=== PATIENT | female | born 1960 | race African-American/Black ===

== ENCOUNTER 2025-01-14 14:37 | Emergency (ER) | payer MEDICARE, SELFPAY ==
[2025-01-14] VITALS (23 sets, daily range): BP systolic 109–174; BP diastolic 66–98; PULSE 69–95; RESP 11–22; TEMP 36.3–36.8; O2SAT 92–100
--- NOTE | ~2025-01-14 | CT_ITS ---
EXAMINATION: CT chest abdomen pelvis wo con DATE: 01/14/2025 15:51 INDICATION: abdominal pain CONTRAST ALLERGY . TECHNIQUE: Computed tomography (CT) of the chest, abdomen, and pelvis was performed with 100 mL Omnip aque-350 intravenous contrast. Automated exposure control and iterative reconstruction technique were employed. The dose-length product was 1317.78 mGy-cm. COMPARISON: None FINDINGS: CHEST: Thoracic aorta: No significant dilation. No dissection. Moderate arch calcification. Lung parenchyma and airways: Lungs and airways are clear. Thoracic inlet, axillae and chest wall: 1.6 cm left thyroid nodule. Post surgical change in the left breast. Dermal thickening over the left breast. Mediastinum: No mass or lymphadenopathy. Heart and pericardium: Mild cardiomegaly. Mitral calcification. Small volume pericardial fluid. Coronary artery calcifications: Mild. Pleura: No effusion or mass. Thoracic bones: No acute osseous finding in the chest. Scoliosis. Vertebroplasty cement at T8 and T9. ABDOMEN/PELVIS: Liver: 4.3 cm right lobe mass. Linear and serpiginous hyperdensities in the left lobe, likely represe nting an area of post procedural change. Biliary/Gallbladder: Gallbladder is normal. No bile duct dilation. Pancreas: No mass or duct dilation. Spleen: Multiple hypodensities in the spleen. Adrenals:10.1 cm right adrenal mass with calcifications and macroscopic fat. Normal left adrenal glan d. Kidneys: 14 mm exophytic indeterminate density lesion in the posterior right midpole. 5 mm partially exophytic indeterminate density lesion in the posteromedial left midpole. Large bilateral simple albertina l cysts measuring up to 9.0 cm on the right. Multiple additional subcentimeter renal hypodensities, t oo small to characterize, but likely represent cysts. GI tract: Status post right hemicolectomy. Uncomplicated anastomosis. No small or large bowel dilatio n. Surgically absent appendix. Diverticulosis without diverticulitis. Mesentery/Peritoneum: No ascites, mass, or free air. Retroperitoneum: No mass Atherosclerotic calcifications of intra-abdominal arterial vessels. Pelvis: The urinary bladder is mostly empty. Small appearing uterus, likely secondary to partial hyst erectomy. Bilateral ovaries not confidently identified. Soft Tissues: Small, uncomplicated fat-containing periumbilical hernias. Right gluteal injection site s. Right posterior drug pump, catheter terminates over the lower thoracic spine. Abdominopelvic bones: No acute osseous finding in the abdomen/pelvis. IMPRESSION: 1.6 cm left thyroid nodule, recommend outpatient thyroid ultrasound for further characterization. Mild cardiomegaly. Trace pericardial effusion. Dermal thickening in left breast, correlate clinically for findings of infiltrative carcinoma or infe ction. Post surgical changes in the left breast. 4.3 cm right liver lobe mass, concerning for metastatic disease. 10.1 cm right adrenal mass, may represent unilateral metastatic disease, or primary neoplastic lesion . Multiple indeterminate density renal lesions, may represent hemorrhagic/proteinaceous cysts, but catalina gnancy is not excluded. Comparison to outside studies would be helpful. Reviewed, dictated and finalized at location K. IMPRESSION: 1.6 cm left thyroid nodule, recommend outpatient thyroid ultrasound for further characterization. Mild cardiomegaly. Trace pericardial effusion. Dermal thickening in left breast, correlate clinically for findings of infiltra tive carcinoma or infection. Post surgical changes in the left breast. 4.3 cm right liver lobe mass, concerning for metastatic disease. 10.1 cm right adrenal mass, may represent unilateral metastatic disease, or ariel shamar neoplastic lesion. Multiple indeterminate density renal lesions, may represent hemorrhagic/protein aceous cysts, but malignancy is not excluded. Comparison to outside studies would be helpful.
--- NOTE | ~2025-01-14 | XR_ITS ---
EXAMINATION: XR chest 1V portable Exam Date/Time: 01/14/2025 15:07 CDT HISTORY: Shortness of breath Comparison: None. RESULT: Lines, tubes, and devices: Left axillary or left breast surgical clips. Vertebroplasty cement in the thoracic spine Lungs and pleura: Right hemidiaphragm elevation. Streaky right basilar opacities. Cardiomediastinal silhouette: Stable. Other: No acute osseous or upper abdominal finding. IMPRESSION: Right hemidiaphragm elevation with streaky bibasilar opacities likely representing scar/atelectasis. Reviewed, dictated and finalized at location K. IMPRESSION: Right hemidiaphragm elevation with streaky bibasilar opacities likely represent ing scar/atelectasis.
--- NOTE | ~2025-01-14 | CT_ITS ---
EXAMINATION: CT brain wo con DATE: 01/14/2025 15:44 INDICATION: Altered mental status . TECHNIQUE: Computed tomography (CT) of the head was performed without intravenous contrast. The mA wa s adjusted according to patient size. Iterative reconstruction technique was employed. The dose-lengt h product was 605.33 mGy-cm. COMPARISON: None. FINDINGS: No acute intracranial hemorrhage or extra-axial fluid collection. No hydrocephalus, mass, or herniation. No acute ischemic infarct. Unremarkable dural venous sinus attenuation. No acute osseous abnormality. The aerated spaces are clear. Mild atrophy and chronic white matter change. Atherosclerotic intracranial calcification. IMPRESSION: No acute intracranial process. Reviewed, dictated and finalized at location K.
--- NOTE | 2025-01-14 14:42 | ECG_ITS ---
Test Date: 2025-01-14 14:41:05 Measurements Intervals [place] Rate: 72 P: 42 IA: 157 QRS: -34 QRSD: 107 T: -2 QT: 400 QTc: 439 Interpretive Statements SINUS RHYTHM LEFT AXIS DEVIATION [QRS AXIS < -30] No previous ECG available for comparison Electronically Signed On 01-15-2025 22:33:57 CDT by Carla Jeter M.D.
[2025-01-14 15:00] LABS: Hematocrit 37.1 % (37.0-47.0); Hemoglobin 11.5 g/dL (12.0-15.0); Immature Granulocyte Percent A 0.9 % (0-0.5); Lymphocytes Absolute Auto 1.53 K/mm3 (0.9-3.2); Mean Corpuscular HGB Conc 31.0 g/dl (32-36); Mean Corpuscular Hemoglobin 26.4 pg (26-34); Mean Corpuscular Volume 85.1 fl (80-100); Nucleated Red Blood Cells Absolute Auto 0.000 K/mm3 (0.0-0.012); Nucleated Red Blood Cells Perc 0.0 % (0.0-0.2); Platelet Count Result 315 k/mm3 (150-375); Red Blood Count 4.36 M/mm3 (4.2-5.4); White Blood Count 10.1 K/mm3 (4.5-10.0)
[2025-01-14 15:12] LABS: Alanine Aminotransferase 24 U/L (6-35); Albumin Level 4.0 g/dL (3.5-5.1); Alkaline Phosphatase 67 U/L (38-126); Anion Gap 9 mmol/L (4-12); Aspartate Amino Transferase 28 U/L (14-36); Bilirubin,Total 0.6 mg/dL (0.2-1.3); Blood Urea Nitrogen 33 mg/dL (7-17); Calcium 9.5 mg/dL (8.4-10.2); Carbon Dioxide 29 mmol/L (22-30); Chloride 103 mmol/L (98-107); Estimated CRCL calculation 35 ml/min; Estimated Glomerular Filt Rate 29; Glucose 204 mg/dL (65-110); Lipase 33 U/L (23-300); Magnesium 1.9 mg/dL (1.6-2.3); Potassium 3.8 mmol/L (3.4-5.0); Sodium 141 mmol/L (137-145); Total Protein 7.4 g/dL (6.3-8.2)
[2025-01-14 15:16] LABS: INR 1.0; Partial Thromboplastin Time 28.9 Seconds (22.3-36.8); Prothrombin Time 13.3 Seconds (11.1-14.7)
[2025-01-14 15:22] LABS: NT Pro B Type Natriuretic Pept 551 pg/mL (19.9-100); Troponin I < 0.012 ng/mL (0.000-0.034)
--- OUTSIDE RECORDS SUMMARY | 2025-01-14 15:26 | XMS_ITS | Encounter Summary ---
Author Organization [facility] Address [address] [place] [address] Phone Care Team Providers Care Director Correctional Agency Name Role Phone London Jackson MD Primary Care Provider + Nestor Antunez MD Primary Care Provider Inocencia Altman CARRY OUT CLERK AND SHELF STOCKER Unavailable Nazanin Granados MD Unavailable Efrem Mcdaniels MD Unavailable Unknown, Notinfile Primary Care Provider Unavail able Nestor Antunez MD Primary Care Provider Lauren Manley RN Unavailable [phone] Brigida Ocasio CARRY OUT CLERK AND SHELF STOCKER Primary Care Provider Jimi Rosario MD Unavailable Jean Marie Valerio MD Primary Care Provider Annalee Donovan CARRY OUT CLERK AND SHELF STOCKER Primary Care Provider [phone] Ariella Carr RN Unavailable Soni Osman LCSW Unavailable Antonio Rendon MD Primary Care Provider Annalee Donovan NP Primary Care Provider [phone] Encounter Details Date Type Department Care Team (Latest Contact Info) Description 05/26/2019 Orders Only [facility] Scanning, Provider Social History Tobacco Use Types Packs/Day Years Used Date Smoking Tobacco: Every Day Cigarettes 0.3 45 Smokeless Tobacco: Never Alcohol Use Standard Drinks/Week Comments Not Currently 0 (1 standard drink = 0.6 oz pur e alcohol) Comments No Sex and Gender Information Value Date Recorded Sex Assigned at Not on file Legal Sex Female 7:39 AM CADDIE Gender Identity Not on file Sexual Orientation Not on file documented as of this encounter Plan of Treatment Not on file documented as of this encounter Procedures Procedure Name Priority Date/Time Associated Diagnosis Comments SCAN - RADIOLOGY/IMAGING 05/26/2019 documented in this encounter Results * SCAN - RADIOLOGY/IMAGING (05/26/2019) Anatomical Region Laterality Modality Other us Provider Scanning Final Result documented in this encounter Visit Diagnoses Not on filedocumented in this encounter Additional Health Concerns Infection Onset Date Last Indicated Resolved Time COVID19 Comment:Positive COVID-19 result from OSH on 12/18. Patient asymptomatic. Patient meets criteria for isolation discontinuation. Molly Turner Cleaning 01/31/2020 01/30/2020 01/30/2020 01/31/2020 12:25 PM CDT COVID: Suspected 02/25/2022 02/25/2022 02/25/2022 4:31 PM CDT COVID: Suspected 04/09/2023 04/09/2023 04/09/2023 9:58 PM CDT documented as of this encounter Care Teams Director Correctional Agency Relationship Specialty Start Date End Date London Jackson MD [address] [place] [address] PCP - General Internal Medicine 05/12/19 05/02/20 Nestor Antunez MD [address] [place] [address] PCP - General Family Medicine 05/03/20 09/10/20 Unknown, Notinfile PCP - General 09/11/20 09/12/20 Nestor Antunez MD [address] [place] [address] PCP - General 09/13/20 10/21/20 Brigida Ocasio, RASHAWN [address] [place] [address] [address], [place] [address] PCP - General Family Medicine 10/22/20 10/18/22 Jean Marie Valerio MD [address] [place] [address] [address] [place] [place] [address] PCP - General Internal Medicine 10/19/22 10/28/22 Annalee Donovan NP [address] [place] [address] [address] [facility] [place] [address] PCP - General Nurse Practitioner 10/29/22 06/13/23 Antonio Rendon MD [address] [address] PCP - General Family Medicine 06/14/23 06/15/23 Annalee Donovan CARRY OUT CLERK AND SHELF STOCKER [address] [facility] [address] [address] PCP - General Internal Medicine 06/16/23 10/31/24 Inocencia Altman NP [address] [place] [address] [address] [address] Obstetrics and Gynecology 05/03/20 10/18/22 Nazanin Granados MD [address] [place] [address] [address] [address] Medical Oncologist/Snow Groomer Medical Oncology 05/03/20 08/18/20 Efrem Mcdaniels MD [address] [facility] [address] [place] [address] Consulting Physician Medical Oncology 08/19/20 10/18/22 Lauren Manley RN [address] [place] [address] [address] [place] [address] Audio Visual Project Manager 09/16/20 10/15/20 Jimi Rosario MD [address] [facility] [address], [place] [address] Medical Oncologist/Snow Groomer Hematology and Oncology 08/28/22 Ariella Carr, AUBREY [address] [place] [address] [address] [place] [address] Audio Visual Project Manager 04/07/23 05/04/23 Soni Osman, GROUP LEADER SEMICONDUCTOR TESTING[address] [place] [address] Supervisor Research Shop 04/12/23 04/13/23 documented as of this encounter
--- OUTSIDE RECORDS SUMMARY | 2025-01-14 15:26 | XMS_ITS ---
Author Organization [facility] Address [address] [place] [address] Care Team Providers Care Phlebotomist Associate Name Role Phone Jennifer Mccoy RN Unavailable [phone] Fany Archuleta MANAGER ACCOUNT MANAGEMENT-CRAP GAME BOX PERSON Unavailable [phone] Ondina Brannon CERAMIC TILE INSTALLER Unavailable Jimmie Hampton MD Unavailable Active Problems Problem Noted Date Diagnosed Date Class 1 obesity with serious comorbidity and body mass index (BMI) of 32.0 to 32.9 in adult 11/29/2018 Assessment & Plan (04/03/2019 12:04 PM CDT): Weight slowly going up Assessment & Plan (11/29/2018 8:55 PM CDT): Monitor weight for now Right flank pain 05/25/2018 Nausea & vomiting 03/21/2018 Chronic right-sided thoracic back pain 8 Lung nodule < 6cm on CT 01/05/2018 Essential hypertension 10/26/2017 Assessment & Plan (04/03/2019 12:04 PM CDT): Blood pressure is good, states she has been taking 120 mg of nifedipine instead of 60 mg on file. She is not sure about it, will send me a message in my chart after she double checks it Continue rest of the medications as usual Assessment & Plan (11/29/2018 8:55 PM CDT): Continue nifedipine and hctz. Use clonidine as needed Dash diet Assessment & Plan (07/21/2018 1:13 PM VARITYPIST): Continue same plan for htn Dash diet Shortness of breath 10/26/2017 Type 2 diabetes mellitus wit h hyperglycemia, with long-term current use of insulin 08/25/2016 Assessment & Plan (04/03/2019 12:04 PM CDT): She has been taking metformin only once a day. I advised her to start taking it twice a day, continue same dose of Novolin She has not been checking glucose numbers. I gave her script for freestyle saida check blood glucose before taking insulin Advised her low blood glucose levels Are fatal I have counseled patient about the need for tight glycemic control and the technician terminal and repeater complications of diabetes. Also counseled patient about the need to carbohydrate intake to less than 200 g per day. Counseled patient about the long-term complications of uncontrolled diabetes including kidney failure leading to dialysis, cardiovascular accidents, neuropathy and angiopathy leading to loss of limbs, loss of vision she will make an appointment with [facility] Assessment & Plan (11/29/2018 8:55 PM CDT): a1c improved Continue same dose of novolin I have counseled patient about the need for tight glycemic control and the technician terminal and repeater complications of diabetes. Also counseled patient about the need to carbohydrate intake to less than 200 g per day. Counseled patient about the long-term complications of uncontrolled diabetes including kidney failure leading to dialysis, cardiovascular accidents, neuropathy and angiopathy leading to loss of limbs, loss of vision Assessment & Plan (07/21/2018 1:12 PM VARITYPIST): a1c has improved. Continue same plan for now Advised her to be compliant with meds I have counseled patient about the need for tight glycemic control and the custodial complications of diabetes. Also counseled patient about the need to carbohydrate intake to less than 200 g per day. Counseled patient about the long-term complications of uncontrolled diabetes including kidney failure leading to dialysis, cardiovascular accidents, neuropathy and angiopathy leading to loss of limbs, loss of vision I have counseled the patient about the adverse effects of metformin including diarrhea and in some rare cases low blood glucose values. 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 Current Treatment and Therapy Plans OCTREOTIDE (SANDOSTATIN LAR) THERAPY PLAN* Plan Start Date:10/27/2016 Plan Provider:Chelita Tucker MD Linked Problems Malignant carcinoid tumor of ileum (HCC)Non-intractable vomiting with nausea, unspecified vomiting type Treatment Medications No medications scheduled. Past Treatment and Therapy Plans No past plan information found. Resolved Problems Problem Noted Date Diagnosed Date Resolved Date Other chest pain 04/29/2017 10/26/2017 UTI (urinary tract infection) 08/27/2016 09/10/2016 Cough 09/26/2011 10/26/2017 Chest pain, pleuritic 09/26/20112017
--- OUTSIDE RECORDS SUMMARY | 2025-01-14 15:26 | XMS_ITS | Encounter Summary ---
Author Organization [facility] Health Address [address] [place] [address] Care Team Providers Care Recycling Program Manager Name Role Phone Jennifer Mccoy RN Unavailable Carine Watson MD Unavailable Fany Archuleta APRN-CHAIN TESTING MACHINE OPERATOR Unavailable [phone] Salud Ondina GATEMAN Unavailable Jimmie Hampton MD Unavailable Sebastian Perez MD Primary Care Provider Sebastian Head MD Primary Care Provider Sebastian Head MD Unavailable Unavailable Encounter Details Date Type Department Care Team (Late st Contact Info) Description 04/13/2017 [facility] Outpatient Visit [facility] [address] [place] [address] Tobi Espinoza MD [address] [address] Social History Tobacco Use Types Packs/Day Years Used Date Smoking Tobacco: Some Days Cigarettes Smokeless Tobacco: Never Comments:social smoker only Alcohol Use Standard Drinks/Week Comments No 0 (1 standard drink = 0.6 oz pur e alcohol) Comments No Sex and Gender Information Value Date Recorded Sex Assigned at Not on file Legal Sex Female 5:10 AM OWNER OPERATOR Gender Identity Not on file Sexual Orientation Not on file documented as of this encounter Functional Status * Is person deaf or have serious hearing difficulty? Answer Date of Assessment Author No 07/31/2016 1:35 AM OWNER OPERATOR Armand, Be th, LABOR AND DELIVERY REGISTERED NURSE-CHAIN TESTING MACHINE OPERATOR * Is person blind or have serious difficulty seeing? Answer Date of Assessment Author No 07/31/2016 1:35 AM OWNER OPERATOR Armand, Be th, LABOR AND DELIVERY REGISTERED NURSE-CHAIN TESTING MACHINE OPERATOR * Does person have serious difficulty walking/climbing stairs? Answer Date of Assessment Author No 07/31/2016 1:35 AM OWNER OPERATOR Armand, Be th, LABOR AND DELIVERY REGISTERED NURSE-CHAIN TESTING MACHINE OPERATOR * Does person have difficulty dressing/bathing? Answer Date of Assessment Author No 07/31/2016 1:35 AM OWNER OPERATOR Armand, Be th, LABOR AND DELIVERY REGISTERED NURSE-CHAIN TESTING MACHINE OPERATOR * Does person have difficulty doing errands alone? Answer Date of Assessment Author No 07/31/2016 1:35 AM OWNER OPERATOR Armand, Be th, LABOR AND DELIVERY REGISTERED NURSE-CHAIN TESTING MACHINE OPERATOR documented as of this encounter Mental Status * Does person have difficulty concentrating/remembering/making decisions? Answer Entry Date Author No 07/31/2016 1:35 AM OWNER OPERATOR Armand, Be th, LABOR AND DELIVERY REGISTERED NURSE-CHAIN TESTING MACHINE OPERATOR documented in this encounter Plan of Treatment Not on file documented as of this encounter Visit Diagnoses Not on filedocumented in this encounter Care Teams Recycling Program Manager Relationship Specialty [place] [address] [place] [address] PCP - General Family Medicine 06/10/18 8 [place] [address] [place] [address] PCP - General Family Medicine 07/19/18 11/10/20 Sebastian Perez MD per [id number] PCP - Attributed-[facility] 08/12/19 Jennifer Mccoy RN Drafter (Cad) Electrical 03/31/16 Carine Watson MD [address] [facility] [address] [place] [address] Oncology 04/09/16 07/19/18 Fany Archuleta APRN-CHAIN TESTING MACHINE OPERATOR [address] [place] [address] [address] [place] [address] Nurse Practitioner Nurse Practitioner 04/09/16 Ondina Brannon MSW [place] Sql Analyst 07/31/16 [place] [address] [facility] [address] [place] [address] Pin Chaser Rheumatology 05/31/17 documented as of this encounter
--- OUTSIDE RECORDS SUMMARY | 2025-01-14 15:26 | XMS_ITS | Encounter Summary ---
Author Organization [facility] Address [address] [facility] [place] [address] Phone Care Team Providers Care Ward Service Supervisor Name Role Phone Osito Hong APRN, LIVE OUT NANNY Primary Care Pr ovider Sahil Iyer MD Unavailable [phone] Kael Angela MD Unavailable [phone] Ana Maria Esparza Unavailable Unavaila Alex Fischer MD Unavailable [phone] Kirill Gil MD Unavailable Encounter Details Date Type Department Care Team (Late st Contact Info) Description 07/17/2024 Patient Out[address] [facility] Oncology Services [address] [place] [id number] Ana Maria Esparza RMA [place] Social History Tobacco Use Types Packs/Day Years Used Date Smoking Tobacco: Every Day Cigarettes 0.5 54.5 Started: 1968 Smokeless Tobacco: Never Alcohol Use Standard Drinks/Week Comments Not Currently 0 (1 standard drink = 0.6 oz pur e alcohol) Rare [facility] Utilities Answer Date Recorded In the past 12 months has e electric, gas, oil, or water company threatened to shut off services in your home? No 03/29/2024 Social Connection and Isolation Panel Answer Date Recorded In a typical week, how many times do you talk on the phone with family, friends, or neighbors? More than three times a week 03/29/2024 How often do you get togethe r with friends or relatives? Three times a week 03/29/2024 How often do you attend chur ch or hinduism services? More than 4 times per year 03/29/2024 Do you belong to any clubs o r organizations such as yazidism groups, unions, fraternal or athletic groups, or school groups? Yes 03/29/2024 How often do you attend meet ings of the clubs or organizations you belong to? More than 4 times per year 03/29/2024 Are you , , di vorced, , never , or living with a partner? Never 03/29/2024 AUDIT-C Answer Date Recorded Q1: How often do you have a drink containing alcohol? Monthly or less 03/29/2024 Q2: How many drinks containi ng alcohol do you have on a typical day when you are drinking? Patient does not drink Q3: How often do you have si x or more drinks on one occasion? Never 03/29/2024 Overall Financial Resource Strain (CARDIA) Answe r Date Recorded How hard is it for you to pa y for the very basics like food, housing, medical care, and heating? Somewhat hard 03/29/2024 [facility] [place] of Occupat ional Health - Occupational Stress Questionnaire Answer Date Recorded Do you feel stress - tense, restless, nervous, or anxious, or unable to sleep at night because your mind is troubled all the time - these days? Not at all 03/29/2024 Exercise Vital Sign Answer Date Recorde d On average, how many days pe r week do you engage in moderate to strenuous exercise (like a brisk walk)? Patient declined On average, how many minutes do you engage in exercise at this level? Patient declined 03/29/2024 Hunger Vital Sign Answer Date Recorded Within the past 12 months, y ou worried that your food would run out before you got the money to buy more. Never true Within the past 12 months, t he food you bought just didn't last and you didn't have money to get more. Sometimes true PRAPARE - Transportation Answer Date Re corded In the past 12 months, has l ack of transportation kept you from medical appointments or from getting medications? No 03/12 In the past 12 months, has l ack of transportation kept you from meetings, work, or from getting things needed for daily living? No 03/29/2024 Housing Stability Vital Sign Answer Oscar e Recorded In the last 12 months, was t here a time when you were not able to pay the mortgage or rent on time? No 03/29/2024 In the past 12 months, how m any times have you moved where you were living? 0 03/29/2024 At any time in the past 12 m ont, were you homeless or living in a chcf (including now)? No 03/29/2024 Sexually Active Control Partners Comments Not Currently Comments No Sex and Gender Information Value Date Recorded Sex Assigned at Not on file Legal Sex Female 4:44 PM CDT Gender Identity Female 05/27/2023 6:50 AM LOAN ANALYST Sexual Orientation Not on file documented as of this encounter Plan of Treatment Upcoming Encounters Date Type Department Care Team (Latest Contact Info) Description 01/24/2025 10:30 AM CDT Clinical Support [facility] Oncology Services [address] [place] [address] Sahil Iyer MD [address] [place] [address] Discharge Disposition: Discharged to home or Selfcare 02/12/2025 10:00 AM CDT Office Visit [facility] Medical Group - Endocrinology - [place] [address] [place] [address] Kirill Gil MD [address] [address] 02/21/2025 10:30 AM CDT Clinical Support [facility] [place] On[facility] Services [address] [place] [address] Sahil Iyer MD [address] [place] [address] Discharge Disposition: Discharged to home or Selfcare 03/01/2025 9:00 AM CDT Office Visit [facility] Oncology Services [address] [place] [address] Sahil Iyer MD [address] [place] [address] Discharge Disposition: Discharged to home or Selfcare 03/26/2025 10:45 AM CDT Office Visit [facility] Medical [facility] - Family [facility] [address] [place] [address] Ostio Hong APRN, LIVE OUT NANNY [address] [address] 04/03/2025 9:00 AM CDT Office Visit [facility] Oncology Services [address] [place] [phone] Alex Ahumada MD [address] [place] [address] Discharge Disposition: Discharged to home or Selfcare documented as of this encounter Visit Diagnoses Not on filedocumented in this encounter Care Teams Ward Service Supervisor Relationship Specialty Start Date End Date Osito Hong APRN, LIVE OUT NANNY [address] [address] PCP - General Advanced Practice Nurse 12/31/23 Sahil Iyer MD [address] [place] [address] Consulting Physician Medical Oncology 05/31/23 Kael Angela MD #[address] [address] Consulting Physician General Surgery 05/30/24 Ana Maria Esparza, [facility] Patient Navigator 06/26/24 07/17/24 Alex Ahumada MD [address] [place] [address] Consulting Physician Radiation Oncology 07/26/24 Kirill Gil MD [address] [address] Consulting Physician Endocrinology 11/07/24 documented as of this encounter
--- OUTSIDE RECORDS SUMMARY | 2025-01-14 15:26 | XMS_ITS | Encounter Summary ---
Author Organization [facility] Address [address] [place] [address] Phone Care Team Providers Care Early Head Start Director Name Role Phone Osito Hong APRN, ARBOR END MAINSPRING FORMER Primary Care Pr ovider Sahil Iyer MD Unavailable [phone] Kael Angela MD Unavailable [phone] Ana Maria Esparza RMJohnny Unavailable Unavaila ble Alex Ahumada MD Unavailable [phone] Kirill Gil MD Unavailable Reason for Visit * Reason Comments Medication Refill Encounter Details Date Type Department Care Team (Late st Contact Info) Description 03/16/2024 [facility]ill [facility] [address] [place] [phone] Antonio Rendon MD [address] [place] [address] Medication Refill Social History Tobacco Use Types Packs/Day Years Used Date Smoking Tobacco: Every Day Cigarettes Smokeless Tobacco: Never Alcohol Use Standard Drinks/Week Comments Not Currently 0 (1 standard drink = 0.6 oz pur e alcohol) Rare Comments No Sex and Gender Information Value Date Recorded Sex Assigned at Not on file Legal Sex Female 4:44 PM CDT Gender Identity Female 05/27/2023 6:50 AM MARRIAGE AND FAMILY SOCIAL WORKER Sexual Orientation Not on file documented as of this encounter Miscellaneous Notes * Telephone Encounter - Shadia Philip RN - 03/16/2024 9:36 AM CDT Refills on file according to last Rx 12/21/23 - 1-year supply documented in this encounter Plan of Treatment Upcoming Encounters Date Type Department Care Team (Latest Contact Info) Description 01/24/2025 10:30 AM CDT Clinical Support [facility] Oncology Services [address] [place] [address] Sahil Iyer MD [address] [place] [address] Discharge Disposition: Discharged to home or Selfcare 02/12/2025 10:00 AM CDT Office Visit [facility] Medical Group - Endocrinology - [place] [address] [place] [address] Kirill Gil MD [address] [address] 02/21/2025 10:30 AM CDT Clinical Support [facility] Oncology Services [address] [place] [address] Sahil Iyer MD [address] [place] [address] Discharge Disposition: Discharged to home or Selfcare 03/01/2025 9:00 AM CDT Office Visit [facility] Oncology Services [address] [place] [address] Sahil Iyer MD [address] [place] [address] Discharge Disposition: Discharged to home or Selfcare 03/26/2025 10:45 AM CDT Office Visit [facility] Medical [facility] [place] [address] Osito Hong APRN, ARBOR END MAINSPRING FORMER [address] [address] 04/03/2025 9:00 AM CDT Office Visit [facility] Oncology Services [address] [place] [phone] Alex Ahumada MD [address] [place] [address] Discharge Disposition: Discharged to home or Selfcare documented as of this encounter Visit Diagnoses Not on filedocumented in this encounter Care Teams Early Head Start Director Relationship Specialty Start Date End Date Osito Hnog APRN, ARBOR END MAINSPRING FORMER [address] [address] PCP - General Advanced Practice Nurse 12/31/23 Sahil Iyer MD [address] [place] [address] Consulting Physician Medical Oncology 05/31/23 Kael Angela MD [address] [address] Consulting Physician General Surgery 05/30/24 Ana Maria Esparza Johnny [place] Patient Navigator 06/26/24 07/17/24 Alex Ahumada MD [address] [place] [address] Consulting Physician Radiation Oncology 07/26/24 Kirill Gil MD [address] [address] Consulting Physician Endocrinology 11/07/24 documented as of this encounter
--- OUTSIDE RECORDS SUMMARY | 2025-01-14 15:26 | XMS_ITS ---
Author Organization [facility] Address [address] [place] [address] Phone Care Team Providers Care Sales Enablement Manager Name Role Phone Osito Hong APRN, DRAWER HARDWARE WORKER Primary Care Pr ovider Sahil Iyre MD Unavailable [phone] Kael Angela MD Unavailable [phone] Alex Ahumada MD Unavailable [phone] Kirill Gil MD Unavailable Oncology Navigation Status:Enrolled (Active) Start date:06/26/2024 Enrollment date:06/26/2024 Overview Oncology Navigation is a program to identify any barriers that might prevent a patient from gettingtheir proper cancer treatment and provide interventions to help overcome those barriers. Continued Care and Services Coordination
--- OUTSIDE RECORDS SUMMARY | 2025-01-14 15:26 | XMS_ITS | Referral Summary ---
Author Organization [facility] Address [address] [place] [address] Care Team Providers Care Community Ambassador Name Role Phone Jimi Rosario MD Unavailable [phone] Allergies Active Allergy Reactions Criticality Noted Date Comments Iodinated Contrast Media Nausea & Vomiting Medium 04/26/2011 Fentanyl Other (See comments) Low 01/04/2018 I breakout in a sweat Gabapentin Muscle pain Medium 11/17/2019 Takes pregabalin at home 04/02/23 Gadobenate Dimeglumine Urticaria,Itching Medium 2017 Patient got hives from multihance Other reaction(s): Urticaria Patient got hives from multihance Patient got hives from multihance Lisinopril Cough Low 10/31/2012 Oxycodone Itching High 04/28/2018 Penicillins Rash Medium 04/26/2011 Zgmmiur-Xsa-Sph Reductase Inhibitors Muscle pain Medium 10/22/2020 Vancomycin Urticaria,Itching Medium 10/20/2017 Other reaction(s): Urticaria Medications ondansetron (ZOFRAN) 8 mg tablet Take 1 tablet (8 mg total) by mouth every 6 hours as needed for nausea or vomiting 8 Active cholecalciferol (VITAMIN D-3) 1,000 unit (25 mcg) tablet Take 1 tablet (1,000 Units total) by mouth daily Active blood-glucose meter misc 1 kit by Not Applicable route as directed 7 Active denosumab (XGEVA) 120 mg/1.7 mL (70 mg/mL) injection Inject 1.7 mL (120 mg total) under the skin every 3 (three) months Bone cancer Active octreotide LAR (SandoSTATIN LAR) 30 mg suspension,exte nded rel recon Inject 1 each (30 mg total) into the muscle as instructed every 28 (twenty-eight) days Active diphenhydrAMINE (Benadryl Allergy) 25 mg capsule Take 1 tablet/capsule (25 mg total) by mouth as needed for allergies (Take one hour prior to CT scan) For CAT scan 1 capsule 1 Active omega 0-hvl-yoo-fish oil 1,200 (144-216) mg capsule Take 1 capsule by mouth daily Active mecobalamin, vitamin B12, 1,000 mcg tablet,chewable Take 1,000 mcg by mouth daily Active meclizine (ANTIVERT) 25 mg tabletIndicatio ns:Vertigo Take 1 tablet (25 mg total) by mouth 3 (three) times a day as needed for dizziness 30 tablet 3 Active blood glucose control, normal solution Use with true humana true metrix 1 each 1 3 Active ferrous sulfate 325 mg (65 mg of elemental iron) tablet Take 1 tablet (325 mg total) by mouth daily with breakfast 90 tablet 1 3 Active pen needle, diabetic 31 gauge x /16 needle 1 Units by Not Applicable route 2 (two) times a day 180 each 1 3 Active cloNIDine (CATAPRES) 0.1 mg tabletIndicatio ns:Hypertension associated with diabetes (HCC) Take 1 tablet (0.1 mg total) by mouth 2 (two) times a day as needed for high blood pressure (BP>149/90) 60 tablet 2 3 Active NIFEdipine (NIFEdipine CC) 60 mg 24 hr tabletIndicatio ns:Hypertension associated with diabetes (HCC) Take 2 tablets (120 mg total) by mouth daily 180 tablet 3 3 Active losartan-hydroc hlorothiazide (HYZAAR) 100-25 mg per tabletIndicatio ns:Hypertension associated with diabetes (HCC) Take 1 tablet by mouth daily 90 tablet 3 3 Active magnesium hydroxide (MILK OF MAGNESIA) suspension 400 mg/5 mL Take 30 mL (2,400 mg total) by mouth every other day as needed Active chlorhexidine (PERIDEX) 0.12 % solutionIndicat ions:Mouth Infection Prevention Apply 15 mL to the mouth or throat 2 (two) times a day as needed for wound care 3 Active metFORMIN XR (GLUCOPHAGE XR) 500 mg 24 hr tabletIndicatio ns:Type 2 diabetes mellitus with diabetic polyneuropathy, with long-term current use of insulin (HCC) Take 2 tablets (1,000 mg total) by mouth daily with breakfast 3 Active methocarbamoL (ROBAXIN) 750 mg tabletIndicatio ns:Chronic bilateral low back pain without sciatica,Malign ant neoplasm metastatic to bone (HCC) Take 1 tablet (750 mg total) by mouth 3 (three) times a day as needed for muscle spasms 3 Active Additional Information Patient taking differently:750 mg oral 3 times daily PRN, muscle spasms,Patient reports taking it daily., Informant: Self, Reported on 04/15/2023 pregabalin (LYRICA) 50 mg capsuleIndicati ons:Diabetic Peripheral Neuropathy Take 1 capsule (50 mg total) by mouth 3 (three) times a day as needed (Neuropathic pain) 3 Active albuterol HFA (PROVENTIL HFA,VENTOLIN HFA,PROAIR HFA) 90 mcg/actuation inhaler Inhale 2 puffs every 4 (four) hours as needed for wheezing Active multivit idbiymlj-phwf-N A-calcium (THERA-M) 9 mg iron-400 mcg tabletIndicatio ns:Vitamin Deficiency Prevention Take 1 tablet by mouth daily Active TRUEplus Lancets 33 gauge misc USE FOR CHECKING BLOOD SUGAR DIRECTED 200 each 10 3 Active HYDROmorphone (DILAUDID) 2 mg tablet Take 1 tablet (2 mg total) by mouth every 6 (six) hours as needed 4 Active insulin NPH (NovoLIN N) 100 unit/mL (3 mL) pen for injection Inject 22 Units under the skin 2 (two) times a day with meals 3 Active naloxone (NARCAN) 4 mg/actuation spray,non-aeros ol Administer 1 spray into affected nostril(s) as needed 4 Active meloxicam (MOBIC) 7.5 mg tablet Take 1 tablet (7.5 mg total) by mouth daily for 30 days 3 Active potassium chloride ER 10 mEq CR tablet Take 3 tablet/capsule (30 mEq total) by mouth daily 4 Active sulfamethoxazol e-trimethoprim (BACTRIM DS) 800-160 mg per tablet Take one tab po BID 14 tablet 4 Active blood glucose diagnostic (True Metrix Glucose Test Strip) strip USE TO TEST BLOOD SUGAR 2 TO 3 TIMES A DAY 300 strip 3 4 Active Active Problems Problem Noted Date Diagnosed Date Malfunction of intrathecal infusion pump 024 Well woman exam with routine gynecological exam 04/29/2023 Assessment & Plan (04/29/2023 11:26 AM CDT): S/p hyst Pap smear: no history of abnormal Sexually transmitted disease screening: not indicated Mammogram: 01/2023 Osteoporosis with Dexa Scan: patient notes she had a bone scan 1 week ago, unable to find in chart at this time Hospital discharge follow-up 04/16/2023 Assessment & Plan (04/19/2023 7:27 AM CDT): I personally reviewed H and P documentation by ER provider and attending providers, labs, and procedure note by Dr. Madrid for patient's recent lumbar caudal epidural injection with steroids that was performed at [facility] Intractable low back pain 04/10/2023 Sacroiliitis 03/02/2023 Muscle spasm of back 12/17/2022 Assessment & Plan (12/17/2022 11:08 AM CDT): Acute on chronic- improving, not at goal with current medication Encouraged to continue with methocarbamol 750 mg tid rather than prn as she had been doing to help prevent recurring or worsening of muscle spasms Warm heating pad can be beneficial for muscle spasms at 20 minute intervals 3 to 4 times daily Encounter for follow-up exam ination after completed treatment for conditions other than malignant neoplasm 12/17/2022 Assessment & Plan (04/11/2023 1:11 PM CDT): I personally reviewed H&P documentation by ER and attending providers at [facility], labs, MRI imaging, and X-ray imaging during patient stay on 04/02/2023 through 04/06/2023 at [facility]. Follow up as scheduled with me sooner prn Medications reviewed and reconciled this visit Will continue to monitor lab values as they are scanned in to me from her Oncology orders. Assessment & Plan (12/17/2022 11:46 AM CDT): I personally reviewed patient H&P documentation from her ER visit to [facility] on 12/10/2022 for severe back pain exacerbation. I reviewed patient MRI she had while at the ER on 12/10/22, reviewed lab values, and medications. Medication reconciliation completed. Follow up as scheduled with me sooner prn Will continue to monitor lab values as they are scanned in to me from her Oncology orders. Encounter for medical examination to establish c are 10/29/2022 Assessment & Plan (10/29/2022 4:07 PM CDT): Return to clinic in 4 months Labs ordered- tsh, a1c, micro/album urine Continue current rx medications- no refills needed at this time, states previous pcp filled for 1 year Minimal labs will be needed- from this office- has labs completed monthly with oncology Tinnitus aurium, unspecified laterality 10/30/19 Assessment & Plan (10/30/2022 12:35 PM CDT): Worsening with increased hearing loss to bilateral ears Follow up with ENT as scheduled and with and rescue fire fighter crash fire for hearing screening Impacted cerumen of right ear 10/29/2022 Assessment & Plan (10/29/2022 4:28 PM CDT): Encouraged to discuss with ENT at appointment Offered to have cerumen lavaged-patient refused stating that has been tried and unable to remove Hypokalemia 10/12/2022 Assessment & Plan (03/01/2023 9:29 AM CDT): Chronic problem-this is being monitored by her oncologist Dr. Rosario Last potassium level 3.0 States potassium dosage was increased at her last visit with Oncology Encouraged to consume foods high in potassium as well as continuing her potassium as directed by Oncology Assessment & Plan (10/12/2022 3:25 PM CDT): Admits to dietary changes-decreased potassium intake. Previously had more potassium rich. She has a follow-up scheduled with Oncology. Counseled to consume not only the potassium prescription as well as her normal diet to assist with maintaining her levels. 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 Continue current regimen. Assessment & Plan (04/30/2022 10:10 AM CDT): Will send out stool softner. Occurred after increase in intrathecal pump. Grief at loss of child 04/30/2022 Assessment & Plan (04/30/2022 10:35 AM CDT): Referral information given for counseling. NO SI/HI. Leg pain, bilateral 03/08/2022 Assessment & Plan (04/30/2022 10:17 AM CDT): She has been having continued right upper leg pain, left has decreased significantly. Not excruciating. She has improved with pump increase and use of muscle relaxers. She still seeing Dr. Sun. Assessment & Plan (03/20/2022 11:24 AM CDT): Improved. Etiology still unclear. ? Strain. Xrays unremarkable. CT scan finding- PET is ordered. Has not used dilaudid. Has used robaxin. Assessment & Plan (03/08/2022 9:32 AM CDT): Acutely worsening, but noted to have improvement with the use of robaxin. Will increase to tid. ? Muscle involvement? Imaging (xrays) ordered. PET scan-will see if can be moved up due to increased pain and hx of CA/abnormal CT. Con't to follow- up with pain mgmt. Morbid obesity with BMI of 40.0-44.9, adult 11/09 Assessment & Plan (03/01/2023 9:18 AM CDT): Chronic- stable Discussed the need to follow healthy diet and exercise. Nutritional counseling addressed. BMI 40.25 (last BMI 40.99)-slight improvement since last visit, BMI not at goal of less than 30 Will continue to monitor Patient has difficult time exercising due to cancer pain Assessment & Plan (10/30/2022 12:38 PM CDT): Chronic- worsening Discussed the need to follow healthy diet and exercise. Nutritional counseling addressed. Will consider adding GLP1 next visit if no weight loss Will consider consult for weight loss clinic if increased weight continues BMI 40.99 (last BMI 40.62) Assessment & Plan (10/12/2022 3:26 PM CDT): Worsening. Body mass index is 40.62 kg/m . BMI Follow-up includes: nutrition counseling, exercise counseling and education provided. Consider GLP1 to assist if continues. Assessment & Plan (03/20/2022 11:30 AM CDT): Stable. Body mass index is 37.2 kg/m . BMI Follow-up includes: education provided. Assessment & Plan (11/20/2021 2:15 PM CDT): Body mass index is 35.28 kg/m . BMI Follow-up includes: nutrition counseling and education provided. Tobacco abuse disorder 05/16/2021 Assessment & Plan (10/29/2022 4:08 PM CDT): Chronic, stable, unchanged. We discussed smoking cessation for 5 minutes-patient not ready, states this is how she comforts herself since loss of son in February of 2022 Assessment & Plan (10/12/2022 3:19 PM CDT): Chronic. Unchanged. Counseled. Assessment & Plan (04/30/2022 10:14 AM CDT): She is up to 1/2 ppd-sometimes more than due to stress. She is aware of risk/benefits. Not ready to quit. Assessment & Plan (11/20/2021 2:16 PM CDT): Counseled on importance of cessation. Assessment & Plan (05/16/2021 8:55 PM CDT): Risk and benefits reviewed. Counseled on cessation. Marijuana abuse, continuous 05/16/2021 Assessment & Plan (04/30/2022 10:14 AM CDT): Continues to use inhaled for her appetite. She reports otherwise not able to maintain due to cancer. Ensure is used up to BID-difficulty getting in more than 1-2 meals per day. Assessment & Plan (05/16/2021 8:55 PM CDT): Risk and benefits reviewed. Counseled on cessation. Statin myopathy 04/29/2021 Assessment & Plan (04/30/2022 10:17 AM CDT): Has not taken fenofibrate. She is not candidate for statin-pain. Assessment & Plan (04/29/2021 10:41 AM CDT): Chronic. No change. Will have generalized body aches. Thyroid nodule 11/02/2020 Assessment & Plan (09/07/2021 9:40 PM ERGONOMIST): Con't to follow-up with endocrinology. Labs as ordered. Assessment & Plan (05/16/2021 8:50 PM CDT): Aware of risk. Pt is not wanting to have more procedures at this time. Will address at next ov. Assessment & Plan (11/02/2020 10:22 AM CDT): Mentioned but needing referral to ENT. Dr. Ferguson provided. Aware may need biopsy due tTRads 4 finding. Presence of intrathecal pump 09/23/2020 Assessment & Plan (04/19/2023 7:25 AM CDT): Chronic- stable Pain pump remains present and palpable to right lower lumbar region Follow up with pain management as scheduled-sooner prn Patient recently received lumbar caudal epidural injection during her recent admission under Dr. Shrestha Continue to monitor Assessment & Plan (04/11/2023 1:06 PM CDT): Chronic- stable Pain pump remains present and palpable to right lower lumbar region Recently followed up with pain management, intrathecal pump was refilled with Dilaudid Follow up with pain management as scheduled- encouraged to discuss with provider about possibly removing pain stimulator and being treated with oral pain medication Assessment & Plan (03/01/2023 9:16 AM CDT): Chronic- stable Pain pump remains present and palpable to right lower lumbar region Recently followed up with pain management, intrathecal pump was refilled with Dilaudid Patient encouraged to have documents regarding pain pump and medication with dosages faxed to this office for review Assessment & Plan (12/17/2022 11:09 AM CDT): Chronic Pain pump remains present and palpable to right lower lumbar region Assessment & Plan (10/29/2022 4:21 PM CDT): Follow up with Dr. Sun-pain management as scheduled Assessment & Plan (04/30/2022 10:23 AM CDT): Con't to follow-up with Dr. Sun for management. Assessment & Plan (11/02/2020 10:15 AM CDT): Sciatic like pain in back is well controlled. Con't to f/u with Dr. Sun for management of refills and monitoring of pump. Pain, cancer 09/23/2020 Assessment & Plan (11/02/2020 10:16 AM CDT): Controlled currently with regimen and intrathecal pain pump. Con't to f/u with pain mgmt for monitoring/filling (Corinne). Chronic bilateral low back pain with bilateral s ciatica 09/12/2020 Assessment & Plan (04/11/2023 1:12 PM CDT): Chronic- poorly controlled Continue with current medication regimen via pain pump as directed by pain management Follow up as scheduled with PM Avoid sitting or lying down for long periods Continue with Pregabalin 50 mg tid Assessment & Plan (03/01/2023 9:30 AM CDT): Chronic- improving Continue with current medication regimen via pain pump as directed by pain management Follow up as scheduled with PM Avoid sitting or lying down for long periods Continue with Pregabalin 50 mg tid Assessment & Plan (12/17/2022 11:55 AM CDT): Chronic- improving, not at goal Continue with current medication regimen via pain pump as directed by pain management Dr. Sun Follow up as scheduled with PM Avoid sitting or lying down for long periods Continue with Pregabalin 50 mg tid Assessment & Plan (04/30/2022 10:23 AM CDT): Con't to follow-up with Dr. Sun for management. Assessment & Plan (03/08/2022 9:34 AM CDT): Some sensation of gripping. Has not used, but has with this occurrence to use left over dilaudid from 2019. She reports that it has provided relief, but she is more concerned about cause of increased pain. CT scan had been obtained and abnormal was found in spine. She is very anxious about it being cancer related. No know precipitating factor. Secondary neuroendocrine tumors 09/05/2020 Assessment & Plan (03/20/2022 11:24 AM CDT): Con't to follow-up with oncology. Reports moving to care to [facility]. As needed place referral. Assessment & Plan (09/07/2021 9:39 PM ERGONOMIST): Con't to follow-up with oncology-Dr. Mcdaniels. Assessment & Plan (11/02/2020 10:14 AM CDT): Con't to f/u w/ Dr. Mcdaniels as well as Dr. Ferguson for management. At this time, energy level is acceptable and pain is controlled. Neuroendocrine cancer 09/04/2020 Assessment & Plan (03/01/2023 9:16 AM CDT): Follow up with Dr. Rosario as scheduled Routine labs per oncology recommendation Assessment & Plan (12/17/2022 11:10 AM CDT): Follow up with Dr. Rosario as scheduled Routine labs per oncology recommendation Assessment & Plan (10/29/2022 4:05 PM CDT): Follow up with Dr. Rosario as scheduled Assessment & Plan (04/30/2022 10:22 AM CDT): Con't to follow-up with Dr. Rosario for monitoring. Assessment & Plan (12/24/2020 1:10 PM CDT): Evaluation per ENT-negative. Assessment & Plan (11/02/2020 10:16 AM CDT): Con't to f/u w/ Dr. Mcdaniels as well as Dr. Ferguson for management. At this time, energy level is acceptable and pain is controlled. Need for immunization against influenza 07/16/19 21 Malignant neoplasm metastatic to bone 05/16/2019 Assessment & Plan (04/11/2023 1:06 PM CDT): Chronic problem-stable Continue to follow-up with Oncology Dr. Rosario Continue Robaxin 750 mg tablet-take 1 tablet 3 times daily Continue with infusions and other medication administration under Dr. Rosario direction Assessment & Plan (03/01/2023 9:23 AM CDT): Chronic problem-stable Continue to follow-up with Oncology Dr. Rosario Refilled Robaxin 750 mg tablet-take 1 tablet 3 times daily Continue with infusions and other medication administration under Dr. Rosario direction Assessment & Plan (09/08/2022 1:17 PM ERGONOMIST): Con't to follow-up with oncology-. Has infusion tomorrow. Assessment & Plan (04/30/2022 10:04 AM CDT): Newly established with Dr. Rosario. Reports that she has been feeling improvement. PET scan was. She will follow-up with him Wednesday for follow-up. Assessment & Plan (03/08/2022 9:36 AM CDT): Some concerns for ability to communicate with oncologist. Advised to follow-up with office to determine alternatives/options. Anxiety has increased with increased pain in bony structures/hx-very fearful. ? PET Scan moved up. Will message Dr. Mcdaniels to see if he has any option to medical appointment scheduler moving it forward. Assessment & Plan (05/03/2020 10:19 AM CDT): - she is on Denosumab injections every 3 months and Octreotide LAR injections monthly Carcinoid tumor 04/28/2019 Overview (05/11/2019): Metastasis to breast, spine, and liver. Assessment & Plan (04/30/2022 10:22 AM CDT): Con't to follow-up with Dr. Rosario for monitoring. 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 She reports receiving radiation to R paraspinal met. Has been on sandostatin for 3 years and recently started on Xgeva. -Obtain OSH records from [facility] in [place], [place] -Has oncology follow up in 3 weeks Hypertension associated with diabetes 04/28/2019 Assessment & Plan (04/19/2023 7:26 AM CDT): Chronic, controlled- continue current nifedipine 120 mg daily, clonidine 0.1mg BID prn for BP greater than 140/90, and losartan/hctz 100/25 mg daily, carvedilol 12.5 mg bid with meals Bp this visit 134/70 Continue to monitor blood pressure at home Follow-up as scheduled-sooner prn Recommend DASH diet, heart-healthy lifestyle, exercise. Discussed the risks of hypertension. Assessment & Plan (04/11/2023 1:08 PM CDT): Chronic, controlled- continue current nifedipine 120 mg daily, clonidine 0.1mg BID prn for BP greater than 140/90, and losartan/hctz 100/25 mg daily, carvedilol 12.5 mg bid with meals Bp this visit 148/92, rechecked 138/84- slightly better, but remained elevated Continue to monitor blood pressure at home Follow-up as scheduled-sooner prn Recommend DASH diet, heart-healthy lifestyle, exercise. Discussed the risks of hypertension. Assessment & Plan (03/01/2023 9:32 AM CDT): Chronic, controlled- continue current nifedipine 120 mg daily, clonidine 0.1mg BID prn for BP greater than 140/90, and losartan/hctz 100/25 mg daily Refills sent this visit for nifedipine 120 mg daily, losartan-HCTZ 100/25 mg daily Continue to monitor blood pressure at home Follow-up in 4 months- sooner p.r.n. Assessment & Plan (10/29/2022 4:11 PM CDT): Chronic, controlled- continue current nifedipine 120 mg daily, clonidine 0.1mg BID prn for BP greater than 140/90, and losartan/hctz 100/25 mg daily Assessment & Plan (10/12/2022 3:21 PM CDT): Controlled. Continue current regimen nifedipine 120 daily, clonidine 0.1 up to b.i.d. p.r.n. elevations greater than 149/90, and losartan hydrochlorothiazide 100/25.. Assessment & Plan (09/08/2022 1:58 PM ERGONOMIST): Elevated today. Has not taken PRN clonidine. Will monitor at home and call if consistently over goal of <130/80. Previously well controlled. Assessment & Plan (04/30/2022 10:16 AM CDT): Controlled. Continue current regimen clonidine 0.1 mg PRN, nifedipine 120 daily. Assessment & Plan (03/20/2022 11:29 AM CDT): Noted to above goal of <130/80. Reports that she is processing/planning her son's today. She has PRN clonidine at home and will monitor closely. Risk/Benefit reviewed. Assessment & Plan (11/20/2021 2:14 PM CDT): Controlled. Continue current regimen Losartan hydrochlorothiazide 100/25. With intermittent clonidine 0.1 mg as needed for elevations greater than 140/90. Assessment & Plan (09/07/2021 9:42 PM ERGONOMIST): Labs today. Continue current nifedipine 60 mg BID. Intermittently will use clonidine 0.1 mg if BP >149/90. Assessment & Plan (05/16/2021 8:53 PM CDT): Controlled. Continue current regimen Losartan 100/hydrochlorothiazide 25, Nifedipine 120 mg in the am Assessment & Plan (12/24/2020 1:10 PM CDT): Marginal control today. Admits that she is anxious today. Previously controlled on 12/12. Con't current. Monitor at home. Assessment & Plan (11/02/2020 10:21 AM CDT): Currently controlled on nifedipine 120 mg, losartan 100 mg and hctz 25 mg. She has anxiety associated with checking her blood pressures and refrains from doing so at home. She denies any symptoms at this time. Continue to monitor BP today 130/70 so at goal. Assessment & Plan (09/08/2020 4:50 PM ERGONOMIST): - not adequately controlled - clonidine 0.1mg BID, and HCTZ 25mg daily - she is no longer on Nifedipine 60mg, will need to check her home medications list - patient is in pain, maybe affected by it, will asl staff to call patient and have her check BP at home and report number to us -The 10-year ASCVD risk score (Elisabet CHASE Jr., et al., 2013) is: 43.6% Values used to calculate the score: Age: 60 years Sex: Female Is Non- : Yes Diabetic: Yes Tobacco smoker: Yes Systolic Blood Pressure: 152 mmHg Is BP treated: Yes HDL Cholesterol: 42 mg/dL Total Cholesterol: 182 mg/dL - patient already on Lipitor 20mg daily Assessment & Plan (08/12/2020 12:25 PM ERGONOMIST): Elevated in office today, patient in pain. Will stay at current dose but monitor BP at home. Assessment & Plan (06/03/2020 11:13 AM ERGONOMIST): - well controlled with current medication - clonidine 0.1mg, nifidepine Xl 60mg and HCTZ 25mg daily -The 10-year ASCVD risk score (Elisabet CHASE Jr., et al., 2013) is: 31.9% Values used to calculate the score: Age: 59 years Sex: Female Is Non- : Yes Diabetic: Yes Tobacco smoker: Yes Systolic Blood Pressure: 137 mmHg Is BP treated: Yes HDL Cholesterol: 51 mg/dL Total Cholesterol: 209 mg/dL - patient started on Lipitor 20mg once daily Assessment & Plan (05/03/2020 10:06 AM CDT): - she is currently on Clonidine 0.1mg BID PRN, Nifedipine XL 60mg and Hydrochlorothiazide 25mg - well controlled on current medication, compliant with medication - she is also on potassium ER 20meq BID Assessment & Plan (11/14/2019 3:32 PM CDT): Stable on hydrochlorothiazide and nifedipine Assessment & Plan (08/22/2019 12:03 PM ERGONOMIST): - home nifedipine and hctz Assessment & Plan (08/22/2019 1:16 AM ERGONOMIST): - home nifedipine and hctz Assessment & Plan (05/11/2019 2:15 PM CDT): Stable on hydrochlorothiazide and nifedipine Assessment & Plan (04/28/2019 1:30 AM CDT): -Cont nifedipine 120, HCTZ 25. Reports also taking clonidine 0.1 BID PRN for severe HTN, will hold for now. Type 2 diabetes mellitus wit h diabetic polyneuropathy, with long-term current use of insulin 04/28/2019 Assessment & Plan (04/19/2023 7:28 AM CDT): Chronic, normally controlled- last A1C 7.7, last FBG 193 (patient received steroids) Continue to monitor at home-log for next visit Healthy diet- low carb, no added sugars, fresh fruit in moderation Continue insulin 70/30 NPH- 30 units bid with meals Metformin 500 mg bid with meals Continue pregabalin 50 mg capsule 3 times daily prn Assessment & Plan (04/11/2023 1:04 PM CDT): Chronic, normally controlled- last A1C 7.7, last FBG 331 (patient received steroids) Continue to monitor at home-log for next visit Healthy diet- low carb, no added sugars, fresh fruit in moderation Continue insulin 70/30 NPH- 30 units bid with meals Metformin 500 mg bid with meals Assessment & Plan (04/29/2023 11:59 AM CDT): Chronic, stable- last A1C 7.7, last FBG 131 Continue to monitor at home-log for next visit Ordered labs- A1C, micro/album urine,cmp Healthy diet- low carb, no added sugars, fresh fruit in moderation Continue insulin 70/30 NPH- 30 units bid with meals-refill sent this visit Metformin 500 mg bid with meals- refill sent this visit Monofilament exam completed- normal, protective sense intact Assessment & Plan (10/29/2022 4:20 PM CDT): Chronic, stable- last A1C 7.7, last FBG 146 Continue to monitor at home-log for next visit Ordered labs- A1C, micro/album urine Healthy diet- low carb, no added sugars, fresh fruit in moderation Continue insulin 70/30 NPH- 30 units bid with meals Metformin 500 mg bid with meals Assessment & Plan (10/12/2022 3:20 PM CDT): Home readings overall have been stable. A1c in August was 7.7. Patient counseled. Reports that she is struggling with her diet. Assessment & Plan (09/08/2022 1:19 PM ERGONOMIST): Denies any concerns at this time. Has been monitoring. Continue current. Assessment & Plan (04/30/2022 10:18 AM CDT): fran cassidy completed this fall. BG-checking regularly 144. She reports that otherwise have controlled. She is taking 30 un 70/30 BID, metformin 500 xr- diarrhea if not. She will hold if she is not eating. Assessment & Plan (03/20/2022 11:25 AM CDT): Controlled. Continue current regimen and monitoring. Assessment & Plan (11/20/2021 2:14 PM CDT): Review last A1c. Repeat today. Continue metformin 500 XR. Continue NPH 70/30 30 units b.i.d.. Assessment & Plan (09/07/2021 9:41 PM ERGONOMIST): Labs today. Continue current metformin 500 mg bid, novolin 70/30 30units bid. Admits that she has more anorexia than previous. Eye exam. Assessment & Plan (05/16/2021 8:52 PM CDT): Labs today. Continue current regimen Metformin 1000 mg daily, Novolin 70/30 30 units b.i.d. Assessment & Plan (12/24/2020 1:13 PM CDT): Con't current dosing of NPH. 30 un BID. A1C at next f/u. Assessment & Plan (11/02/2020 10:14 AM CDT): A1C 6.9. Controlled. Continue current regimen of 70/30 2 units BID-prn for steroid use; metformin 500 mg BID. Eye exam is utd. Counseled on skin/foot exam. Assessment & Plan (09/08/2020 4:44 PM ERGONOMIST): - improved control - A1c is 6.9 08/2020 down from 8.1 - currently on Metformin 1000 mg BID - currently on Insulin NPH-insulin regular 30 units BID - foot exam up to date - eye exam up to date - she is on Vitamin B12 supplementation, iron supplements on her own, Vitamin D- 3 - reviewed most recent LDL 104 down from 130, she is on 20 mg Lipitor daily, goal is <100 - BP is not adequately controlled, she is not on an AceI or Arb - checks BG at home, checking it twice daily, most reading are between 80-100 Assessment & Plan (06/03/2020 11:11 AM ERGONOMIST): - A1c is 8.1 - currently on Metformin 1000 mg BID, was forgetting night time dose in the past - currently on Insulin NPH-insulin regular 30 units BID, now more compliant with night time insulin - foot exam completed today - she is on Vitamin B12 supplementation, iron supplements on her own, Vitamin D- 3 - reviewed most recent LDL which was 130 back in 08/2019 - BP is well controlled, she is not on an AceI or ARB - she is not on a statin, will start her on Atorvastatin 20mg once daily - checks BG at home, checking it twice daily mornings 175-200 and evening 225- 250 mostly Assessment & Plan (05/03/2020 10:12 AM CDT): - no recent A1c - currently on Metformin 1000 mg BID - supposed to be on Insulin NPH-insulin regular 30 units BID, but she is only taking it in morning only - foot exam to be done today - she is on Vitamin B12 supplementation, iron supplements on her own, Vitamin D- 3 - checks BG at home, checking it twice daily mornings 175-200 and evening 225- 250 mostly Assessment & Plan (11/17/2019 7:16 AM CDT): Hemoglobin A1c is slightly increased in August. Continue metformin and Novolin 70/30 30 units twice a day Assessment & Plan (08/22/2019 12:01 PM ERGONOMIST): - NPH 15 BID + lispro 8 with meals. - hold metformin - except temporary hyperglycemia due to prednisone with pre medication Assessment & Plan (08/22/2019 1:16 AM ERGONOMIST): - NPH 15 BID + lispro 8 with meals. - hold metformin - except temporary hyperglycemia due to prednisone with pre medication Assessment & Plan (05/11/2019 2:14 PM CDT): Stable on metformin and Novolin 70 30 30 is twice a day Assessment & Plan (04/28/2019 1:27 AM CDT): -Home regimen Novolin 70/30 30 BID, metformin 1000 BID -NPH 8 BID + lispro 3 units TID w/meals + LDSSI while inpatient, hold metformin. Mild intermittent asthma 04/28/2019 Assessment & Plan (10/29/2022 4:22 PM CDT): Chronic, stable Continue with albuterol inh 90 mcg- 2 puffs every 4 hours prn Assessment & Plan (10/12/2022 3:19 PM CDT): Controlled. Continue current regimen albuterol p.r.n.. Assessment & Plan (04/30/2022 10:22 AM CDT): Wheezing presently. DILAN is at home. Had to get a refill. Started in the past 2- 3 mo. More at night. She is smoking more-stress from daughter being ill. Assessment & Plan (11/20/2021 2:13 PM CDT): Controlled. Continue current regimen Intermittent albuterol. Counseled on smoking cessation. Assessment & Plan (09/07/2021 9:42 PM ERGONOMIST): Controlled. Continue current regimen of intermittent DILAN. Assessment & Plan (05/16/2021 8:56 PM CDT): Cessation of inhalants discussed. Controlled. Con't to monitor. Dilan utd. Assessment & Plan (11/02/2020 10:17 AM CDT): Currently controlled. Verified patient has albuterol inhaler that is current. Counseled on smoking cessation. Patient is not ready to quit. 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 Assessment & Plan (03/20/2022 11:23 AM CDT): [facility]. PET Scan was to be scheduled, but pt determined to change providers. Order in place. New back pain and CT finding. Assessment & Plan (11/02/2020 10:17 AM CDT): Con't to f/u w/ Dr. Mcdaniels as well as Dr. Marty for management. At this time, energy level is acceptable and pain is controlled. Resolved Problems Problem Noted Date Diagnosed Date Resolved Date Acute pain of right shoulder 06/23/2021 04/30/2022 Abnormal mammogram of left breast 12/24/2020 04/30/2022 Assessment & Plan (12/24/2020 1:14 PM CDT): Reviewed dx results from her mammogram. L breast with some cystic like. She is declining to see breast-copay concerns-would like to repeat. Advised to have completed prior to Halloween. Rib pain on right side 08/12/202010/22 Right hip pain 08/12/2020 11/02/2020 Class 2 severe obesity due t o excess calories with serious comorbidity and body mass index (BMI) of 37.0 to 37.9 in adult 06/03/2020 Assessment & Plan (09/08/2020 4:32 PM ERGONOMIST): Wt Readings from Last 3 Encounters: 09/03/20 99.5 kg (219 lb 6.4 oz) 08/22/20 100.9 kg (222 lb 6.4 oz) 08/13/20 101 kg (222 lb 10.6 oz) Body mass index is 37.46 kg/m . - some weight loss noted - BMI Follow-up includes: nutrition counseling, exercise counseling and education provided Assessment & Plan (06/03/2020 9:47 AM ERGONOMIST): - BMI Follow-up includes: nutrition counseling, exercise counseling and education provided Current every day cannabis vapor product user 05/03/2005/16/2021 Assessment & Plan (11/02/2020 10:20 AM CDT): MJ-7/wk smoking; ETOH 2-3/yr counseled on risk and benefit. Patient aware. Not ready to quit smoking. Contrast media allergy 05/03/202010/22 Overview (05/03/2020): - gets premedicated with prednisone as well as Benadryl prior to contrast studies. Assessment & Plan (05/03/2020 3:20 PM CDT): - gets premedicated with prednisone as well as Benadryl prior to contrast studies. Acute right-sided back pain 08/22/2019 10/22/2020 Assessment & Plan (08/22/2019 12:06 PM ERGONOMIST): - MRI with T8/9 metastatic disease (however patient has had prior kyphoplasty) which does not actually correlate with location of back pain. - no neuro deficits, per patient pain significantly improved with lidocaine patch, will continue. -Also continue dilaudid PO with morphine IV for breakthrough pain - MRI read ->Contrast-enhancing lesions in the T8 and T9 vertebral bodies suspicious for metastatic disease without evidence of pathologic fracture or leptomeningeal enhancement. Patient sp RF ablation and vertebroplasty to this region unchanged radiographic changes from prior. Assessment & Plan (08/22/2019 1:14 AM ERGONOMIST): - MRI with T8/9 metastatic disease (however patient has had prior kyphoplasty) which does not actually correlate with location of back pain. - no neuro deficits, per patient pain significantly improved with lidocaine patch, will continue. Also continue dilaudid PO with morphine IV for breakthrough pain - awaiting final MRI read Leucocytosis 08/22/2019 11/02/2020 Assessment & Plan (08/22/2019 12:52 PM ERGONOMIST): -WBC 16.3-> likely secondary to Prednisone Myalgia due to statin 05/12/20192020 Assessment & Plan (11/14/2019 3:36 PM CDT): Unable to take statin secondary to muscle aches Assessment & Plan (05/12/2019 10:09 AM CDT): Unable to take statin secondary to muscle aches. Uncontrolled pain 04/28/2019 11/02/2020 Assessment & Plan (11/17/2019 8:51 AM CDT): Pain controlled with methocarbamol. She does not take hydromorphone during the day because it makes her sleepy. Had been on gabapentin, but it made her hurt worse. Duloxetine 30 mg once a day. Will get a parking placard form because of her neuropathic pain. Assessment & Plan (05/12/2019 10:04 AM CDT): Pain currently controlled with methocarbamol. Does not take hydromorphone during there day because it makes her sleepy. Patient does use marijuana which helps the pain. Assessment & Plan (04/28/2019 1:35 AM CDT): -Pt with worsening bilateral back and lateral hip/thigh pain x 1 month and has tenderness to palpation in this areas on exam. No focal neurologic deficits. Symptoms correlate with initiation of denosumab/Xgeva and suspect presentation represents denosumab related MSK pain as this is a common side effect of this medication. She does have known mets at least the R paraspinal area s/p radiation and possible other vertebral bony mets, however do not have high suspicion for cord compression at this time and do not think that an urgent MRI is needed. Pt is prescribed Dilaudid 4mg Q4H PRN, however has not been taking as she does not want opiates to limit her daily activities. -Obtain last imaging records from [facility] -Scheduled APAP 1g TID, cont meloxicam 15mg daily to help limit opiate use. Not taking gabapentin due to sedation although willing to try reduced dose of gabapentin 100 QHS. Cont Dilaudid 4mg PO Q4 PRN. -Of note, if imaging needed in the future, pt reports an allergy to MRI and CT contrast dye that requires pre-treatment Scalp mass 04/28/2019 11/02/2020 Assessment & Plan (04/28/2019 1:33 AM CDT): -Subcutanous mass of L posterior scalp which could represent and cyst vs metastatic disease -Obtain OSH records prior to proceeding with any further imaging Metastases to the liver 07/24/201608/13 Assessment & Plan (11/14/2019 3:35 PM CDT): Currently on Sandostatin and Xgeva. Her last MRI of the abdomen which was done on October 30 showed stable size and number of metastasis in the liver. Assessment & Plan (08/22/2019 12:10 PM ERGONOMIST): -Followed by Dr. Granados -known liver and bone mets -s/p chemoembolization of right and left hepatic arteries in July 2016 and August 2016 with doxorubicin. -Current treatment with Monthly Sandostatin 30 mg (started 2016) intramuscular injections and Xgeva every 3 months. -Oncology consults Assessment & Plan (05/11/2019 2:13 PM CDT): Currently on Sandostatin and Xgeva. Will be establishing with [facility] Immunizations Immunization Administration Dates Next Due Influenza, Quadrivalent, Rec ombinant, Egg Free, Preservative Free, Intramuscular 04/03/2019,07/20/2018 Influenza, Quadrivalent, Spl it, Preservative Free, Intramuscular 04/30/2022,04/29/2021,09/11/2020(Defer red: Other - given at 911),09/11/2020,03/31/2016 Influenza, Trivalent, Split, Preservative Free, Intradermal 04/28/2017,03/31/2016 Influenza, Unspecified 04/16/2023(Deferr ed: Patient Refused),06/03/2020(Deferred: Patient Refused),05/03/2020(Deferred: Patient Refused),04/11/2019(Deferred: Patient Refused) Pfizer SARS-CoV-2 Monovalent Vaccination (12+ Yrs) ALBARADO-READY TO USE 08/08/2021 Pfizer SARS-CoV-2 Monovalent Vaccination (12+ Yrs) PURPLE 11/20/2020,10/30/2020 Pneumococcal Conjugate PCV 13 09/01/2021 Pneumococcal Polysaccharide PPV23 07/20/2018 Tdap 05/20/2017 Social History Tobacco Use Types Packs/Day Years Used Date Smoking Tobacco: Every Day Cigarettes 0.5 45 Smokeless Tobacco: Never Tobacco Cessation:Ready to Q uit: No; Counseling Given: Yes Comments:1/2 pack a day Smoking cessation booklet provided Alcohol Use Standard Drinks/Week Comments Not Currently 0 (1 standard drink = 0.6 oz pur e alcohol) casual Social Connection and Isolat ion Panel [NHANES] Answer Date Recorded In a typical week, how many times do you talk on the phone with family, friends, or neighbors? More than three times a week 04/14/2023 How often do you get togethe r with friends or relatives? More than three times a week 04/14/2023 How often do you attend chur ch or advent services? More than 4 times per year 04/14/2023 Do you belong to any clubs o r organizations such as oriental orthodox groups, unions, fraternal or athletic groups, or school groups? No 04/14/2023 How often do you attend meet ings of the clubs or organizations you belong to? Never 04/14/2023 Are you , , di vorced, , never , or living with a partner? Never 04/14/2023 AUDIT-C Answer Date Recorded Frequency of Alcohol Consumption Not on file 08/17/2023 Q2: How many drinks containi ng alcohol do you have on a typical day when you are drinking? Patient does not drink Frequency of Binge Drinking Not on file 12/2023 Overall Financial Resource Strain (CARDIA) Answe r Date Recorded How hard is it for you to pa y for the very basics like food, housing, medical care, and heating? Not very hard 04/14/2023 PHQ-2 Answer Date Recorded PHQ-2 Total Score (If total score is 3 or more points, staff should administer the PHQ-9) 0 04/16/2023 Hunger Vital Sign Answer Date Recorded Within the past 12 months, y ou worried that your food would run out before you got the money to buy more. Never true 04/12/20 23 Within the past 12 months, t he food you bought just didn't last and you didn't have money to get more. Never true 04/12/2023 PRAPARE - Transportation Answer Date Re corded In the past 12 months, has l ack of transportation kept you from medical appointments or from getting medications? No 10/2022 In the past 12 months, has l ack of transportation kept you from meetings, work, or from getting things needed for daily living? No 04/14/2023 Housing Stability Vital Sign Answer Oscar e Recorded In the last 12 months, was t here a time when you were not able to pay the mortgage or rent on time? No 04/14/2023 In the last 12 months, how many places have you lived? 1 04/14/2023 In the last 12 months, was t here a time when you did not have a steady place to sleep or slept in a custodial (including now)? No 04/14/2023 Personal Safety Answer Date Recorded Have you ever been in or are you currently in a harmful physical or emotional relationship or is someone making you feel afraid or unsafe? Denies 09/19/2024 Comments No Sex and Gender Information Value Date Recorded Sex Assigned at Not on file Legal Sex Female 7:39 AM ERGONOMIST Gender Identity Not on file Sexual Orientation Not on file Occupation Industry Job Start Date Job End Date Disabled Not on file Not on file Not on file Last Filed Vital Signs Vital Sign Reading Time Taken Comments Blood Pressure 121/64 09/19/2024 9:30 PM CDT Pulse 75 09/19/2024 9:30 PM CDT Temperature 36.7 C (98.1 F) 09/19/2024 3:34 PM CDT Respiratory Rate 18 09/19/2024 9:30 PM CDT Oxygen Saturation 100% 09/19/2024 9:30 PM CDT Inhaled Oxygen Concentration - - Weight 94.3 kg (208 lb) 09/19/2024 3:34 PM CDT Height 163.8 cm (5' 4.5) 08/25/2023 6:42 AM ERGONOMIST Body Mass Index 35.15 08/25/2023 6:42 AM ERGONOMIST Plan of Treatment Not on file Goals Goal Patient Goal Type Associated Problems Recent Progress Patient-Stated? Author CCM Chronic Pain Care Plan Chronic Care Management No Autumn Weston, RN Note: Problem: Chronic Pain Goals: 1. Minimize further functional decline 2. Maximize quality of life 3. Control pain Strategies: - Activity/exercise program recommendation - Conservative stepwise pain medicine strategy with multi-disciplinary approach - Recommend healthy lifestyle strategies and compensatory methods as needed Medical Devices Implanted Type Area Local Area Network Administrator Device Identifier Shelf Expiration Date Model / Serial / Lot Azur Embolization Coil-04/03/2018 Implanted:2017 (Quantity not on file) Right: Renal [employer] 8780 Ascenda 4fr .5mm 114cm 86cm 2 Piece Connector Pin Flexible Closed - [id number] Implanted:Qty: 1 on 09/19/2020 by Norman Sun MD at [facility] N/A: Back [employer] Inc 07/16/2022 [id number] / / [id number] Medtronic Neuro [id number] Synchromed Ii [place] Catheter Access Port Suture Loop [id number] - [id number] - [id number] Implanted:Qty: 1 on 09/19/2020 by Norman Sun MD at [facility] N/A: Back [employer] Inc 12/23/2021 [id number] / [id number] / [employer] Ascenda 2 Attached Collet Catheter Connector [place] [employer] [id number] - [id number] Implanted:Qty: 1 on 08/25/2023 by Norman uSn MD at [facility] N/A: Back [employer] 12/04/2024 [id number] / / [id number] Med[employer] Inc Ascenda 4fr .5mm 114cm 86cm 2 Piece Connector Pin Flexible Closed [id number] - [id number] Implanted:Qty: 1 on 08/25/2023 by Norman Sun MD at [facility] N/A: Back [employer] 06/30/2025 [id number] / / [id number] Medtronic Inc Tyrx 3.35x3in Large Envelope Absorbable Polyarylate Minocycline [id number] - [id number] Implanted:Qty: 1 on 08/25/2023 by Norman Sun MD at [facility] N/A: Back [employer] [id number] 04/14/2024 [id number] / / [id number] Procedures Procedure Name Priority Date/Time Associated Diagnosis Comments EGFR Routine 08/17/2023 9:46 AM ERGONOMIST Pre-op testing HEMOGLOBIN A1C Routine 04/03/2023 10:59 AM CDT SCREENING MAMMOGRAM BILATERAL W DARRELL Schedule Routine, Read Routine (OP Routine) 01/14/2023 10:24 AM CDT Screening mammogram, encounter for ALBUMIN CREATININE RATIO, URINE Routine 11/17/2022 7:55 AM CDT Fatigue, unspecified type Type 2 diabetes mellitus with polyneuropathy (HCC) Hx of thyroid nodule LIPID PANEL Routine 08/26/2022 12:43 PM ERGONOMIST Type 2 diabetes mellitus with diabetic polyneuropathy, with long-term current use of insulin (HCC) Tobacco abuse disorder HM DIABETES EYE EXAM Routine 02/19/2022 PAP ONLY Routine 06/20/2020 9:29 AM ERGONOMIST HEPATITIS C ANTIBODY Routine 05/03/2020 10:58 AM CDT Need for hepatitis C screening test from Last 3 Months or Most Recently Relevant to Health Maintenance Results * eGFR (08/17/2023 9:46 AM ERGONOMIST) eGFR 42 mL/min/1. 73 m2 JOSIAH GELLER Comment: Interpretive Data Reference Interval Normal >/= 90 mL/min/1.73m2 Mildly decreased* 60 - 89 mL/min/1.73m2 Mildly to moderately decreased 45 - 59 mL/min/1.73m2 Moderately to severely decreased 30 - 44 mL/min/1.73m2 Severely decreased 15 - 29 mL/min/1.73m2 Kidney Failure < 15 mL/min/1.73m2 *Relative to young adult level Estimated glomerular filtration rate is determined by the 2020 CKD-EPI equation recommended by the National Kidney Foundation (A Unifying Approach to GFR Estimation: Recommendations of the NKF-ASK Task Force on Reassessing the Inclusion of Race in Diagnosing Kidney Disease, JASN 202). The CKD-EPI equation should not be used for patients with unstable renal function and has not been validated in children and those over 70. Current interpretive data was last reviewed 2021. Blood 08/17/2023 9:46 AM ERGONOMIST 08/17/2023 9:51 AM ERGONOMIST us Nitin Hernandez NP LAB BLOOD ORDERABLES Final Result JOSIAH GELLER [id number] Department [place] [address] * (ABNORMAL) Hemoglobin A1c (04/03/2023 10:59 AM CDT) Hgb A1C 7.3(H) 4.0 - 5.6 % JOSIAH GELLER Estimated Average Glucose 163 mg/dL JOSIAH GELLER Comment: The ADA recommends reporting an estimated Average Glucose (eAG) with all Hemoglobin A1c results using the equation derived from a study of 507 normal and diabetic adults. Minority populations were underrepresented and children were not included. (Diabetes Care 31:7355-6246, 2008). The eAG is not equivalent to a fasting glucose. Blood 04/03/2023 10:5 9 AM CDT 04/03/2023 12:00 PM CDT Kiersten Jeffers NP LAB BLOOD ORDERABLES Final Result JOSIAH GELLER [address] [facility] [place] [address] * Screening Mammogram Bilateral W Darrell (01/14/2023 10:24 AM CDT) Anatomical Region Laterality Modality Breast Bilateral Mammography 01/14/2023 10:5 5 AM CDT Impressions 01/14/2023 10:55 AM CDT There is no mammographic evidence of malignancy. A 1 year screening mammogram is recommended. BI-RADS: 2 - Benign. The patient has been or will be contacted. The patient will be entered into a reminder system with a target due date of 1 year for her next mammogram. Electronically signed by: Mario Veras M.D. Narrative 01/14/2023 10:55 AM CDT EXAMINATION: SCREENING MAMMOGRAM BILATERAL W DARRELL ORDERING HEALTHCARE PROVIDER: SELF SCREENING MAMMOGRAM HISTORY: Routine screening mammography. COMPARISON: 11/17/2021, 05/06/2021, 07/19/2015 TECHNIQUE: CC and MLO views of the bilateral breasts were obtained with digital technique using breast tomosynthesis with C view. Computer aided detection was utilized. FINDINGS: DENSITY: There are scattered fibroglandular elements in the bilateral breasts. BREASTS: There is no suspicious change in benign-appearing calcifications and masses bilaterally. There are no suspicious masses, suspicious calcifications, or other suspicious findings in either breast. There has been no suspicious interval change. us Self Screening Mammogram IMG MAMMO PROCEDURES Fi nal Result * (ABNORMAL) Albumin Creatinine Ratio, Urine (11/17/2022 7:55 AM CDT) Albumin Ur 83.1 mg/L JOSIAH AM H ([place]) Comment: Interpretive Data No reference range established. Current interpretive data was last revised 2018. Testing performed by: [address] [address] Creatinine Ur 120.7 mg/dL JOSIAH RODRIGUEZ ([place]) Comment: Interpretive Data No reference range established. Current interpretive data was last revised 2018. Testing performed by: [address] [address] Albumin Creatinine Ratio, Ur 69(H) 1 - 29 mg/g JOSIAH RODRIGUEZ ([place]) Comment:Testing performed by : [address], [address] Urine 11/17/2022 7:55 AM CDT 11/17/2022 6:46 PM CDT Narrative JOSIAH RODRIGUEZ ([place]) - 11/17/2022 8:04 PM CDT Non fasting us Annalee Donovan NP LAB URINE ORDERABLES Final Res ult JOSIAH RODRIGUEZ ([place]) 1 [facility] Department [place] [address] * (ABNORMAL) Lipid panel (08/26/2022 12:43 PM ERGONOMIST) Cholesterol 202(H) 30 - 199 mg/dL JOSIAH GELLER Comment: Interpretive Data Ages < or = 19 years Acceptable: <170 mg/dL Borderline high: 170-199 mg/dL High: >or= 200 mg/dL Ages > or = 20 years Desirable: <200 mg/dL Borderline high: 200-239 mg/dL High: >or= 240 mg/dL Literature References: 1. Expert Panel on Integrated Guidelines for Cardiovascular Health and Risk Reduction in Children and Adolescents. Pediatrics 2011;128:S213 2. NCEP Expert Panel. Circulation 2004;110:227 Current Interpretive Data was last revised on 2018. Testing performed by: [facility], [address] [place] [address] Triglycerides 191(H) <=149 mg/dL CERNER Comment: Interpretive Data Ages < or = 9 years Acceptable: <75 mg/dL Borderline high: 75-99 mg/dL High: >or= 100 mg/dL Ages 10 to 20 years Acceptable: <90 mg/dL Borderline high: 90-129 mg/dL High: >or= 130 mg/dL Ages > or = 20 years Desirable: <150 mg/dL Borderline high: 150-199 mg/dL High: 200-499 mg/dL Very high: >or= 499 mg/dL Literature References: 1. Expert Panel on Integrated Guidelines for Cardiovascular Health and Risk Reduction in Children and Adolescents. Pediatrics 2011;128:S213 2. NCEP Expert Panel. Circulation 2004;110:227 Current Interpretive Data was last revised on 2018. Testing performed by: [facility], [address] [place] [address] HDL 49 >=40 mg/dL [facility] Comment: Interpretive Data Ages < or = 19 years Acceptable: >45 mg/dL Borderline low: 40-45 mg/dL Low: <40 mg/dL Ages > or = 20 years Desirable: >or= 60 mg/dL Low: <40 mg/dL Literature References: 1. Expert Panel on Integrated Guidelines for Cardiovascular Health and Risk Reduction in Children and Adolescents. Pediatrics 2011;128:S213 2. NCEP Expert Panel. Circulation 2004;110:227 Current Interpretive Data was last revised on 2018. Testing performed by: [facility], [address] [place] [address] LDL, calculated 115 <=129 mg/dL [facility] Comment: Interpretive Data Ages < or = 19 years Acceptable: <110 mg/dL Borderline high: 110-129 mg/dL High: >or= 130 mg/dL Ages > or = 20 years Optimal: <100 mg/dL Near optimal: 100-129 mg/dL Borderline high: 130-159 mg/dL High: >160 mg/dL Literature References: 1. Expert Panel on Integrated Guidelines for Cardiovascular Health and Risk Reduction in Children and Adolescents. Pediatrics 2011;128:S213 2. NCEP Expert Panel. Circulation 2004;110:227 Current Interpretive Data was last revised on 2018. Testing performed by: [facility], [place] [address] Non-HDL Cholesterol 153 mg/dL JOSIAH GELLER Comment: Interpretive Data Ages < or = 19 years Acceptable: <120 mg/dL Borderline high: 120-144 mg/dL High: >145 mg/dL Ages > or = 20 years When triglycerides are >200 mg/dL, Non-HDL cholesterol is a secondary target of therapy with treatment goals that are 30 mg/dL greater than the LDL cholesterol target. Literature References: 1. Expert Panel on Integrated Guidelines for Cardiovascular Health and Risk Reduction in Children and Adolescents. Pediatrics 2011;128:S213 2. NCEP Expert Panel. Circulation 2004;110:227 Current Interpretive Data was last revised on 2018. Testing performed by: [facility], [place] [address] Chol/HDL ratio 4 JOSIAH GELLER Comment:Testing performed by : [facility], [place] [address] Blood 08/26/2022 12:4 3 PM ERGONOMIST 08/26/2022 12:43 PM ERGONOMIST Brigida Ocasio NP LAB BLOOD ORDERABLES Fi nal Result JOSIAH [address] Department [place] [address] * DIABETES EYE EXAM (02/19/2022) SCRIBED DIABETIC DILATED EYE EXAM Normal 02/19/2022 Historical Provider MD HEALTH MAINTENANCE Final Result * Pap Only (06/20/2020 9:29 AM ERGONOMIST) CLINICAL INFORMATION: Heather Mcelroy Comment:CERVICAL CANCER SCRE ENING LMP [facility] Comment:INFORMATION NOT PROV IDED Previous Pap [facility] Comment:INFORMATION NOT PROV IDED Prev. Bx Heather VelásquezJulianeIsaiah Mcelroy Comment:INFORMATION NOT PROV IDED SOURCE: Heather VelásquezJulianeIsaiah Mcelroy Comment:Vagina Pap, specimen adequacy Heather VelásquezJulianeIsaiah goldstein Navi Comment:SATISFACTORY FOR DULCE MARIA LUATION HPV interp Heather VelásquezJulianeIsaiah goldstein Navi Comment:Negative for intraep ithelial lesion or malignancy. Medical Accountant Quan st VelásquezMalcolm Mcelroy Comment: BKA, CT(ASCP) CT screening location: [place] [address] [address] [place] [address] Comment Heather VelásquezMalcolm Mcelroy Comment: EXPLANATORY NOTE: The Pap is a screening test for cervical cancer. It is not a diagnostic test and is subject to false negative and false positive results. It is most reliable when a satisfactory sample, regularly obtained, is submitted with relevant clinical findings and history, and when the Pap result is evaluated along with historic and current clinical information. 06/20/2020 9:29 AM ERGONOMIST 2020 8:18 AM ERGONOMIST Inocencia Altman MISCELLANEOUS MACHINE OPERATOR LAB CYTOLOGY ORDERABLES Final Re sult [place] [address] [place] [address] * Hepatitis C antibody (05/03/2020 10:58 AM CDT) Hep C Ab Nonreactive Nonreactive JOSIAH RODRIGUEZ ([place]) Comment: Interpretive Data Nonreactive: Antibodies to HCV not detected. Does NOT exclude the possibility of recent exposure to HCV. Equivocal: Equivocal for HCV antibodies. Supplemental molecular testing will be automatically performed to determine infection status in accordance with current CDC screening recommendations. Reactive: Positive for HCV antibodies. This may represent current or past HCV infection. Supplemental molecular testing will be automatically performed to determine current infection status in accordance with current CDC screening recommendations. Interpretive data was last revised on 2019. Testing performed by: [facility], [address] [place] [address], [place]., [address] Blood specimen (specimen) 05/03/2020 10:58 AM CDT 05/03/2020 3:57 PM CDT Nestor Antunez MD LAB MICROBIOLOGY - GENE RAL ORDERABLES Final Result [facility] ([place]) 1 [facility] [place] [address] from Last 3 Months or Most Recently Relevant to Health Maintenance Insurance [facility] MEDICARE HMO [facility] MEDICARE HMO [facility] MEDICARE HMO Advance Directives For more information, please contact: [phone] Documents on File Type Date Recorded Patient Academic Assistant Expl anation ADVANCE DIRECTIVE 04/12/2023 3:03 PM Power of Respiratory Care Program Director-Medical * Full Code (Latest Code Status on File) Date Activated Date Inactivated Comments 04/10/2023 2:57 AM 04/13/2023 5:14 PM * Full Code Date Activated Date Inactivated Comments 04/02/2023 4:07 PM 04/06/2023 7:01 PM * Full Code Date Activated Date Inactivated Comments 09/10/2020 6:06 PM 09/13/2020 8:31 PM * Full Code Date Activated Date Inactivated Comments 08/22/2019 2:29 AM 08/22/2019 6:50 PM * Full Code Date Activated Date Inactivated Comments 04/28/2019 12:20 AM 04/28/2019 8:09 PM Care Teams Community Ambassador Relationship Specialty Start Date End Date Jimi Rosario MD Medical Oncologist/Low Heel Builder Hematology and Oncology 08/28/22
--- OUTSIDE RECORDS SUMMARY | 2025-01-14 15:26 | XMS_ITS | Encounter Summary ---
Author Organization [facility] Address [address] [place] [address] Care Team Providers Care Risk Analyst Name Role Phone Jennifer Mccoy RN Unavailable [phone] Carine Watson MD Unavailable Fany Archuleta ROOM SERVICE MANAGER-TRANSMITTER ENGINEER Unavailable [phone] Ondina Brannon WINDSHIELD WIPER REPAIRER Unavailable Jimmie Hampton MD Unavailable Sebastian Perez MD Primary Care Provider Sebastian [place] MD Primary Care Provider Sebastian [place] MD Unavailable Unavailable Reason for Visit * Reason Onset Date Comments MEDICATION REFILL 01/27/2018 Encounter Details Date Type Department Care Team (Late st Contact Info) Description 01/27/2018 Refill [facility] [address] [place] [address] Tay Valdes, ROOM SERVICE MANAGER-TRANSMITTER ENGINEER [address] [place] [address] MEDICATION REFILL Social History Tobacco Use Types Packs/Day Years Used Date Smoking Tobacco: Light Smoker Cigarettes Smokeless Tobacco: Never Comments:social smoker only Alcohol Use Standard Drinks/Week Comments No 0 (1 standard drink = 0.6 oz pur e alcohol) Comments No Sex and Gender Information Value Date Recorded Sex Assigned at Not on file Legal Sex Female 5:10 AM COMPUTING MACHINE OPERATOR Gender Identity Not on file Sexual Orientation Not on file Occupation Industry Job Start Date Job End Date Disabled Not on file Not on file Not on file documented as of this encounter Functional Status * Is person deaf or have serious hearing difficulty? Answer Date of Assessment Author No 01/04/2018 9:13 AM Chantal Cifuentes RN * Is person blind or have serious difficulty seeing? Answer Date of Assessment Author No 01/04/2018 9:13 AM Chantal Cifuentes RN * Does person have serious difficulty walking/climbing stairs? Answer Date of Assessment Author No 01/04/2018 9:13 AM Chantal Cifuentes RN * Does person have difficulty dressing/bathing? Answer Date of Assessment Author No 01/04/2018 9:13 AM Chantal Cifuentes RN * Does person have difficulty doing errands alone? Answer Date of Assessment Author No 01/04/2018 9:13 AM Chantal Cifuentes RN documented as of this encounter Mental Status * Does person have difficulty concentrating/remembering/making decisions? Answer Entry Date Author No 01/04/2018 9:13 AM Chantal Cifuentes RN documented in this encounter Plan of Treatment Not on file documented as of this encounter Visit Diagnoses Not on filedocumented in this encounter Care Teams Risk Analyst Relationship Specialty [place] [address] [place] [address] PCP - General Family Medicine 06/10/18 8 [place] [address] [place] [address] PCP - [facility] Medicine 07/19/18 11/10/20 Sebastian Perez MD per [id number] PCP - Attributed-MSSP 08/12/19 Jennifer Mccoy, RN Smoking Tobacco Packing Machine Hand 03/31/16 Carine Watson MD [facility] [address] [place] [address] [id number] Oncology 04/09/16 07/19/18 Fany Archuleta, ROOM SERVICE MANAGER-TRANSMITTER ENGINEER [address] [place] [address] [place] [address] Nurse Practitioner Nurse Practitioner 04/09/16 Ondina Brannon, WINDSHIELD WIPER REPAIRER [place] Pin Game Machine Inspector 07/31/16 [place] [address] [facility] [address] [place] [id number] Press Setup Operator Rheumatology 05/31/17 documented as of this encounter
--- OUTSIDE RECORDS SUMMARY | 2025-01-14 15:26 | XMS_ITS | Encounter Summary ---
Author Organization [facility] Address [address] [place] [address] Care Team Providers Care Audio/Visual Manager Name Role Phone Jennifer Mccoy RN Unavailable [phone] Carine Watson MD Unavailable Fany Archuleta APRN-KNIFE CUTTER Unavailable [phone] Salud Ondina ANIMAL HANDLER Unavailable Jimmie Hampton MD Unavailable Sebastian Perez MD Primary Care Provider Sebastian [place] MD Primary Care Provider Sebastian [place] MD Unavailable Unavailable Encounter Details Date Type Department Care Team (Late st Contact Info) Description 03/11/2017 [facility] Outpatient Visit [facility] [address] [place] [address] Tobi Espinoza MD [address] [address] Social History Tobacco Use Types Packs/Day Years Used Date Smoking Tobacco: Some Days Cigarettes Smokeless Tobacco: Never Comments:social smoker only Alcohol Use Standard Drinks/Week Comments No 0 (1 standard drink = 0.6 oz pur e alcohol) Comments No Sex and Gender Information Value Date Recorded Sex Assigned at Not on file Legal Sex Female 5:10 AM AIRCRAFT ENGINE MECHANIC SUPERVISOR Gender Identity Not on file Sexual Orientation Not on file documented as of this encounter Functional Status * Is person deaf or have serious hearing difficulty? Answer Date of Assessment Author No 07/31/2016 1:35 AM AIRCRAFT ENGINE MECHANIC SUPERVISOR [place], Be th, STREETS AND BUILDINGS DECORATOR-KNIFE CUTTER * Is person blind or have serious difficulty seeing? Answer Date of Assessment Author No 07/31/2016 1:35 AM AIRCRAFT ENGINE MECHANIC SUPERVISOR [place], Be th, STREETS AND BUILDINGS DECORATOR-KNIFE CUTTER * Does person have serious difficulty walking/climbing stairs? Answer Date of Assessment Author No 07/31/2016 1:35 AM AIRCRAFT ENGINE MECHANIC SUPERVISOR [place], Be th, STREETS AND BUILDINGS DECORATOR-KNIFE CUTTER * Does person have difficulty dressing/bathing? Answer Date of Assessment Author No 07/31/2016 1:35 AM AIRCRAFT ENGINE MECHANIC SUPERVISOR [place], Be th, STREETS AND BUILDINGS DECORATOR-KNIFE CUTTER * Does person have difficulty doing errands alone? Answer Date of Assessment Author No 07/31/2016 1:35 AM AIRCRAFT ENGINE MECHANIC SUPERVISOR [place], Be th, STREETS AND BUILDINGS DECORATOR-KNIFE CUTTER documented as of this encounter Mental Status * Does person have difficulty concentrating/remembering/making decisions? Answer Entry Date Author No 07/31/2016 1:35 AM AIRCRAFT ENGINE MECHANIC SUPERVISOR [place], Be th, STREETS AND BUILDINGS DECORATOR-KNIFE CUTTER documented in this encounter Plan of Treatment Not on file documented as of this encounter Visit Diagnoses Not on filedocumented in this encounter Care Teams Audio/Visual Manager Relationship Specialty [place] [address] [place] [address] PCP - General Family Medicine 06/10/18 8 [place] [address] [place] [address] PCP - General Family Medicine 07/19/18 11/10/20 Sebastian Perez MD per [id number] PCP - Attributed-[facility] 08/12/19 Jennifer Mccoy RN Head Of Loss Prevention 03/31/16 Carine Watson MD [address] [facility] [address] [place] [address] Oncology 04/09/16 07/19/18 Fany Archuleta APRN-KNIFE CUTTER [address] [place] [address] [address] [place] [address] Nurse Practitioner Nurse Practitioner 04/09/16 Ondina Brannon MSW [place] Sewer Cleaner 07/31/16 [place] [address] [facility] [address] [place] [address] Medical Billing Representative Rheumatology 05/31/17 documented as of this encounter
--- OUTSIDE RECORDS SUMMARY | 2025-01-14 15:26 | XMS_ITS | Encounter Summary ---
Author Organization [facility] Address [address] [place] [address] Care Team Providers Care Boot Maker Name Role Phone Nestor Antunez MD Primary Care Provider Inocencia Altman COIL MACHINE OPERATOR Unavailable Efrem Mcdaniels MD Unavailable [phone] Unknown, Notinfile Primary Care Provider Unavail able Nestor Antunez MD Primary Care Provider Lauren Manley RN Unavailable [phone] Brigida Ocasio COIL MACHINE OPERATOR Primary Care Provider Jimi Rosario MD Unavailable [phone] Jean Marie Valerio MD Primary Care Provider Annalee Donovan COIL MACHINE OPERATOR Primary Care Provider [phone] Ariella Carr RN Unavailable Soni Osman LCSW Unavailable [phone] Antonio Rendon MD Primary Care Provider [phone] Annalee Donovan COIL MACHINE OPERATOR Primary Care Provider [phone] Encounter Details Date Type Department Care Team (Late st Contact Info) Description 09/04/2020 Telephone [facility] [address] [place] [address] Mel Freitas, RT Social History Tobacco Use Types Packs/Day Years Used Date Smoking Tobacco: Every Day Cigarettes 0.5 45 Smokeless Tobacco: Never Alcohol Use Standard Drinks/Week Comments Not Currently 0 (1 standard drink = 0.6 oz pur e alcohol) casual PHQ-2 Answer Date Recorded PHQ-2 Total Score (If total score is 3 or more points, staff should administer the PHQ-9) 0 09/03/2020 Comments No Sex and Gender Information Value Date Recorded Sex Assigned at Not on file Legal Sex Female 7:39 AM MACHINE STRAW HAT PRESSER Gender Identity Not on file Sexual Orientation Not on file Occupation Industry Job Start Date Job End Date Disabled Not on file Not on file Not on file documented as of this encounter Plan of Treatment Not on file documented as of this encounter Goals Goal Patient Goal Type Associated Problems [...] lifestyle strategies and compensatory methods as needed documented as of this encounter Visit Diagnoses Not on filedocumented in this encounter Additional Health Concerns Infection Onset Date Last Indicated Resolved Time COVID: Suspected 02/25/2022 02/25/2022 02/25/2022 4:31 PM CDT COVID: Suspected 04/09/2023 04/09/2023 04/09/2023 9:58 PM CDT documented as of this encounter Care Teams Boot Maker Relationship Specialty Start Date End Date Nestor Antunez MD PCP - General Family Medicine 05/03/20 09/10/20 Unknown, Notinfile PCP - General 09/11/20 09/12/20 Nestor Antunez MD PCP - General 09/13/20 10/21/20 Brigida Ocasio, RASHAWN [address] [facility] [address] [place] [address] PCP - General Family Medicine 10/22/20 10/18/22 Jean Marie Valerio MD [address] [facility] [address] [place] [address] PCP - General Internal Medicine 10/19/22 10/28/22 Annalee Donovan, RASHAWN [address] [facility] [address] [facility] [place] [address] PCP - General Nurse Practitioner 10/29/22 06/13/23 Antonio Rendon MD [address] [facility] [address] [address] PCP - General Family Medicine 06/14/23 06/15/23 Annalee Donovan, RASHAWN [address] [facility] [address] [address] [address] PCP - General Internal Medicine 06/16/23 10/31/24 Inocencia Altman NP [address] [facility] [address] [address] Obstetrics and Gynecology 05/03/20 10/18/22 Efrem Mcdaniels MD [address] [facility] [address] [place] [address] Consulting Physician Medical Oncology 08/19/20 10/18/22 Lauren Manley, RN [address] [place] [address] [address] [place] [address] Poultry Packer 3/8/21 4/6/21 Jimi Rosario MD [facility] [facility] [address] [address] Medical Oncologist/Baggage Inspector Hematology and Oncology 08/28/22 Ariella Carr RN [address] [place] [address] [address] [place], [place] [id number] Poultry Packer 04/07/23 05/04/23 Soni Osman, SELECTOR PACKER [address] [facility] [address] [place] [address] Commercial Real Estate Attorney 04/12/23 04/13/23 documented as of this encounter
--- OUTSIDE RECORDS SUMMARY | 2025-01-14 15:26 | XMS_ITS | Encounter Summary ---
Author Organization [facility] Address [address] [place] [address] Care Team Providers Care College Director Name Role Phone London Jackson MD Primary Care Provider + Nestor Antunez MD Primary Care Provider Inocencia Altman HOPS FARMWORKER Unavailable Nazanin Granados MD Unavailable Efrem Mcdaniels MD Unavailable Unknown, Notinfile Primary Care Provider Unavail able Nestor Antunez MD Primary Care Provider Lauren Manley RN Unavailable Brigida Ocasio HOPS FARMWORKER Primary Care Provider Jimi Rosario MD Unavailable [phone] Jean Marie Valerio MD Primary Care Provider Annalee Donovan HOPS FARMWORKER Primary Care Provider [phone] Ariella Carr RN Unavailable Soni Osman LCSW Unavailable Antonio Rendon MD Primary Care Provider [phone] Annalee Donovan HOPS FARMWORKER Primary Care Provider [phone] Reason for Visit * Reason Onset Date Comments Prior Auth 09/15/2019 Lidocaine 5% Pat ch Encounter Details Date Type Department Care Team (Late st Contact Info) Description 09/15/2019 Telephone [facility] [address] [facility] Advanced [facility] [address] [place] [address] Enrrique Vanegas MD [address] [place] [address] Prior Auth (Lidocaine 5% Patch) Social History Tobacco Use Types Packs/Day Years Used Date Smoking Tobacco: Every Day Cigarettes 0.5 45 Smokeless Tobacco: Never Alcohol Use Standard Drinks/Week Comments Not Currently 0 (1 standard drink = 0.6 oz pur e alcohol) Comments No Sex and Gender Information Value Date Recorded Sex Assigned at Not on file Legal Sex Female 7:39 AM CLASS B DRIVER Gender Identity Not on file Sexual Orientation [...] meets criteria for isolation discontinuation. Molly Turner Black 01/31/2020 01/30/2020 01/30/2020 01/31/2020 12:25 PM CDT COVID: Suspected 02/25/2022 02/25/2022 02/25/2022 4:31 PM CDT COVID: Suspected 04/09/2023 04/09/2023 04/09/2023 9:58 PM CDT documented as of this encounter Care Teams College Director Relationship Specialty Start Date End Date London Jackson MD [address] [place] [address] PCP - General Internal Medicine 05/12/19 05/02/20 Nestor Antunez MD [address] [place] [address] PCP - General Family Medicine 05/03/20 09/10/20 Unknown, Notinfile PCP - General 09/11/20 09/12/20 Nestor Antunez MD [address] [place] [address] PCP - General 09/13/20 10/21/20 Brigida Ocasio, RASHAWN [address] [place], [place] [address], [place] [address] PCP - General Family Medicine 10/22/20 10/18/22 Jean Marie Valerio MD [address] [place] [address] [address] [place] [address] PCP - General Internal Medicine 10/19/22 10/28/22 Annalee Donovan, HOPS FARMWORKER [address] [place] [address] [address] [place], [place] [address], [place] [address] PCP - General Nurse Practitioner 10/29/22 06/13/23 Antonio Rendon MD [address] [facility] [address] [address] PCP - General Family Medicine 06/14/23 06/15/23 Annalee Donovan, HOPS FARMWORKER [address] [facility] [address] [address] PCP - General Internal Medicine 06/16/23 10/31/24 Inocencia Altman, HOPS FARMWORKER [address] [place] [address] [address] [address] Obstetrics and Gynecology 05/03/20 10/18/22 Nazanin Granados MD [address] [place] [address] [address] [address] Medical Oncologist/Optics Manufacturing Technician Medical Oncology 05/03/20 08/18/20 Efrem Mcdaniels MD [address] [facility] [address] [place], [place] [id number] Consulting Physician Medical Oncology 08/19/20 10/18/22 Lauren Manley RN [address] [place] [address] [address] [place] [address] Groundsman 09/16/20 10/15/20 Jimi Rosario MD [address] [place] [address], [place] [address] Medical Oncologist/Optics Manufacturing Technician Hematology and Oncology 08/28/22 Ariella Carr RN [address] [place] [address] [address] [place] [address] Groundsman 04/07/23 05/04/23 Soni Osman LCSW [address] [place] [address] [address] [place] [address] Automobile Body Customizer 04/12/23 04/13/23 documented as of this encounter
--- OUTSIDE RECORDS SUMMARY | 2025-01-14 15:26 | XMS_ITS | Encounter Summary ---
Author Organization [facility] Address [address] [place] [address] Care Team Providers Care Certified Alcohol Drug Counselor Name Role Phone London Jackson MD Primary Care Provider + Nestor Antunez MD Primary Care Provider Inocencia Altman HAND ROUTER OPERATOR Unavailable Nazanin Granados MD Unavailable Efrem Mcdaniels MD Unavailable Unknown, Notinfile Primary Care Provider Unavail able Nestor Antunez MD Primary Care Provider Lauren aMnley RN Unavailable [phone] Brigida Ocasio HAND ROUTER OPERATOR Primary Care Provider Jimi Rosario MD Unavailable [phone] Jean Marie Valerio MD Primary Care Provider Annalee Donovan HAND ROUTER OPERATOR Primary Care Provider Ariella Carr RN Unavailable Soni Osman LCSW Unavailable Antonio Rendon MD Primary Care Provider [phone] Annalee Donovan HAND ROUTER OPERATOR Primary Care Provider Encounter Details Date Type Department Care Team (Late st Contact Info) Description 09/01/2019 Telephone [facility] at the 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 Molly A Fox 01/31/2020 01/30/2020 01/30/2020 01/31/2020 12:25 PM CDT COVID: Suspected 02/25/2022 02/25/2022 02/25/2022 4:31 PM CDT COVID: Suspected 04/09/2023 04/09/2023 04/09/2023 9:58 PM CDT documented as of this encounter Care Teams Certified Alcohol Drug Counselor Relationship Specialty Start Date End Date London Jackson MD [address] [place] [address] PCP - General Internal Medicine 05/12/19 05/02/20 Nestor Antunez MD [address] [place] [address] PCP - General Family Medicine 05/03/20 09/10/20 Unknown, Notinfile PCP - General 09/11/20 09/12/20 Nestor Antunez MD [address] [place] [address] PCP - General 09/13/20 10/21/20 Brigida Ocasio, RASHAWN [address] [place] [address] [address], [place] [address] PCP - General Family Medicine 10/22/20 10/18/22 Jean Marie Valerio MD [address] [facility] [facility] [address] [place] [address] PCP - General Internal Medicine 10/19/22 10/28/22 Annalee Donovan, HAND ROUTER OPERATOR [address] [facility] [facility] [address] [place] [address] PCP - General Nurse Practitioner 10/29/22 06/13/23 Antonio Rendon MD [address] [facility] [address] [address] PCP - General Family Medicine 06/14/23 06/15/23 Annalee Donovan NP [address] [facility] [address] [address] [address] PCP - General Internal Medicine 06/16/23 10/31/24 Inocencia Altman, HAND ROUTER OPERATOR [address] [place] [address] [address] [address] Obstetrics and Gynecology 05/03/20 10/18/22 Nazanin Granados MD [address] [place] [address] [address] [place] [address] Medical Oncologist/Laborer [employer] Medical Oncology 05/03/20 08/18/20 Efrem Mcdaniels MD [address] [facility] [address] [place], [place] [id number] Consulting Physician Medical Oncology 08/19/20 10/18/22 Lauren Manley RN [address] [place] [address] [address] [place], [place] [id number] Medical Staff Physician 09/16/20 10/15/20 Jimi Rosario MD [address] [facility] [address], [place] [address] Medical Oncologist/Laborer [employer] Hematology and Oncology 08/28/22 Ariella Carr RN [address] [place] [address] [address] [place] [address] Medical Staff Physician 04/07/23 05/04/23 Soni Osman, METAL CASTER [address] [place] [address] [address] [place] [address] Extract Wringer 04/12/23 04/13/23 documented as of this encounter
--- OUTSIDE RECORDS SUMMARY | 2025-01-14 15:26 | XMS_ITS | Encounter Summary ---
Author Organization [facility] Address [address] [place] [address] Phone Care Team Providers Care Milled Rice Broker Name Role Phone Osito Hong APRN, AMMONIUM SULFATE OPERATOR Primary Care Pr ovider Sahil Iyer MD Unavailable [phone] Kael Angela MD Unavailable Ana Maria Esparza Unavailable Unavaila Alex Fischer MD Unavailable [phone] Kirill Gil MD Unavailable Encounter Details Date Type Department Care Team (Late st Contact Info) Description 06/13/2024 Tumor Board [facility] Medical Group - General Surgery [facility] #[address] [address] Kael Angela MD #[address] [address] Social History Tobacco Use Types Packs/Day Years Used Date Smoking Tobacco: Every Day Cigarettes Smokeless Tobacco: Never Alcohol Use Standard Drinks/Week Comments Not Currently 0 (1 standard drink = 0.6 oz pur e alcohol) Rare [facility] Utilities Answer Date Recorded In the [...] 03/29/2024 How often do you attend chur or muslim services? More than 4 times per year 03/29/2024 Do you belong to any clubs o r organizations such as alevism groups, unions, fraternal or athletic groups, or [...] medical care, and heating? Somewhat hard 03/29/2024 [facility] [place] of Occupat ional Health - Occupational Stress [...] any time in the past 12 m [facility], were you homeless or living in a fdc (including now)? No 03/29/2024 Comments No Sex and Gender Information Value Date Recorded Sex Assigned at Not on file Legal Sex Female 4:44 PM CDT Gender Identity Female 05/27/2023 6:50 AM WASH AND GREASER Sexual Orientation Not on file documented as of this encounter Plan of Treatment Upcoming Encounters Date Type Department Care Team (Latest Contact Info) Description 01/24/2025 10:30 AM CDT Clinical Support [facility] Oncology Services [address] [place] [address] Sahil Iyer MD [address] [place] [address] Discharge Disposition: Discharged to home or Selfcare 02/12/2025 10:00 AM CDT Office Visit [facility] Medical Group - Endocrinology - [place] [address] [place] [address] Kirill Gil MD #[address] [address] 02/21/2025 10:30 AM CDT Clinical Support [facility] Oncology Services [address] [place] [address] Sahil Iyer MD [address] [place] [address] Discharge Disposition: Discharged to home or Selfcare 03/01/2025 9:00 AM CDT [facility] [address] [place] [address] Sahil Iyer MD [address] [place] [address] Discharge Disposition: Discharged to home or Selfcare 03/26/2025 10:45 AM CDT Office Visit [facility] Medical [facility] - Family [facility] #[address] [place] [address] Osito Hong APRN, AMMONIUM SULFATE OPERATOR #[address] [address] 04/03/2025 9:00 AM CDT Office Visit [facility] Oncology Services [address] [place] [address] Alex Ahumada MD [address] [place] [address] Discharge Disposition: Discharged to home or Selfcare documented as of this encounter Visit Diagnoses Not on filedocumented in this encounter Care Teams Milled Rice Broker Relationship Specialty Start Date End Date Osito Hong APRN, AMMONIUM SULFATE OPERATOR #[address] [address] PCP - General Advanced Practice Nurse 12/31/23 Sahil Iyer MD [address] [place] [address] Consulting Physician Medical Oncology 05/31/23 aKel Angela MD #[address] [address] Consulting Physician General Surgery 05/30/24 Ana Maria Esparza, [facility] Patient Navigator 06/26/24 07/17/24 Alex Ahumada MD [address] [place] [address] Consulting Physician Radiation Oncology 07/26/24 Kirill Gil MD #[address] [address] Consulting Physician Endocrinology 11/07/24 documented as of this encounter
--- OUTSIDE RECORDS SUMMARY | 2025-01-14 15:26 | XMS_ITS | Encounter Summary ---
Author Organization [facility] Address [address] [place] [address] Phone Care Team Providers Care Metal Weigher Name Role Phone Osito Hong APRN, CNP Primary Care Pr ovider Sahil Iyer MD Unavailable [phone] Kael Angela MD Unavailable [phone] Ana Maria Esparza RMA Unavailable Unavaila ble Alex Ahumada MD Unavailable [phone] Kirill Gil MD Unavailable Reason for Referral * Radiology Services (Routine) - Closed Specialty Diagnoses / Procedures Referred By Contac t Referred To Contact Radiology Diagnoses Abnormal mammogram of left breast Procedures [facility] US GUIDANCE AND CORE BREAST BIOPSY LEFT Osito Hong APRN, UNDERGROUND TRUCK OPERATOR #[address] [address] Phone: tel: fax: Referral ID Status Reason Start Date Expiration Date Visits Re quested Visits Authorized [id number] Closed 05/08/2024 1 1 Encounter Details Date Type Department Care Team (Late st Contact Info) Description 05/08/2024 [facility] [address] [place] [address] Osito Hong, TASHA, UNDERGROUND TRUCK OPERATOR #2 [facility] [address] [place] [address] Abnormal mammogram of left breast (Primary Dx) Social History Tobacco Use Types Packs/Day Years Used Date Smoking Tobacco: Every Day Cigarettes Smokeless Tobacco: Never Alcohol Use Standard Drinks/Week Comments Not Currently 0 (1 standard drink = 0.6 oz pur e alcohol) Rare [facility] Utilities Answer Date Recorded In the past 12 months has th e electric, gas, oil, or water [employer] threatened to shut off services in your [...] week 03/29/2024 How often do you attend [facility] ch or anabaptism services? More than 4 times per year 03/29/2024 Do you belong to any clubs o r organizations such as religion groups, unions, fraternal or athletic groups, or [...] medical care, and heating? Somewhat hard 03/29/2024 [facility] of Occupat ional Health - Occupational Stress [...] any time in the past 12 m [facility], were you homeless or living in a detention (including now)? No 03/29/2024 Comments No Sex and Gender Information Value Date Recorded Sex Assigned at Not on file Legal Sex Female 4:44 PM CDT Gender Identity Female 05/27/2023 6:50 AM OTR TRUCK DRIVER Sexual Orientation Not on file documented as of this encounter Progress Notes * Osito Hong APRN, JARRETT - 05/08/2024 7:58 AM CDT Signed, thanks! documented in this encounter Plan of Treatment Upcoming Encounters Date Type Department Care Team (Latest Contact Info) Description 01/24/2025 10:30 AM CDT Clinical Support [facility] Oncology Services [address] [place] [address] Sahil Iyer MD [address] [place] [address] Discharge Disposition: Discharged to home or Selfcare 02/12/2025 10:00 AM CDT Office Visit [facility] - Endocrinology - [place] #[address] [place] [address] Kirill Gil MD #[address] [address] 02/21/2025 10:30 AM CDT Clinical Support [facility] Oncology Services [address] [place] [address] Sahil Iyer MD [address] [place] [address] Discharge Disposition: Discharged to home or Selfcare 03/01/2025 9:00 AM CDT Office Visit [facility] Oncology Services [address] [place] [address] Sahil Iyer MD [address] [place] [address] Discharge Disposition: Discharged to home or Selfcare 03/26/2025 10:45 AM CDT Office Visit [facility] Medical Group - Family Medicine - [place] [address] [place] [address] Osito Hong APRN, UNDERGROUND TRUCK OPERATOR #[address] [address] 04/03/2025 9:00 AM CDT Office Visit [facility] Oncology Services [address] [place] [address] Alex Ahumada MD [address] [place] [address] Discharge Disposition: Discharged to home or Selfcare documented as of this encounter Results * [facility] US GUIDANCE AND CORE BREAST BIOPSY LEFT (05/16/2024 1:28 PM OTR TRUCK DRIVER) Anatomical Region Laterality Modality breast Left Ultrasound 05/16/2024 2:00 PM OTR TRUCK DRIVER Addenda Addendum by Mario Veras MD on 05/24/2024 9:40 AM OTR TRUCK DRIVER ADDENDUM REPORT: ADDENDUM: This addendum report supersedes the original report dated 05/16/2024. 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 This finding is malignant and concordant with the imaging findings. Recommend surgical and oncology consultations. As described in the procedure report above, the biopsy marking clip position is discordant from the focal asymmetry on diagnostic evaluation from 05/05/2024. Stereotactic/tomosynthesis guided biopsy of this focal asymmetry is recommended. I discussed these findings and recommendations with AUBREY Ray in the office of Dr. Osito Hong at 9:31 a.m. on 05/24/2024. END OF ADDENDUM REPORT EXAM DESCRIPTION: [facility] DIAG LEFT UNILATERAL DIGITAL WO CAD; [facility] US GUIDANCE AND CORE BREAST BIOPSY LEFT REASON FOR STUDY: Suspicious left breast mass. COMPARISON: 01/14/2023, 03/30/2024, 05/05/2024 BREAST COMPOSITION: There are scattered areas of fibroglandular density. TECHNIQUE: The procedure was discussed with the patient and the patient agreed to proceed. The patient was scanned and the area of interest in the 12 o'clock position 7 cm from the nipple of the left breast was localized. This correlates with the area of concern on prior imaging studies. This area was targeted for ultrasound-guided core biopsy. After sterile skin prep and 6 cc local lidocaine 1% for skin and deep tissue anesthesia, a 14 gauge core biopsy needle was used to obtain several cores of tissue from the lesion. Needle placement was documented with sonographic images. Under ultrasound guidance, a ribbon clip was placed in the areas sampled. There were no immediate post-procedure complications. MAMMOGRAM: Post-procedure two view mammogram was acquired in the digital mammogram suite. The clip projects 1 cm anterior to the mammographic MLO view asymmetry on diagnostic evaluation from 05/05/2024 and projects approximately 1.5 cm lateral to the suspected CC correlate on diagnostic evaluation from 05/05/2024. No significant hematoma. FINDINGS: Ultrasound guided breast biopsy as described above. IMPRESSION: Ultrasound-guided core biopsy of the suspicious left breast sonographic mass. Please note position of the biopsy clip relative to the mammographic asymmetry seen on diagnostic evaluation from 05/05/2024, as detailed above. Pathology is pending. An addendum with recommendations will be issued when results are available.. THIS IS AN ELECTRONICALLY VERIFIED FINAL REPORT 05/16/2024 2:00 PM - Electronically signed by Mario Veras M.D. MZ: JACKSON Report ID: [id number] Reading Location: [id number] THIS IS AN ELECTRONICALLY VERIFIED FINAL REPORT 05/24/2024 9:38 AM Addendum Electronically signed by Mario Veras M.D. MZ: MZ Report ID: [id number] Reading Location: [id number] Impressions 05/16/2024 2:03 PM OTR TRUCK DRIVER IMPRESSION: Ultrasound-guided core biopsy of the suspicious left breast sonographic mass. Please note position of the biopsy clip relative to the mammographic asymmetry seen on diagnostic evaluation from 05/05/2024, as detailed above. Pathology is pending. An addendum with recommendations will be issued when results are available.. Narrative 05/16/2024 2:03 PM OTR TRUCK DRIVER EXAM DESCRIPTION: [facility] DIAG LEFT UNILATERAL DIGITAL WO CAD; [facility] US GUIDANCE AND CORE BREAST BIOPSY LEFT REASON FOR STUDY: Suspicious left breast mass. COMPARISON: 01/14/2023, 03/30/2024, 05/05/2024 BREAST COMPOSITION: There are scattered areas of fibroglandular density. TECHNIQUE: The procedure was discussed with the patient and the patient agreed to proceed. The patient was scanned and the area of interest in the 12 o'clock position 7 cm from the nipple of the left breast was localized. This correlates with the area of concern on prior imaging studies. This area was targeted for ultrasound-guided core biopsy. After sterile skin prep and 6 cc local lidocaine 1% for skin and deep tissue anesthesia, a 14 gauge core biopsy needle was used to obtain several cores of tissue from the lesion. Needle placement was documented with sonographic images. Under ultrasound guidance, a ribbon clip was placed in the areas sampled. There were no immediate post-procedure complications. MAMMOGRAM: Post-procedure two view mammogram was acquired in the digital mammogram suite. The clip projects 1 cm anterior to the mammographic MLO view asymmetry on diagnostic evaluation from 05/05/2024 and projects approximately 1.5 cm lateral to the suspected CC correlate on diagnostic evaluation from 05/05/2024. No significant hematoma. FINDINGS: Ultrasound guided breast biopsy as described above. THIS IS AN ELECTRONICALLY VERIFIED FINAL REPORT 05/16/2024 2:00 PM - Electronically signed by Mario Veras M.D. MZ: JACKSON Report ID: [id number] Reading Location: [id number] Procedure Note Mario Veras MD - 05/16/2024 EXAM DESCRIPTION: [facility] DIAG LEFT UNILATERAL DIGITAL WO CAD; [facility] US GUIDANCE AND CORE BREAST BIOPSY LEFT REASON FOR STUDY: Suspicious left breast mass. COMPARISON: 01/14/2023, 03/30/2024, 05/05/2024 BREAST COMPOSITION: There are scattered areas of fibroglandular density. TECHNIQUE: The procedure was discussed with the patient and the patient agreed to proceed. The patient was scanned and the area of interest in the 12 o'clock position 7 cm from the nipple of the left breast was localized. This correlates with the area of concern on prior imaging studies. This area was targeted for ultrasound-guided core biopsy. After sterile skin prep and 6 cc local lidocaine 1% for skin and deep tissue anesthesia, a 14 gauge core biopsy needle was used to obtain several cores of tissue from the lesion. Needle placement was documented with sonographic images. Under ultrasound guidance, a ribbon clip was placed in the areas sampled. There were no immediate post-procedure complications. MAMMOGRAM: Post-procedure two view mammogram was acquired in the digital mammogram suite. The clip projects 1 cm anterior to the mammographic MLO view asymmetry on diagnostic evaluation from 05/05/2024 and projects approximately 1.5 cm lateral to the suspected CC correlate on diagnostic evaluation from 05/05/2024. No significant hematoma. FINDINGS: Ultrasound guided breast biopsy as described above. THIS IS AN ELECTRONICALLY VERIFIED FINAL REPORT 05/16/2024 2:00 PM - Electronically signed by Mario Veras M.D. MZ: JACKSON Report ID: [id number] Reading Location: [id number] IMPRESSION: Ultrasound-guided core biopsy of the suspicious left breast sonographic mass. Please note position of the biopsy clip relative to the mammographic asymmetry seen on diagnostic evaluation from 05/05/2024, as detailed above. Pathology is pending. An addendum with recommendations will be issued when results are available.. Osito Hong APRN, CNP IM MAMMO ORDERA BLES Edited Result - Final documented in this encounter Visit Diagnoses Diagnosis Abnormal mammogram of left breast- Primary Abnormal mammogram of left breast documented in this encounter Care Teams Metal Weigher Relationship Specialty Start Date End Date Osito Hong APRN, CNP #[address] [address] PCP - General Advanced Practice Nurse 12/31/23 Sahil Iyer MD [address] [place] [address] Consulting Physician Medical Oncology 05/31/23 Kael Angela MD #2 [facility] [address] [place] [address] Consulting Physician General Surgery 05/30/24 Ana Maria Esparza, [facility] Patient Navigator 06/26/24 07/17/24 Alex Ahumada MD [address] [place] [address] Consulting Physician Radiation Oncology 07/26/24 Kirill Gil MD #[address] [address] Consulting Physician Endocrinology 11/07/24 documented as of this encounter
--- OUTSIDE RECORDS SUMMARY | 2025-01-14 15:26 | XMS_ITS | Encounter Summary ---
Author Organization [facility] Address [address] [place] [address] Phone Care Team Providers Care Quirk Sander Name Role Phone Osito Hong APRN, JARRETT Primary Care Pr ovider Sahil Iyer MD Unavailable [phone] Kael Angela MD Unavailable [phone] Ana Maria Esparza Unavailable Unavaila Alex Fischer MD Unavailable [phone] Kirill Gil MD Unavailable Encounter Details Date Type Department Care Team (Late st Contact Info) Description 05/30/2024 [facility] Oncologists [address] [place] [address] Sahil Iyer MD [address] [place], [place] [id number] Social History Tobacco Use Types Packs/Day Years Used Date Smoking Tobacco: Every Day Cigarettes Smokeless Tobacco: Never Alcohol Use Standard Drinks/Week Comments Not Currently 0 (1 standard drink = 0.6 oz pur e alcohol) Rare [facility] Utilities Answer Date Recorded In the past [...] often do you attend chur ch or rastafarian services? More than 4 times per year 03/29/2024 Do you belong to any clubs o r organizations such as evangelical groups, unions, fraternal or athletic groups, or [...] medical care, and heating? Somewhat hard 03/29/2024 [facility] of Occupat ional Health - Occupational Stress [...] were you homeless or living in a fpc (including now)? 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 Sexual Orientation Not on file documented as of this encounter Plan of Treatment Upcoming Encounters Date Type Department Care Team (Latest Contact Info) Description 01/24/2025 10:30 AM CDT Clinical Support [facility] Oncology Services [address] [place] [address] Sahil Iyer MD [address] [place] [address] Discharge Disposition: Discharged to home or Selfcare 02/12/2025 10:00 AM CDT Office Visit [facility] Medical Group - Endocrinology [facility] #2 [place] [address] Kirill Gil MD #[address] [address] 02/21/2025 10:30 AM CDT Clinical Support [facility] Oncology Services [address] [place] [address] Sahil Iyer MD [address] [place] [address] Discharge Disposition: Discharged to home or Selfcare 03/01/2025 9:00 AM CDT [facility] [address] [place] [address] Sahil Iyer MD [address] [place] [address] Discharge Disposition: Discharged to home or Selfcare 03/26/2025 10:45 AM CDT Office Visit [facility] Medical [facility] - Family [facility] #2 [place] [address] Osito Hong APRN, CAR DISPATCHER #[address] [address] 04/03/2025 9:00 AM CDT Office Visit [facility] Oncology Services [address] [place] [address] Alex Ahumada MD [address] [place] [address] Discharge Disposition: Discharged to home or Selfcare documented as of this encounter Visit Diagnoses Not on filedocumented in this encounter Care Teams Quirk Sander Relationship Specialty Start Date End Date Osito Hong APRN, CAR DISPATCHER #[address] [address] PCP - General Advanced Practice Nurse 12/31/23 Sahil Iyer MD [address] [place] [address] Consulting Physician Medical Oncology 05/31/23 Kael Angela MD #[address] [address] Consulting Physician General Surgery 05/30/24 Ana Maria Esparza [facility] Patient Navigator 06/26/24 07/17/24 Alex Ahumada MD [address] [place] [address] Consulting Physician Radiation Oncology 07/26/24 Kirill Gil MD #[address] [address] Consulting Physician Endocrinology 11/07/24 documented as of this encounter
--- OUTSIDE RECORDS SUMMARY | 2025-01-14 15:26 | XMS_ITS | Encounter Summary ---
Author Organization Formerly [facility] Address [address] [place] [address] Care Team Providers Care Service Engineer Name Role Phone London Jackson MD Primary Care Provider + Nestor Antunez MD Primary Care Provider Inocencia Altman WHEEL OF FORTUNE DEALER Unavailable Nazanin Granados MD Unavailable Efrem Mcdaniels MD Unavailable Unknown, Notinfile Primary Care Provider Unavail able Nestor Antunez MD Primary Care Provider Lauren Manley RN Unavailable [phone] Brigida Ocasio WHEEL OF FORTUNE DEALER Primary Care Provider Jimi Rosario MD Unavailable [phone] Jean Marie Valerio MD Primary Care Provider Annalee Donovan WHEEL OF FORTUNE DEALER Primary Care Provider [phone] Ariella Carr RN Unavailable Soni Osman LCSW Unavailable [phone] Antonio Rendon MD Primary Care Provider [phone] Annalee Donovan WHEEL OF FORTUNE DEALER Primary Care Provider Encounter Details Date Type Department Care Team (Late st Contact Info) Description 10/30/2019 Telephone [facility] [address] [place], [place] [id number] Nazanin Granados MD [address] [address] Social History Tobacco Use Types Packs/Day Years Used Date Smoking Tobacco: Every Day Cigarettes 0.5 45 Smokeless Tobacco: Never Alcohol Use Standard Drinks/Week Comments Not Currently 0 (1 standard drink = 0.6 oz pur e alcohol) Comments No Sex and Gender Information Value Date Recorded Sex Assigned at Not on file Legal Sex Female 7:39 AM [employer] Gender Identity Not on file Sexual Orientation Not on file COVID-19 Exposure Response Date Recorded In the last month, have you been in contact with someone who was confirmed or suspected to have Coronavirus / COVID-19? No / Unsure 10/10/2019 11:48 AM CDT documented as of this encounter Plan of [...] Patient meets criteria for isolation discontinuation. Molly Cleaning 01/31/2020 01/30/2020 01/30/2020 01/31/2020 12:25 PM CDT COVID: Suspected 02/25/2022 02/25/2022 02/25/2022 4:31 PM CDT COVID: Suspected 04/09/2023 04/09/2023 04/09/2023 9:58 PM CDT documented as of this encounter Care Teams Service Engineer Relationship Specialty Start Date End Date London Jackson MD [address] [place] [address] PCP - General Internal Medicine 05/12/19 05/02/20 Nestor Antunez MD [address] [place] [address] PCP - General Family Medicine 05/03/20 09/10/20 Unknown, Notinfile PCP - General 09/11/20 09/12/20 Nestor Antunez MD [address] [place] [address] PCP - General 09/13/20 10/21/20 Brigida Ocasio, RASHAWN [address] [place] [address] PCP - General Family Medicine 10/22/20 10/18/22 Jean Marie Valerio MD [address] [place] [address] [address] [place] [address] PCP - General Internal Medicine 10/19/22 10/28/22 Annalee Donovan NP [address] [place] [address] [address] [place] [address] PCP - General Nurse Practitioner 10/29/22 06/13/23 Antonio Rendon MD [address] [facility] [address] [address] PCP - General Family Medicine 06/14/23 06/15/23 Annalee Donovan NP 2 [facility] [address] [place] [address] PCP - General Internal Medicine 06/16/23 10/31/24 Inocencia Altman, WHEEL OF FORTUNE DEALER [address] [place] [address] [address] [address] Obstetrics and Gynecology 05/03/20 10/18/22 Nazanin Granados MD [address] [place] [address] [place] [address] Medical Oncologist/Pie Filling Mixer Medical Oncology 05/03/20 08/18/20 Efrem Mcdaniels MD [address] [facility] [address] [place] [address] Consulting Physician Medical Oncology 08/19/20 10/18/22 Lauren Manley RN [address] [place] [address] [address] [place] [address] Anthropometrist 09/16/20 10/15/20 Jimi Rosario MD [address] [place] [address] [address], [place] [address] Medical Oncologist/Pie Filling Mixer Hematology and Oncology 08/28/22 Ariella Carr, AUBREY [address] [place] [address] [address] [place] [address] Anthropometrist 04/07/23 05/04/23 Soni Osman LCSW [address] [place] [address] [address] [place] [address] Dairy Machine Operator Farmworker 04/12/23 04/13/23 documented as of this encounter
--- OUTSIDE RECORDS SUMMARY | 2025-01-14 15:26 | XMS_ITS ---
Author Organization [facility] Address [address] [place] [address] Care Team Providers Care Associate Director Of Sales Name Role Phone Jimi Rosario MD Unavailable [phone] Active Problems Problem Noted Date Diagnosed Date [...] injection with steroids that was performed at [facility] Intractable low back pain 04/10/2023 Sacroiliitis 03/02/2023 [...] documentation by ER and attending providers at [facility], labs, MRI imaging, and X-ray imaging during patient stay on 04/02/2023 through 04/06/2023 at [facility]. Follow up as scheduled with me sooner prn Medications reviewed and reconciled this visit Will continue to monitor lab values as they are scanned in to me from her Oncology orders. Assessment & Plan (12/17/2022 11:46 AM CDT): I personally reviewed patient H&P documentation from her ER visit to [facility] on 12/10/2022 for severe back pain exacerbation. [...] up with ENT as scheduled and with bakery worker conveyor line for hearing screening Impacted cerumen of right [...] bid Assessment & Plan (09/08/2022 1:16 PM ENGINE WATCHMAN): Controlled. Continue current regimen. Assessment & Plan [...] 11/02/2020 Assessment & Plan (09/07/2021 9:40 PM ENGINE WATCHMAN): Con't to follow-up with endocrinology. Labs as [...] with oncology. Reports moving to care to [facility]. As needed place referral. Assessment & Plan (09/07/2021 9:39 PM ENGINE WATCHMAN): Con't to follow-up with oncology-Dr. Mcdaniels. Assessment [...] direction Assessment & Plan (09/08/2022 1:17 PM ENGINE WATCHMAN): Con't to follow-up with oncology-. Has infusion [...] see if he has any option to public relations assistant moving it forward. Assessment & Plan (05/03/2020 [...] OSH records from [facility] in [place], [place] -Has oncology follow up in 3 [...] 100/25.. Assessment & Plan (09/08/2022 1:58 PM ENGINE WATCHMAN): Elevated today. Has not taken PRN clonidine. [...] 140/90. Assessment & Plan (09/07/2021 9:42 PM ENGINE WATCHMAN): Labs today. Continue current nifedipine 60 mg [...] goal. Assessment & Plan (09/08/2020 4:50 PM ENGINE WATCHMAN): - not adequately controlled - clonidine 0.1mg [...] daily Assessment & Plan (08/12/2020 12:25 PM ENGINE WATCHMAN): Elevated in office today, patient in pain. Will stay at current dose but monitor BP at home. Assessment & Plan (06/03/2020 11:13 AM ENGINE WATCHMAN): - well controlled with current medication - [...] nifedipine Assessment & Plan (08/22/2019 12:03 PM ENGINE WATCHMAN): - home nifedipine and hctz Assessment & Plan (08/22/2019 1:16 AM ENGINE WATCHMAN): - home nifedipine and hctz Assessment & [...] diet. Assessment & Plan (09/08/2022 1:19 PM ENGINE WATCHMAN): Denies any concerns at this time. Has [...] b.i.d.. Assessment & Plan (09/07/2021 9:41 PM ENGINE WATCHMAN): Labs today. Continue current metformin 500 mg [...] exam. Assessment & Plan (09/08/2020 4:44 PM ENGINE WATCHMAN): - improved control - A1c is 6.9 [...] 80-100 Assessment & Plan (06/03/2020 11:11 AM ENGINE WATCHMAN): - A1c is 8.1 - currently on [...] day Assessment & Plan (08/22/2019 12:01 PM ENGINE WATCHMAN): - NPH 15 BID + lispro 8 with meals. - hold metformin - except temporary hyperglycemia due to prednisone with pre medication Assessment & Plan (08/22/2019 1:16 AM ENGINE WATCHMAN): - NPH 15 BID + lispro 8 [...] cessation. Assessment & Plan (09/07/2021 9:42 PM ENGINE WATCHMAN): Controlled. Continue current regimen of intermittent DILAN. [...] Plan (03/20/2022 11:23 AM CDT): Referral to [facility]. PET Scan was to be scheduled, but pt determined to change providers. Order in place. New back pain and CT finding. Assessment & Plan (11/02/2020 10:17 AM CDT): Con't to f/u w/ Dr. Mcdaniels as well as Dr. Ferguson for management. At this time, energy level is acceptable and pain is controlled. Current Treatment and Therapy Plans No current plan information found. Past Treatment and Therapy Plans Oncology Chemotherapy Treatment Plan Name Start Date Discontinue Date Treatment Medications Discontinue Reason Plan Provider Cycles Octreotide 28 Day Cycles - Carcinoid 2 05/10/2023 octreotide (SandoSTATIN LAR)octreotide LAR (SandoSTATIN LAR) Patient Preference Jimi Rosario MD 15 of 17 cycles started Octreotide 28 Day Cycles - Carcinoid 9 03/26/2022 octreotide (SandoSTATIN LAR)octreotide LAR (SandoSTATIN LAR) Patient Preference Efrem Mcdaniels MD 37 of 43 cycles started Specialty Infusion Treatment Plan Name Start Date Discontinue Date Treatment Medications Discontinue Reason Plan Provider Denosumab (XGEVA) Injection 04/06/2022 05/10/2023 No medications scheduled. Patient Preference Jimi Rosario MD Denosumab (XGEVA) Injection 05/16/2019 03/26/2022 No medications scheduled. Patient Preference Efrem Mcdaniels MD Lifetime Dose Tracking * Chemical Lifetime Dose Automatic Entry Manual Entr y Fluoro Time 11.79 minutes 11.79 minutes 0 minutes Air kerma at the reference point (Ka,r) 304.843 mGy 3 04.843 mGy 0 mGy DLP 3,874 mGycm 3,874 mGycm 0 mGycm Resolved Problems Problem Noted Date Diagnosed Date Resolved Date Acute pain of right shoulder 06/23/2021 04/30/2022 Abnormal mammogram of left breast 12/24/2020 04/30/2022 Assessment & Plan (12/24/2020 1:14 PM CDT): Reviewed dx results from her mammogram. L breast with some cystic like. She is declining to see breast-copay concerns-would like to repeat. Advised to have completed prior to . Rib pain on right side 08/12/202010/22 Right hip pain 08/12/2020 11/02/2020 Class 2 severe obesity due t o excess calories with serious comorbidity and body mass index (BMI) of 37.0 to 37.9 in adult 06/03/2020 Assessment & Plan (09/08/2020 4:32 PM ENGINE WATCHMAN): Wt Readings from Last 3 Encounters: 09/03/20 99.5 kg (219 lb 6.4 oz) 08/22/20 100.9 kg (222 lb 6.4 oz) 08/13/20 101 kg (222 lb 10.6 oz) Body mass index is 37.46 kg/m . - some weight loss noted - BMI Follow-up includes: nutrition counseling, exercise counseling and education provided Assessment & Plan (06/03/2020 9:47 AM ENGINE WATCHMAN): - BMI Follow-up includes: nutrition counseling, exercise counseling and education provided Current every day cannabis vapor product user 05/03/20 20 05/16/2021 Assessment & Plan (11/02/2020 10:20 AM CDT): [...] 10/22/2020 Assessment & Plan (08/22/2019 12:06 PM ENGINE WATCHMAN): - MRI with T8/9 metastatic disease (however [...] prior. Assessment & Plan (08/22/2019 1:14 AM ENGINE WATCHMAN): - MRI with T8/9 metastatic disease (however patient has had prior kyphoplasty) which does not actually correlate with location of back pain. - no neuro deficits, per patient pain significantly improved with lidocaine patch, will continue. Also continue dilaudid PO with morphine IV for breakthrough pain - awaiting final MRI read Leucocytosis 08/22/2019 11/02/2020 Assessment & Plan (08/22/2019 12:52 PM ENGINE WATCHMAN): -WBC 16.3-> likely secondary to Prednisone Myalgia [...] liver. Assessment & Plan (08/22/2019 12:10 PM ENGINE WATCHMAN): -Followed by Dr. Granados -known liver and bone mets -s/p chemoembolization of right and left hepatic arteries in July 2016 and August 2016 with doxorubicin. -Current treatment with Monthly Sandostatin 30 mg (started 2016) intramuscular injections and Xgeva every 3 months. -Oncology consults Assessment & Plan (05/11/2019 2:13 PM CDT): Currently on Sandostatin and Xgeva. Will be establishing with [facility]
--- OUTSIDE RECORDS SUMMARY | 2025-01-14 15:26 | XMS_ITS | Clinical Summary ---
Author Organization [facility] Address [address] [place] [address] Care Team Providers Care Sponge Buffer Name Role Phone Jimi Rosario MD Unavailable [phone] Allergies Active Allergy Reactions Criticality Noted Date [...] Itching High 04/28/2018 Penicillins Rash Medium 04/26/2011 Auhstyr-Bvm-Dkm Reductase Inhibitors Muscle pain Medium 10/22/2020 Vancomycin [...] CAT scan 1 capsule 1 Active omega 5-bbs-nuo-fish oil 1,200 (144-216) mg capsule Take 1 [...] hours as needed for wheezing Active multivit bztzmdnd-wvjj-X A-calcium (THERA-M) 9 mg iron-400 mcg tabletIndicatio [...] [place] with [place] [facility] [place] pain 04/10/2023 Sacroiliitis 03/02/2023 [...] documentation by ER and attending providers at [facility], labs, MRI imaging, and X-ray imaging during patient stay on 04/02/2023 through 04/06/2023 at [facility]. Follow up as scheduled with me sooner prn Medications reviewed and reconciled this visit Will continue to monitor lab values as they are scanned in to me from her Oncology orders. Assessment & Plan (12/17/2022 11:46 AM CDT): I personally reviewed patient H&P documentation from her ER visit to [facility] on 12/10/2022 for severe back pain [...] up with ENT as scheduled and with coroner's juror for hearing screening Impacted cerumen of right [...] bid Assessment & Plan (09/08/2022 1:16 PM LIBRARIAN SPECIAL LIBRARY): Controlled. Continue current regimen. Assessment & Plan [...] 11/02/2020 Assessment & Plan (09/07/2021 9:40 PM LIBRARIAN SPECIAL LIBRARY): Con't to follow-up with endocrinology. Labs as [...] with oncology. Reports moving to care to [facility]. As needed place referral. Assessment & Plan (09/07/2021 9:39 PM LIBRARIAN SPECIAL LIBRARY): Con't to follow-up with oncology-Dr. Mcdaniels. Assessment [...] direction Assessment & Plan (09/08/2022 1:17 PM LIBRARIAN SPECIAL LIBRARY): Con't to follow-up with oncology-. Has infusion [...] see if he has any option to production scheduler moving it forward. Assessment & Plan [...] OSH records from [facility] in [place], [place] -Has oncology follow up in 3 [...] 100/25.. Assessment & Plan (09/08/2022 1:58 PM LIBRARIAN SPECIAL LIBRARY): Elevated today. Has not taken PRN clonidine. [...] 140/90. Assessment & Plan (09/07/2021 9:42 PM LIBRARIAN SPECIAL LIBRARY): Labs today. Continue current nifedipine 60 mg [...] goal. Assessment & Plan (09/08/2020 4:50 PM LIBRARIAN SPECIAL LIBRARY): - not adequately controlled - clonidine 0.1mg [...] daily Assessment & Plan (08/12/2020 12:25 PM LIBRARIAN SPECIAL LIBRARY): Elevated in office today, patient in pain. Will stay at current dose but monitor BP at home. Assessment & Plan (06/03/2020 11:13 AM LIBRARIAN SPECIAL LIBRARY): - well controlled with current medication - [...] nifedipine Assessment & Plan (08/22/2019 12:03 PM LIBRARIAN SPECIAL LIBRARY): - home nifedipine and hctz Assessment & Plan (08/22/2019 1:16 AM LIBRARIAN SPECIAL LIBRARY): - home nifedipine and hctz Assessment & [...] diet. Assessment & Plan (09/08/2022 1:19 PM LIBRARIAN SPECIAL LIBRARY): Denies any concerns at this time. Has [...] b.i.d.. Assessment & Plan (09/07/2021 9:41 PM LIBRARIAN SPECIAL LIBRARY): Labs today. Continue current metformin 500 mg [...] exam. Assessment & Plan (09/08/2020 4:44 PM LIBRARIAN SPECIAL LIBRARY): - improved control - A1c is 6.9 [...] 80-100 Assessment & Plan (06/03/2020 11:11 AM LIBRARIAN SPECIAL LIBRARY): - A1c is 8.1 - currently on [...] day Assessment & Plan (08/22/2019 12:01 PM LIBRARIAN SPECIAL LIBRARY): - NPH 15 BID + lispro 8 with meals. - hold metformin - except temporary hyperglycemia due to prednisone with pre medication Assessment & Plan (08/22/2019 1:16 AM LIBRARIAN SPECIAL LIBRARY): - NPH 15 BID + lispro 8 [...] cessation. Assessment & Plan (09/07/2021 9:42 PM LIBRARIAN SPECIAL LIBRARY): Controlled. Continue current regimen of intermittent DILAN. [...] Plan (03/20/2022 11:23 AM CDT): [facility]. PET Scan was to be scheduled, [...] 06/03/2020 Assessment & Plan (09/08/2020 4:32 PM LIBRARIAN SPECIAL LIBRARY): Wt Readings from Last 3 Encounters: 09/03/20 99.5 kg (219 lb 6.4 oz) 08/22/20 100.9 kg (222 lb 6.4 oz) 08/13/20 101 kg (222 lb 10.6 oz) Body mass index is 37.46 kg/m . - some weight loss noted - BMI Follow-up includes: nutrition counseling, exercise counseling and education provided Assessment & Plan (06/03/2020 9:47 AM LIBRARIAN SPECIAL LIBRARY): - BMI Follow-up includes: nutrition counseling, exercise [...] 10/22/2020 Assessment & Plan (08/22/2019 12:06 PM LIBRARIAN SPECIAL LIBRARY): - MRI with T8/9 metastatic disease (however [...] prior. Assessment & Plan (08/22/2019 1:14 AM LIBRARIAN SPECIAL LIBRARY): - MRI with T8/9 metastatic disease (however patient has had prior kyphoplasty) which does not actually correlate with location of back pain. - no neuro deficits, per patient pain significantly improved with lidocaine patch, will continue. Also continue dilaudid PO with morphine IV for breakthrough pain - awaiting final MRI read Leucocytosis 08/22/2019 11/02/2020 Assessment & Plan (08/22/2019 12:52 PM LIBRARIAN SPECIAL LIBRARY): -WBC 16.3-> likely secondary to Prednisone Myalgia [...] liver. Assessment & Plan (08/22/2019 12:10 PM LIBRARIAN SPECIAL LIBRARY): -Followed by Dr. Granados -known liver and bone mets -s/p chemoembolization of right and left hepatic arteries in July 2016 and August 2016 with doxorubicin. -Current treatment with Monthly Sandostatin 30 mg (started 2016) intramuscular injections and Xgeva every 3 months. -Oncology consults Assessment & Plan (05/11/2019 2:13 PM CDT): Currently on Sandostatin and Xgeva. Will be establishing with [facility] Immunizations Immunization Administration Dates Next Due Influenza, [...] 09/01/2021 Pneumococcal Polysaccharide PPV23 07/20/2018 Tdap 05/20/2017 Surgical History Surgery Date Site/Laterality Comments COLON SURGERY 03/12/2016 - 04/10/2016 colectomy CHOLECYSTECTOMY HYSTERECTOMY 07/12/2000 - 07/11/2001 total HERNIA REPAIR 03/12/2016 - 04/10/2016 ARM SURGERY 07/12/1989 - 07/11/1990 Left LIVER SURGERY 03/12/2016 - 04/10/2016 OTHER SURGICAL HISTORY back to remove medicine in back-had to have oncology remove TOENAIL EXCISION 06/11/2021 - 07/11/2021 Left Tania COLONOSCOPY INTRATHECAL PUMP IMPLANTATION OTHER SURGICAL HISTORY transarterial chemoembolization of right & Left hepatic lobes Medical History Medical History Date Comments Cancer (HCC) primary colon wi th mets to bone, liver, breast Hypertension Asthma Low back pain Abdominal pain Memory loss Type 2 diabetes mellitus (HCC) PONV (postoperative nausea a nd vomiting) Fibroid Rib pain on right side 08/12/2020 Uncontrolled pain 04/28/2019 Scalp mass 04/28/2019 Right hip pain 08/12/2020 Leucocytosis 08/22/2019 Colon cancer (HCC) 03/2016 History of radiation therapy History of chemotherapy Smoking current smoker GERD (gastroesophageal reflu x disease) Arthritis History of transfusion Neuropathy Neuroendocrine tumor (HCC) Ileal neuroendocrine tumor Family History Medical History Relation Name Comments Lung cancer Brother 1 Prostate cancer Brother 2 Allergies Daughter Diabetes Father Ilana Ivory Hypertension Father Ilana Ivceci Lung cancer Father Ilana Ivory Breast cancer Father's Sister Anxiety disorder Mother Chelsey Astrid ivory/sesso ms Chronic Pain Mother Chelsey Astrid ivory/uriel Diabetes Mother Chelsey Astrid ivory/uriel Drug abuse Mother Chelsey Astrid ivory/uriel Heart disease Mother Chelsey Astrid ivory/uriel Hypertension Mother Chelsey Astrid ivory/uriel Rheum arthritis Mother Chelsey Astrid ivory/sessom s Stroke Mother Chelsey Astrid ivory/uriel Thyroid cancer Sister 1 Rheum arthritis Sister 2 Breast cancer Sister 3 Allergies Son Endometrial cancer Neg Hx Ovarian cancer Neg Hx Relation Name Status Comments Brother 1 Brother 2 Alive Daughter Alive Father Ilana Ivory Father's Sister Mother Chelsey Astrid ivory/uriel Sister 1 Alive Sister 2 Alive Sister 3 Alive Son Alive Social History Tobacco Use Types Packs/Day Years [...] often do you attend chur ch or yazdanism services? More than 4 times per year 04/14/2023 Do you belong to any clubs o r organizations such as voodoo groups, unions, fraternal or athletic groups, or [...] place to sleep or slept in a detention (including now)? No 04/14/2023 Personal Safety Answer Date Recorded Have you ever been in or are you currently in a harmful physical or emotional relationship or is someone making you feel afraid or unsafe? Denies 09/19/2024 Comments No Sex and Gender Information Value Date Recorded Sex Assigned at Not on file Legal Sex Female 7:39 AM LIBRARIAN SPECIAL LIBRARY Gender Identity Not on file Sexual Orientation Not on file Occupation Industry Job Start Date Job End Date Disabled Not on file Not on file Not on file Obstetrics History Para Term AB IAB SAB Ectopic Multiple Livin g Live Births 3 3 1 2 3 3 Date Outcome GA Total Labor Labor/2nd/3rd Weight Sex Type Anes PTL April A1 A5 Name Clin 1983 Term 40w0 d 3.374 kg (7 lb 7 oz) M CS-Un spec Living 1984 36w0 d F CS-Un spec Living 1984 36w0 d M CS-Un spec Living Last Filed Vital Signs Vital Sign Reading [...] 163.8 cm (5' 4.5) 08/25/2023 6:42 AM LIBRARIAN SPECIAL LIBRARY Body Mass Index 35.15 08/25/2023 6:42 AM LIBRARIAN SPECIAL LIBRARY Plan of Treatment Health Maintenance Due Date Last Done Comments Hepatitis B Screening 1980 Zoster Vaccine (1 of 2) 1981 Lung Cancer Screening 2012 Dilated Eye Exam 04/30/2023 04/30/2022, 05/2022, 06/08/2020 Pneumococcal vaccine <65 (3 of 3 - PPSV23, PCV20 or PCV21) 07/20/2023 09/01/2021, 07/20/2018 Hemoglobin A1C 10/02/2023 04/03/2023, 08/12, 11/20/2021, Additional history exists Albumin Creatinine Ratio, Urine 11/18/2023 11/17/2022, 01/13/2022, 05/03/2020 Foot Exam 03/01/2024 03/01/2023, 02/10, 11/20/2021, Additional history exists Covid-19 Vaccine (2023-2 5 season) 2024 08/08/2021, 11/20/2020, 10/30/2020 Depression Screening 04/16/2024 04/16/2023, 04/08/2023, 03/01/2023, Additional history exists Regular Well Visit/Exam 18-64 04/29/2024, 10/29/2022, 04/30/2022, Additional history exists eGFR 08/17/2024 08/17/2023, 04/12, 04/10/2023, Additional history exists Lipid Panel 09/16/2024 09/17/2023, 08/12, 09/01/2021, Additional history exists Breast Cancer Screening-Mammogram 03/30/2025 03/30/2024, 03/30/2024, 01/14/2023, Additional history exists DTaP/Tdap/Td Vaccine (2 - Td or Tdap) 05/20/2027 05/20/2017 Hepatitis C Screening Completed 05/03/2020 Cervical Cancer Screening Discontinued 04/29/2023, 04/2020 Influenza Vaccine Completed 03/29/2024, , 04/30/2022, Additional history exists Colon Cancer Screening-Colonoscopy Discontinued Goals Goal Patient Goal Type Associated Problems Recent Progress Patient-Stated? Author CCM Chronic Pain Care Plan Chronic Care Management Autumn Mohr, RN Note: Problem: Chronic Pain Goals: 1. Minimize further functional decline 2. Maximize quality of life 3. Control pain Strategies: - Activity/exercise program recommendation - Conservative stepwise pain medicine strategy with multi-disciplinary approach - Recommend healthy lifestyle strategies and compensatory methods as needed Medical Devices Implanted Type Area Children'S Counselor Device Identifier Shelf Expiration Date Model / Serial / Lot Azur Embolization Coil-04/03/2018 Implanted:2017 (Quantity not on file) Right: Renal Medtronic Inc 8780 Ascenda 4fr .5mm 114cm 86cm 2 Piece Connector Pin Flexible Closed - [id number] Implanted:Qty: 1 on 09/19/2020 by Norman Sun MD at [facility] N/A: Back Med[employer] Inc 07/16/2022 [id number] / / [id number] Medtronic Neuro [id number] Synchromed Ii [place] Catheter Access Port Suture Loop [id number] - [id number] - [id number] Implanted:Qty: 1 on 09/19/2020 by Norman Sun MD at [facility] N/A: Back Med[employer]onic Inc 12/23/2021 [id number] / [id number] / Med[employer]onic Inc Ascenda 2 Attached Collet Catheter Connector Hollis Removal Tool [id number] - [id number] Implanted:Qty: 1 on 08/25/2023 by Norman Sun MD at [facility] N/A: Back [employer] Inc 12/04/2024 [id number] / / [id number] Medtronic Inc Ascenda 4fr .5mm 114cm 86cm 2 Piece Connector Pin Flexible Closed [id number] - [id number] Implanted:Qty: 1 on 08/25/2023 by Norman Sun MD at [facility] N/A: Back Med[employer]onic Inc 06/30/2025 [id number] / / [id number] Medtronic Inc Tyrx 3.35x3in Large Envelope Absorbable Polyarylate Minocycline [id number] - [id number] Implanted:Qty: 1 on 08/25/2023 by Norman Sun MD at [facility] N/A: Back [employer] Inc [id number] 04/14/2024 [id number] / / [id number] Procedures Procedure Name Priority Date/Time Associated Diagnosis Comments EGFR Routine 08/17/2023 9:46 AM LIBRARIAN SPECIAL LIBRARY Pre-op testing HEMOGLOBIN A1C Routine 04/03/2023 10:59 AM CDT SCREENING MAMMOGRAM BILATERAL W DARRELL Schedule Routine, Read Routine (OP Routine) 01/14/2023 10:24 AM CDT Screening mammogram, encounter for ALBUMIN CREATININE RATIO, URINE Routine 11/17/2022 7:55 AM CDT Fatigue, unspecified type Type 2 diabetes mellitus with polyneuropathy (HCC) Hx of thyroid nodule LIPID PANEL Routine 08/26/2022 12:43 PM LIBRARIAN SPECIAL LIBRARY Type 2 diabetes mellitus with diabetic polyneuropathy, with long-term current use of insulin (HCC) Tobacco abuse disorder HM DIABETES EYE EXAM Routine 02/19/2022 PAP ONLY Routine 06/20/2020 9:29 AM LIBRARIAN SPECIAL LIBRARY HEPATITIS C ANTIBODY Routine 05/03/2020 10:58 AM CDT Need for hepatitis C screening test from Last 3 Months or Most Recently Relevant to Health Maintenance Results * eGFR (08/17/2023 9:46 AM LIBRARIAN SPECIAL LIBRARY) eGFR 42 mL/min/1. 73 m2 JOSIAH GELLER [...] of Race in Diagnosing Kidney Disease, JASN 2020). The CKD-EPI equation should not be used for patients with unstable renal function and has not been validated in children and those over 70. Current interpretive data was last reviewed 2021. Blood 08/17/2023 9:46 AM LIBRARIAN SPECIAL LIBRARY 08/17/2023 9:51 AM LIBRARIAN SPECIAL LIBRARY Nitin Hernandez RADIOLOGY TRANSCRIPTIONIST LAB BLOOD ORDERABLES Final Result Performing Organization Address [facility] Co de Phone Number JOSIAH GELLER [address] [facility] [place] [address] * (ABNORMAL) Hemoglobin A1c (04/03/2023 10:59 AM CDT) Hgb A1C 7.3(H) 4.0 - 5.6 % JOSIAH Estimated Average Glucose 163 mg/dL JOSIAH Comment: The ADA recommends reporting an estimated Average Glucose (eAG) with all Hemoglobin A1c results using the equation derived from a study of 507 normal and diabetic adults. Minority populations were underrepresented and children were not included. (Diabetes Care 31:1022-8710, 2008). The eAG is not equivalent to a fasting glucose. Blood 04/03/2023 10:5 9 AM CDT 04/03/2023 12:00 PM CDT Kiersten Jeffers RADIOLOGY TRANSCRIPTIONIST LAB BLOOD ORDERABLES Final Result Performing Organization Address [facility] de Phone Number JOSIAH GELLER [address] [facility] [place] [address] * Screening Mammogram Bilateral W Darrell (01/14/2023 [...] was last revised 2018. Testing performed by: [address] [address] Creatinine Ur 120.7 mg/dL JOSIAH RODRIGUEZ ([place]) Comment: Interpretive Data No reference range established. Current interpretive data was last revised 2018. Testing performed by: [facility], [address] [place] [address]., [address] Albumin Creatinine Ratio, Ur 69(H) 1 - 29 mg/g JOSIAH RODRIGUEZ ([place]) Comment:Testing performed by : [address] [address] Urine 11/17/2022 7:55 AM CDT 11/17/2022 6:46 PM CDT Narrative JOSIAH RODRIGUEZ ([place]) - 11/17/2022 8:04 PM CDT Non fasting Annalee Donovan NP LAB URINE ORDERABLES Final Res ult JOSIAH RODRIGUEZ ([place]) 1 [facility] Department [place] [address] * (ABNORMAL) Lipid panel (08/26/2022 12:43 PM LIBRARIAN SPECIAL LIBRARY) Cholesterol 202(H) 30 - 199 mg/dL CERNER Comment: Interpretive Data Ages < [...] last revised on 2018. Testing performed by: [facility], [address] [place] [address] Triglycerides 191(H) <=149 mg/dL CERNER Comment: Interpretive [...] Pediatrics 2011;128:S213 2. NCEP Expert Panel. Circulation 2003;110:227 Current Interpretive Data was last revised on 2018. Testing performed by: [facility], [address] [place] [address] HDL 49 >=40 mg/dL CERNER Comment: Interpretive Data Ages < [...] last revised on 2018. Testing performed by: [facility], [address] [place] [address] LDL, calculated 115 <=129 mg/dL JOSIAH GELLER Comment: Interpretive Data Ages [...] last revised on 2018. Testing performed by: [facility], [place] [address] Non-HDL Cholesterol 153 mg/dL JOSIAH GELLER Comment: [...] last revised on 2018. Testing performed by: [facility], [place] [address] Chol/HDL ratio 4 JOSIAH GELLER Comment:Testing performed by : [facility], [place] [address] Blood 08/26/2022 12:4 3 PM LIBRARIAN SPECIAL LIBRARY 08/26/2022 12:43 PM [facility]IAN SPECIAL LIBRARY Brigida Ocasio NP LAB BLOOD ORDERABLES Fi nal Result JOSIAH GELLER [address] [place] [address] * DIABETES EYE EXAM (02/19/2022) SCRIBED DIABETIC DILATED EYE EXAM Normal 02/19/2022 Historical Provider MD HEALTH MAINTENANCE Final Result * Pap Only (06/20/2020 9:29 AM LIBRARIAN SPECIAL LIBRARY) CLINICAL INFORMATION: Heather VelásquezJulianeIsaiah angelita Mcelroy Comment:CERVICAL CANCER SCRE ENING LMP Heather VelásquezJulianeIsaiah goldstein Navi Comment:INFORMATION NOT PROV IDED Previous Pap Heather VelásquezJulianeIsaiah angelita Mcelroy Comment:INFORMATION NOT PROV IDED Prev. Bx Heather goldstein Navi Comment:INFORMATION NOT PROV IDED SOURCE: Heather VelásquezMalcolm Mcelroy Comment:Vagina Pap, specimen adequacy Heather VelásquezJulianeIsaiah goldstein Navi Comment:SATISFACTORY FOR DULCE MARIA LUATION HPV interp Heather VelásquezJulianeIsaiah goldstein Navi Comment:Negative for intraep ithelial lesion or malignancy. Staff Internist Office Based Only Que st VelásquezJulianeIsaiah angelita Mcelroy Comment: BKA, CT(ASCP) CT screening location: [place] [address] [address] [place] [address] Comment Heather ChristenMalcolm Mcelroy Comment: EXPLANATORY NOTE: The Pap is [...] and current clinical information. 06/20/2020 9:29 AM LIBRARIAN SPECIAL LIBRARY 2020 8:18 AM LIBRARIAN SPECIAL LIBRARY Inocencia Altman NP LAB CYTOLOGY ORDERABLES Final Re sult [facility] [place] [address] [place] [address] * Hepatitis C antibody (05/03/2020 10:58 AM CDT) Hep C Ab Nonreactive Nonreactive [facility] ([place]) Comment: Interpretive Data Nonreactive: Antibodies to [...] last revised on 2019. Testing performed by: [facility], [address] [place] [address], [place]., [address] Blood specimen (specimen) 05/03/2020 10:58 AM CDT 05/03/2020 3:57 PM CDT Nestor Antunez MD LAB MICROBIOLOGY - GENE RAL ORDERABLES Final Result [facility] ([place]) 1 [facility] [place] [address] from Last 3 Months or Most Recently Relevant to Health Maintenance Insurance HU[employer]NA MEDICARE HMO HUMANA MEDICARE HMO [facility] MEDICARE HMO Advance Directives For more information, please contact: [phone] Documents on File Type Date Recorded Patient Networking Engineer Expl anation ADVANCE DIRECTIVE 04/12/2023 3:03 PM Power of Paralegal Assistant-Medical * Full Code (Latest Code Status on [...] 12:20 AM 04/28/2019 8:09 PM Care Teams Sponge Buffer Relationship Specialty Start Date End Date Jimi Rosario MD Medical Oncologist/Selling Manager Hematology and Oncology 08/28/22
--- OUTSIDE RECORDS SUMMARY | 2025-01-14 15:26 | XMS_ITS | Encounter Summary ---
Author Organization [facility] Address [address] [place] [address] Care Team Providers Care Landscape Architecture Professor Name Role Phone Jennifer Mccoy RN Unavailable Carine Watson MD Unavailable Fany Archuleta DIESEL FLEET MECHANIC-SUPERVISOR TELLERS Unavailable Ondina Brannon THERAPEUTIC RECREATION SPECIALIST Unavailable Jimmie Hampton MD Unavailable Sebastian Perez MD Primary Care Provider Sebastian Head MD Primary Care Provider Sebastian Head MD Unavailable Unavailable Reason for Visit * Reason Onset Date Comments MEDICATION REFILL 03/07/2018 Encounter Details Date Type Department Care Team (Late st Contact Info) Description 03/07/2018 Refill [facility] [address] [place] [address] Tay Valdes, DIESEL FLEET MECHANIC-SUPERVISOR TELLERS [address] [place] [address] MEDICATION REFILL Social History Tobacco Use Types Packs/Day Years Used Date Smoking Tobacco: Light Smoker Cigarettes Smokeless Tobacco: Never Comments:social smoker only Alcohol Use Standard Drinks/Week Comments No 0 (1 standard drink = 0.6 oz pur e alcohol) Comments No Sex and Gender Information Value Date Recorded Sex Assigned at Not on file Legal Sex Female 5:10 AM SCRAP BREAKER Gender Identity Not on file Sexual Orientation [...] Chantal Cifuentes RN documented in this encounter Miscellaneous Notes * Telephone Encounter - Mo Kelsey - 03/07/2018 10:13 AM CDT Pharmacy calling in requesting refills for the following: Hydrochlorothiazide 25mg Potassium chloride 10 meq YURI: 10/26/17 NOV:03/16/18 Problem List Identified: office visit on 10/26/17 Essential HTN Medication attached per refill protocol/guidlines for further review by provider yes PCP / Resident PCP verified yes Allergies Reviewed yes Pharmacy Reviewed yes Medication details entered yes - Please review prior to authorization. Transcribed per last RX Office visit within the last six months yes if not within last 6 months route to GIM-scheduling as well. Office visit greater than 12 months no routed to GIM scheduling ONLY no. 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 documented in this encounter Care Teams Landscape Architecture Professor Relationship Specialty [place] [address] [address] [facility] [address] [place] [address] PCP - General Family Medicine 06/10/18 8 [place] [address] [address] PCP - General Family Medicine 07/19/18 11/10/20 Sebastian Perez MD per [id number] PCP - Attributed-MSSP 08/12/19 Jennifer Mccoy RN Card Assembler 03/31/16 Carine Watson MD [address] [place] [address] [place] [id number] Oncology 04/09/16 07/19/18 Fany Archuleta APRN-SUPERVISOR TELLERS [address] [place] [address] [place] [id number] Nurse Practitioner Nurse Practitioner 04/09/16 Ondina Brannon MSW ME Stacker Straightener 07/31/16 [place] [address] [id number] Traveling Repair Accountant Rheumatology 05/31/17 documented as of this encounter
--- OUTSIDE RECORDS SUMMARY | 2025-01-14 15:26 | XMS_ITS | Encounter Summary ---
Author Organization [facility] Address [address] [place] [address] Phone Care Team Providers Care Toggler Name Role Phone Antonio Rendon MD Primary Care Provider [phone] Osito Hong APRN, TRANSITION MGR RN Primary Care Pr ovider Sahil Iyer MD Unavailable [phone] Kael Angela MD Unavailable [phone] Ana Maria Esparza Unavailable Unavaila Alex Fischer MD Unavailable [phone] Kirill Gil MD Unavailable Reason for Visit * Reason Comments Medication Refill Encounter Details Date Type Department Care Team (Late st Contact Info) Description 11/18/2023 Refill [facility] - Family Medicine [facility] [address] [place] [phone] Antonio Rendon MD [address] [place] [address] Medication Refill Social History Tobacco Use Types [...] CDT Gender Identity Female 05/27/2023 6:50 AM FLIGHT OPERATIONS SPECIALIST Sexual Orientation Not on file documented as of this encounter Miscellaneous Notes * Telephone Encounter - Shadia Philip RN - 11/18/2023 10:11 AM CDT Medication failed the protocol, provider to review and approve the medication order if appropriate. Requested Prescriptions Pending Prescriptions Disp Refills potassium chloride SA (KLORCON M) 10 MEQ Tablet Controlled Release [Pharmacy Med Name: Potassium Chloride Lizzeth ER 10 MEQ Oral Tablet Extended Release] 90 Tablet 2 Sig: Take 3 tablets by mouth once daily Potassium Supplement Protocol Failed - 11/18/2023 6:14 AM Failed - Normal serum potassium in past 12 months POTASSIUM Date Value Ref Range Status 11/02/2023 3.1 (L) 3.5 - 5.1 mmol/L Final Passed - Visit with relevant provider in past 12 months or upcoming 90 days Recent Visits Date Type Provider Dept 09/16/23 Office Visit Antonio Rendon MD Osfadi Kim 06/17/23 Office Visit Antonio Rendon MD Osfadi Kim Showing recent visits within past 365 days and meeting all other requirements Future Appointments Date Type Provider Dept 01/21/24 Appointment Antonio Rendon MD Osfadi Kim Showing future appointments within next 90 days and meeting all other requirements documented in this encounter Plan of Treatment Upcoming Encounters Date Type Department Care Team (Latest Contact Info) Description 01/24/2025 10:30 AM CDT Clinical Support [facility] Oncology Services [address] [place] [phone] Sahil Iyer MD [address] [place] [address] Discharge Disposition: Discharged to home or Selfcare 02/12/2025 10:00 AM CDT Office Visit [facility] - Endocrinology - [place] [address] [place] [address] Kirill Gil MD #[address] [phone] 02/21/2025 10:30 AM CDT Clinical Support [facility] Oncology Services [address] [place] [address] Sahil Iyer MD [address] [place] [address] Discharge Disposition: Discharged to home or Selfcare 03/01/2025 9:00 AM CDT Office Visit [facility] Oncology Services [address] [place] [address] Sahil Iyer MD [address] [place] [address] Discharge Disposition: Discharged to home or Selfcare 03/26/2025 10:45 AM CDT Office Visit [facility] - Family Medicine [facility] [address] [place] [address] Osito Hong APRN, JARRETT #[address] [address] 04/03/2025 9:00 AM CDT Office Visit [facility] Oncology Services [address] [place] [address] Alex Ahumada MD [address] [place] [address] Discharge Disposition: Discharged to home or Selfcare documented as of this encounter Visit Diagnoses Diagnosis Hypokalemia Hypopotassemia documented in this encounter Care Teams Toggler Relationship Specialty Start Date End Date Antonio Rendon MD [address] [place] [address] PCP - General Family Medicine 06/17/23 12/29/23 Osito Hong PAVING MACHINE OPERATOR, TRANSITION MGR RN #[address] [address] PCP - General Advanced Practice Nurse 12/31/23 Sahil Iyer MD [address] [place] [address] Consulting Physician Medical Oncology 05/31/23 Kael Angela MD #[address] [address] Consulting Physician General Surgery 05/30/24 Ana Maria Esparza, [facility] Patient Navigator 06/26/24 07/17/24 Alex Ahumada MD [address] [place] [address] Consulting Physician Radiation Oncology 07/26/24 Kirill Gil MD #[address] [address] Consulting Physician Endocrinology 11/07/24 documented as of this encounter
--- OUTSIDE RECORDS SUMMARY | 2025-01-14 15:26 | XMS_ITS ---
Author Organization [facility] Address [address] [place] [address] Phone Care Team Providers Care Dye Colorist Dyer Name Role Phone Osito Hong APRN, RATING SPECIALIST Primary Care Pr ovider Sahil Iyer MD Unavailable Kael Angela MD Unavailable Alex Ahumada MD Unavailable Kirill Gil MD Unavailable Active Problems Problem Noted Date Diagnosed Date Inconclusive mammogram 12/27/2024 Myalgia 11/29/2024 Muscle cramp 11/29/2024 Use of letrozole (Femara) 09/27/2024 Overview (09/27/2024): Started on adjuvant endocrine therapy with letrozole 09/18/2024. Infiltrating ductal carcinoma of left female brayan ast 09/18/2024 History of therapeutic radiation 09/04/2024 Overview (09/04/2024): A. Left whole breast radiotherapy 42.56 Gy in 16 fractions from 08/14/2024 thru 09/04/2024. B. Possibly some some type of radiopharmaceutical at a [facility] in [place] for her metastatic carcinoid tumor of the ileum. 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 She initially presented to the ED at [facility] in [place], [place] 03/30/2016 and was diagnosed with metastatic carcinoid tumor on the basis IR FNA of liver metastasis 03/31/2016. CT abdomen and pelvis at that time was remarkable for a carcinoma tumor involving the terminal ileum with intra-abdominal nodes and liver metastases. In June 2016 she underwent a right hemicolectomy once again demonstrating well-differentiated neuroendocrine carcinoma. In 07/2016 and 08/2016 she underwent chemoembolization for her liver metastases. In 10/2016, she was started on sandostatin, which she has continued since that time. In 07/2018, she transferred her care to [facility] ([facility] in [place], [place]. Based on the presence of bony metastases, she was started on Xgeva. For osseous spinal metastases, she received vertebroplasty of T8 and T9 with RF ablation. See transfer her care back to the [facility] and the [facility] in the latter part of 2018. As per [facility] Radiation Oncology notes in 2019 consideration had been given to treating her with Lutathera but apparently this was never given. Specific treatment history with somewhat unclear as records not obtainable to date from the [facility] inpatient describes a l iquid chemotherapy that made her very sick and also said she had some type of radiation treatment in which she was in a t ube but said it was not her left breast. In May 2023 she transferred her medical oncology care and ongoing Iyer statin and Xgeva to Dr. Iyre here at the [facility]. 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 Her primary tumor was ER/RI positive and HER2 negative. There was a smaller portion of the tumor with distinct morphology which was triple negative but does not change the treatment recommendation. There was no recommendation for chemotherapy or immunotherapy. She began left whole breast radiotherapy 08/14/2024 and completed 09/04/2024 receiving 42.56 Gy in 16 fractions. She was started on adjuvant endocrine therapy with letrozole 09/18/2024. 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 She initially presented to the ED at [facility] in [place], [place] 03/30/2016 and was diagnosed with metastatic carcinoid tumor on the basis IR FNA of liver metastasis 03/31/2016. CT abdomen and pelvis at that time was remarkable for a carcinoma tumor involving the terminal ileum with intra-abdominal nodes and liver metastases. In June 2016 she underwent a right hemicolectomy once again demonstrating well-differentiated neuroendocrine carcinoma. In 07/2016 and 08/2016 she underwent chemoembolization for her liver metastases. In 10/2016, she was started on sandostatin, which she has continued since that time. In 07/2018, she transferred her care to [facility] ([facility]) in [place], [place]. Based on the presence of bony metastases, she was started on Xgeva. For osseous spinal metastases, she received vertebroplasty of T8 and T9 with RF ablation. See transfer her care back to the [place] area and the [facility] in the latter part of 2018. As per [facility] Radiation Oncology notes in 2019 consideration had been given to treating her with Lutathera but apparently this was never given. Specific treatment history with somewhat unclear as records not obtainable to date from the [facility] inpatient describes a l iquid chemotherapy that made her very sick and also said she had some type of radiation treatment in which she was in a t ube but said it was not her left breast. In May 2023 she transferred her medical oncology care and ongoing Iyer statin and Xgeva to Dr. Shireen lovett at the [facility]. 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 She initially presented to the ED at [facility] in [place], [place] 03/30/2016 and was diagnosed with metastatic carcinoid tumor on the basis IR FNA of liver metastasis 03/31/2016. CT abdomen and pelvis at that time was remarkable for a carcinoma tumor involving the terminal ileum with intra-abdominal nodes and liver metastases. In June 2016 she underwent a right hemicolectomy once again demonstrating well-differentiated neuroendocrine carcinoma. In 07/2016 and 08/2016 she underwent chemoembolization for her liver metastases. In 10/2016, she was started on sandostatin, which she has continued since that time. In 07/2018, she transferred her care to [facility] ([facility]) in [place], [place]. Based on the presence of bony metastases, she was started on Xgeva. For osseous spinal metastases, she received vertebroplasty of T8 and T9 with RF ablation. See transfer her care back to the [facility] and the [facility] in the latter part of 2018. As per [facility] Radiation Oncology notes in 2019 consideration had been given to treating her with Lutathera but apparently this was never given. Specific treatment history with somewhat unclear as records not obtainable to date from the [facility] inpatient describes a l iquid chemotherapy that made her very sick and also said she had some type of radiation treatment in which she was in a t ube but said it was not her left breast. In May 2023 she transferred her medical oncology care and ongoing Shireen statin and Xgeva to Dr. Shireen lovett at the [facility]. 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 She initially presented to the ED at [facility] in [place], [place] 03/30/2016 and was diagnosed with metastatic carcinoid tumor on the basis IR FNA of liver metastasis 03/31/2016. CT abdomen and pelvis at that time was remarkable for a carcinoma tumor involving the terminal ileum with intra-abdominal nodes and liver metastases. In June 2016 she underwent a right hemicolectomy once again demonstrating well-differentiated neuroendocrine carcinoma. In 07/2016 and 08/2016 she underwent chemoembolization for her liver metastases. In 10/2016, she was started on sandostatin, which she has continued since that time. In 07/2018, she transferred her care to [facility] ([facility]) in [place], [place]. Based on the presence of bony metastases, she was started on Xgeva. For osseous spinal metastases, she received vertebroplasty of T8 and T9 with RF ablation. See transfer her care back to the [facility] and the [facility] in the latter part of 2018. As per [facility] Radiation Oncology notes in 2019 consideration had been given to treating her with Lutathera but apparently this was never given. Specific treatment history with somewhat unclear as records not obtainable to date from the [facility] inpatient describes a l iquid chemotherapy that made her very sick and also said she had some type of radiation treatment in which she was in a t ube but said it was not her left breast. In May 2023 she transferred her medical oncology care and ongoing Iyer statin and Xgeva to Dr. Iyer here at the [facility]. Hypertension Current Treatment and Therapy Plans SUPPORT - DENOSUMAB (X-GEVA) every 3 months* Plan Start Date:05/31/2023 Plan Provider:Sahil Iyer MD Linked Problems Metastatic malignant neuroen docrine tumor to liver (HCC)Metastasis to bone (HCC)Malignant carcinoid tumor of ileum Treatment Medications No medications scheduled. SUPPORT - OCTREOTIDE IM* Plan Start Date:06/07/2023 Plan Provider:Sahil Iyer MD Linked Problems Metastatic malignant neuroen docrine tumor to liver (HCC)Malignant carcinoid tumor of ileum Treatment Medications Current Day (Day 5 6, Cycle 6 - Planned for 03/29/2025) Next Day (Day 57, Cycle 6 - Planned for 04/26/2025) No medications scheduled. No medications schedul ed. No medications scheduled. Past Treatment and Therapy Plans No past plan information found. 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
--- OUTSIDE RECORDS SUMMARY | 2025-01-14 15:26 | XMS_ITS | Encounter Summary ---
Author Organization [facility] Address [address] [place] [address] Phone Care Team Providers Care Drill Press Hand Name Role Phone Tameka Curry MD Primary Care Provider Sebastian Perez MD Primary Care Provider London Jackson MD Primary Care Provider + Nestor Antunez MD Primary Care Provider Inocencia Altman NP Unavailable Nazanin Granados MD Unavailable Efrem Mcdaniels MD Unavailable Unknown, Notinfile Primary Care Provider Unavail able Nestor Antunez MD Primary Care Provider Lauren Manley RN Unavailable [phone] Brigida Ocasio CORPORATE REAL ESTATE SPECIALIST Primary Care Provider Jimi Rosario MD Unavailable Jean Marie Valerio MD Primary Care Provider Annalee Donovan NP Primary Care Provider Ariella Carr RN Unavailable Jacqui Soni Contreras EARLY CHILDHOOD WORKER Unavailable [phone] Antonio Rendon MD Primary Care Provider [phone] Annalee Donovan NP Primary Care Provider [phone] Encounter Details Date Type Department Care Team (Latest Contact Info) Description 07/13/2018 Orders Only [facility] Scanning, Provider Social History Tobacco Use Types Packs/Day Years Used Date Smoking Tobacco: Never Assessed Comments Unknown Sex and Gender Information Value Date Recorded Sex Assigned at Not on file Legal Sex Female 7:39 AM FINE HAIRER Gender Identity Not on file Sexual Orientation Not on file documented as of this encounter Plan of Treatment Not on file documented as of this encounter Procedures Procedure Name Priority Date/Time Associated Diagnosis Comments SCAN - RADIOLOGY/IMAGING 07/13/2018 documented in this encounter Results * SCAN - RADIOLOGY/IMAGING (07/13/2018) Anatomical Region Laterality Modality Other us Provider [...] documented as of this encounter Care Teams Drill Press Hand Relationship Specialty Start Date End Date Tameka Curry MD PCP - General 08/27/16 04/26/19 Sebastian Perez MD [address] [address] PCP - General Family Medicine 04/27/19 05/11/19 London Jackson MD [address] [place] [address] PCP - General Internal Medicine 05/12/19 05/02/20 Nestor Antunez MD [address] [place] [address] PCP - General Family Medicine 05/03/20 09/10/20 Unknown, Notinfile PCP - General 09/11/20 09/12/20 Nestor Antunez MD [address] [place] [address] PCP - General 09/13/20 10/21/20 Brigida Ocasio, RASHAWN [address] [place] [address], [place] [address] PCP - General Family Medicine 10/22/20 10/18/22 Jean Marie Valerio MD [address] [place] [address] [address] [place] [address] PCP - General Internal Medicine 10/19/22 10/28/22 Annalee Donovan, CORPORATE REAL ESTATE SPECIALIST [address] [place] [address] [address] [place], [place] [address] [address] PCP - General Nurse Practitioner 10/29/22 06/13/23 Antonio Rendon MD [address] [place] [address] PCP - General Family Medicine 06/14/23 06/15/23 Annalee Donovan, CORPORATE REAL ESTATE SPECIALIST [address] [facility] [address] [place] [address] PCP - General Internal Medicine 06/16/23 10/31/24 Inocencia Altman, CORPORATE REAL ESTATE SPECIALIST [address] [place] [address] [address] [address] Obstetrics and Gynecology 05/03/20 10/18/22 Nazanin Granados MD [address] [place] [address] [place] [address] Medical Oncologist/Steel Worker Medical Oncology 05/03/20 08/18/20 Efrem Mcdaniels MD [address] [facility] [address] [place], [place] [address] Consulting Physician Medical Oncology 08/19/20 10/18/22 Lauren Manley RN [address] [place] [address] [address] [place], [place] [id number] Electrical Engineer Mep 09/16/20 10/15/20 Jimi Rosario MD [address] [place] [address], [place] [address] Medical Oncologist/Steel Worker Hematology and Oncology 08/28/22 Ariella Carr, AUBREY [address] [place] [address] [address] [place] [address] Electrical Engineer Mep 04/07/23 05/04/23 Soni Osman LCSW [address] [place] [address] [address] [place] [address] Regional Director Of Admissions 04/12/23 04/13/23 documented as of this encounter
--- OUTSIDE RECORDS SUMMARY | 2025-01-14 15:26 | XMS_ITS | Encounter Summary ---
Author Organization [facility] Address [address] [facility] [place] [address] Phone Care Team Providers Care Brim Molder Name Role Phone Annalee Donovan APRN, [facility] Primary Care Provider + Antonio Rendon MD Primary Care Provider Osito Hong APRN, [facility] Primary Care Pr ovider Sahil Iyer MD Unavailable [phone] Kael Angela MD Unavailable [phone] Ana Maria EsparzaA Unavailable Unavaila Alex Fischer MD Unavailable [phone] Kirill Gil MD Unavailable Reason for Visit * Reason Onset Date Comments Medication Refill 06/09/2023 Encounter Details Date Type Department Care Team (Late st Contact Info) Description 06/09/2023 Refill [facility] - Cancer Center Oncology Services [address] [place] [address] Sahil Iyer MD [address] [place] [address] Medication Refill Social History Tobacco Use Types Packs/Day Years Used Date Smoking Tobacco: Every Day Cigarettes Smokeless Tobacco: Never Alcohol Use Standard Drinks/Week Comments Yes 0 (1 standard drink = 0.6 oz pur e alcohol) 2-3/ year Comments No Sex and Gender Information Value Date Recorded Sex Assigned at Not on file Legal Sex Female 4:44 PM CDT Gender Identity Female 05/27/2023 6:50 AM RENEWALS MANAGER Sexual Orientation Not on file documented as of this encounter Miscellaneous Notes * Telephone Encounter - Mel Treviño RN - 06/09/2023 10:53 AM CST This was previously filled by her [facility] oncologist. She needs a refill WALS MANAGER documented in this encounter Plan of Treatment Upcoming Encounters Date Type Department Care Team (Latest Contact Info) Description 01/24/2025 10:30 AM CDT Clinical Support [facility] Oncology Services [address] [place] [address] Sahil Iyer MD [address] [place] [address] Discharge Disposition: Discharged to home or Selfcare 02/12/2025 10:00 AM CDT Office Visit [facility] - Endocrinology - [place] [address] [place] [address] Kirill Gil MD #[address] [address] 02/21/2025 10:30 AM CDT Clinical Support [facility] Oncology Services [address] [place] [address] Sahil Iyer MD [address] [place] [address] Discharge Disposition: Discharged to home or Selfcare 03/01/2025 9:00 AM CDT Office Visit [facility] Oncology Services [address] [place] [address] Sahil Iyer MD [address] [place] [address] Discharge Disposition: Discharged to home or Selfcare 03/26/2025 10:45 AM CDT Office Visit [facility] - Family [facility] [address] [place] [address] Osito Hong APRN, IMAGING SYSTEM ADMINISTRATOR [address] [address] 04/03/2025 9:00 AM CDT Office Visit [facility] Oncology Services [address] [place] [address] Alex Ahumada MD [address] [place] [address] Discharge Disposition: Discharged to home or Selfcare documented as of this encounter Visit Diagnoses Not on filedocumented in this encounter Care Teams Brim Molder Relationship Specialty Start Date End Date Annalee Donovan APRN, IMAGING SYSTEM ADMINISTRATOR PCP - General Advanced Practice Nurse 05/29/23 Antonio Rendon MD [address] [place] [address] PCP - General Family Medicine 06/17/23 12/29/23 Osito Hong APRN, IMAGING SYSTEM ADMINISTRATOR #[address] [address] PCP - General Advanced Practice Nurse 12/31/23 Sahil Iyer MD [address] [place] [address] Consulting Physician Medical Oncology 05/31/23 Kael Angela MD #[address] [address] Consulting Physician General Surgery 05/30/24 Ana Maria Esparza [facility] Patient Navigator 06/26/24 07/17/24 Alex Ahumada MD [address] [place] [address] Consulting Physician Radiation Oncology 07/26/24 Kirill Gil MD #[address] [address] Consulting Physician Endocrinology 11/07/24 documented as of this encounter
--- OUTSIDE RECORDS SUMMARY | 2025-01-14 15:26 | XMS_ITS | Clinical Summary ---
Author Organization [facility] Address [address] [place] [address] Phone Care Team Providers Care Household Refrigerator Mechanic Name Role Phone Osito Hong APRN, TELEGRAPH MECHANIC Primary Care Pr ovider Sahil Iyer MD Unavailable [phone] Kael Angela MD Unavailable Alex Ahumada MD Unavailable [phone] Kirill Gil MD Unavailable Allergies Active Allergy Reactions Criticality Noted Date Comments Fentanyl Unknown,Other (see Comments) Low 01/04/2018 Other reaction(s): Other I breakout in a sweat I breakout in a sweat Gabapentin Other (see Comments) Medium 11/17/2019 Muscle pain Other reaction(s): Muscle pain Takes pregabalin at home 04/02/23 Gadobenate Itching Medium 08/11/2017 Other reaction(s): Urticaria Patient got hives from multihance Patient got hives from multihance Iodinated Contrast Media Hives High 04/26/2011 Iodine Hives,Vomiting 05/29/2023 Lisinopril Other (see Comments) Low 10/31/2012 cough Other reaction(s): Cough Oxycodone Itching High 04/28/2018 Penicillins Unknown,Rash Medium 04/26/2011 Statins Other (see Comments) Medium 06/10/2018 Muscle pains Other reaction(s): Myalgias Other reaction(s): Muscle pain Vancomycin Itching Medium 10/20/2017 Other reaction(s): Urticaria Medications Multiple Vitamin (MULTIVITAMIN PO) Take 1 Tablet by mouth daily. Active chlorhexidine (PERIDEX) 0.12 % Solution as needed. Active Vitamin D3 (Vitamin D-[address]) 1000 UNIT Tablet Take by mouth daily. Active denosumab (XGEVA) 120 MG/1.7ML Solution by Subcutaneous route every 90 days. Active diphenhydrAMINE (Benadryl Allergy) 25 MG Tablet Take by mouth as needed. Active ferrous sulfate 325 (65 Fe) MG Tablet Take by mouth daily. Active HYDROmorphone (DILAUDID) 2 MG Tablet Take 2 mg by mouth 2 times daily as needed for Moderate or more severe pain. Active magnesium hydroxide (MILK OF MAGNESIA) 400 MG/5ML Suspension Take by mouth as needed. Active Methylcobalamin 1 MG Chewable Tablet Take by mouth. Activ e Morphine Sulf Microinfusion PF (Mitigo) 200 MG/20ML (10 MG/ML) Solution as needed for pain Active octreotide ACETATE (SandoSTATIN LAR) 30 MG Kit 30 mg by Intramuscular route every 21 days. Active [place]-3 Fatty Acids ([place]-3 Fish Oil) 1200 MG Capsule Take 1 Capsule by mouth daily. Active ondansetron (ZOFRAN) 8 MG Tablet Take by mouth as needed. Active predniSONE (DELTASONE) 50 MG Tablet Take 50 mg by mouth as needed for Other (when have contrast media with iodine). 023 Active Insulin Syringe-Needle U-100 (INSULIN SYRINGE .3CC/31GX5/16) 31G X 5/16 0.3 ML MiscIndications: Type 2 diabetes mellitus with diabetic nephropathy, with long-term current use of insulin (HCC) As instructed 180 Each 4 023 Active Insulin Pen Needle (B-D ULTRAFINE III SHORT PEN) 31G X 8 MM Misc Use to inject insulin twice daily 100 Pen Needle 1 024 Active insulin NPH (NovoLIN N FlexPen) 100 UNIT/ML Suspension Pen-injectorIndi cations:Type 2 diabetes mellitus with diabetic nephropathy, with long-term current use of insulin (HCC) 26 Units by Subcutaneous route 2 times daily (before meals). 45 mL 3 024 Active meloxicam (MOBIC) 7.5 MG Tablet 024 Active albuterol 108 (90 Base) MCG/ACT Aerosol Solution take 2 Puffs by inhalation every 4 hours as needed for Wheezing or Cough. 6.7 g 025 Active NIFEdipine CR (PROCARDIA-XL) 60 MG TABLET SR 24 HR Take 1 Tablet by mouth 2 times daily. 180 Tablet 3 025 Active cloNIDine (CATAPRES) 0.1 MG Tablet Take 1 Tablet by mouth daily. 90 Tablet 3 025 Active metFORMIN (GLUCOPHAGE-XR) 500 MG TABLET SR 24 HR Take 1 Tablet by mouth 2 times daily. This RX is for Metformin SR. 180 Tablet 3 025 Active potassium chloride SA (KLORCON M) 10 MEQ Tablet Controlled ReleaseIndicatio ns:Hypokalemia Take 4 Tablets by mouth daily. 360 Tablet 1 025 Active anastrozole (ARIMIDEX) 1 MG Tablet Take 1 Tablet by mouth daily 90 Tablet 1 025 Active losartan potassium-hydroc hlorothiazide (HYZAAR) 100-25 MG Tablet TAKE 1 TABLET EVERY DAY 90 Tablet 1 025 Active carvedilol (COREG) 25 MG TabletIndication s:Primary hypertension TAKE 1 TABLET TWICE DAILY WITH MEALS 180 Tablet 3 025 Active carvedilol (COREG) 25 MG TabletIndication s:Primary hypertension Take 1 Tablet by mouth 2 times daily (with meals). 180 Tablet 3 024 2024 Discontinued Active Problems Problem Noted Date Diagnosed Date Inconclusive mammogram 12/27/2024 Myalgia 11/29/2024 Muscle cramp 11/29/2024 Use of letrozole (Femara) 09/27/2024 Overview (09/27/2024): Started on adjuvant endocrine therapy with letrozole 09/18/2024. Infiltrating ductal carcinoma of left female sofie ast 09/18/2024 History of therapeutic radiation 09/04/2024 Overview (09/04/2024): A. Left whole breast radiotherapy 42.56 Gy in 16 fractions from 08/14/2024 thru 09/04/2024. B. Possibly some some type of radiopharmaceutical at a [facility] in [place] for her metastatic carcinoid tumor of the ileum. 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 She initially presented to the ED at [facility] in [place], [place] 03/30/2016 and was diagnosed with metastatic [...] she transferred her care to [facility] in [place], [place]. Based on the presence of bony metastases, she was started on Xgeva. For osseous spinal metastases, she received vertebroplasty of T8 and T9 with RF ablation. See transfer her care back to the [facility] and the [facility] in the latter part of 2018. As per [facility] Radiation Oncology notes in 2019 consideration had been given to treating her with Lutathera but apparently this was never given. Specific treatment history with somewhat unclear as records not obtainable to date from the [facility] inpatient describes a l iquid chemotherapy that made her very sick and also said she had some type of radiation treatment in which she was in a t ube but said it was not her left breast. In May 2023 she transferred her medical oncology care and ongoing Iyer statin and Xgeva to Dr. Iyer here at the [facility]. Carcinoma of upper-outer dilan drant of left breast in female, estrogen receptor positive 05/22/2024 Cancer Staging:Clinical stage from 05/16/2024:Stage IA(cT1b, cN0, cM0, G1, ER+, CA+, HER2-) - Signed by Alex Ahumada MD on 07/26/2024 Pathologic stage from 06/22/2024:Stage IA(pT1b, pN0(sn), cM0, G1, ER+, CA+, HER2-, Oncotype DX score: 19) - Signed by Alex Ahumada MD on 07/26/2024 Overview (09/27/2024): Clinical and pathologic stage IA (pT1b, pN0(sn), cM0, ER/CA positive, HER2 negative, Oncotype DX score: 19) left breast IDC status post left partial mastectomy and left axillary sentinel lymph node biopsy 06/22/2024. Her primary tumor was ER/CA positive and HER2 negative. There was a [...] She initially presented to the ED at [facility] in [place], [place] 03/30/2016 and was diagnosed with metastatic [...] care to [facility]) in [place], [place]. Based on the presence of bony metastases, she was started on Xgeva. For osseous spinal metastases, she received vertebroplasty of T8 and T9 with RF ablation. See transfer her care back to the [facility] and the [facility] in the latter part of 2018. As per [facility] Radiation Oncology notes in 2019 consideration had been given to treating her with Lutathera but apparently this was never given. Specific treatment history with somewhat unclear as records not obtainable to date from the [facility] inpatient describes a l iquid chemotherapy that made her very sick and also said she had some type of radiation treatment in which she was in a t ube but said it was not her left breast. In May 2023 she transferred her medical oncology care and ongoing Iyer statin and Xgeva to Dr. Iyer here at the [facility]. 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 She initially presented to the ED at [facility] in [place], [place] 03/30/2016 and was diagnosed with metastatic [...] care to [facility] in [place], [place]. Based on the presence of bony metastases, she was started on Xgeva. For osseous spinal metastases, she received vertebroplasty of T8 and T9 with RF ablation. See transfer her care back to the [facility] and the [facility] in the latter part of 2018. As per [facility] Radiation Oncology notes in 2019 consideration had been given to treating her with Lutathera but apparently this was never given. Specific treatment history with somewhat unclear as records not obtainable to date from the [facility] inpatient describes a l iquid chemotherapy that made her very sick and also said she had some type of radiation treatment in which she was in a t ube but said it was not her left breast. In May 2023 she transferred her medical oncology care and ongoing Shireen statin and Xgeva to Dr. Shireen lovett at the [facility]. 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 She initially presented to the ED at [facility] in [place], [place] 03/30/2016 and was diagnosed with metastatic [...] care to [facility]) in [place], [place]. Based on the presence of bony metastases, she was started on Xgeva. For osseous spinal metastases, she received vertebroplasty of T8 and T9 with RF ablation. See transfer her care back to the [facility] and the [facility] in the latter part of 2018. As per [facility] Radiation Oncology notes in 2019 consideration had been given to treating her with Lutathera but apparently this was never given. Specific treatment history with somewhat unclear as records not obtainable to date from the [facility] inpatient describes a l iquid chemotherapy that made her very sick and also said she had some type of radiation treatment in which she was in a t ube but said it was not her left breast. In May 2023 she transferred her medical oncology care and ongoing Iyer statin and Xgeva to Dr. Shireen lovett at the [facility]. Hypertension Resolved Problems Problem Noted Date Diagnosed Date Resolved Date Hypokalemia 08/18/2023 07/28/2024 Back pain without sciatica 05/31/2023 0 09/04/2024 Metastases to the liver 07/24/201607/12 Encounters Date Type Department Care Team Description 01/09/2025 Telephone [facility]cology Services [address] [place] [phone] Sahil Iyer MD 12/27/2024 11:00 AM CDT Clinical Support [facility] [address] [place] [phone] Sahil Iyer MD Metastatic malignant neuroendocrine tumor to liver (HCC) (Primary Dx); Neuroendocrine cancer (HCC); Metastasis to bone (HCC); Malignant carcinoid tumor of ileum Discharge Disposition: Discharged to home or Selfcare 12/27/2024 10:40 AM CDT Office Visit [facility] [address] [place] [phone] Sahil Iyer MD Infiltrating ductal carcinoma of left female breast (Primary Dx); Inconclusive mammogram; Type 2 diabetes mellitus with diabetic nephropathy, with long-term current use of insulin (HCC); 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; Metastasis to bone (HCC); Malignant carcinoid tumor of ileum Discharge Disposition: Discharged to home or Selfcare 12/27/2024 Travel 12/26/2024 Travel 12/17/2024 Refill [facility] [place] [address] Osito Hong APRN, JARRETT Medication Refill 12/03/2024 Refill [facility] [place] [address] Osito Hong APRN, TELEGRAPH MECHANIC Medication Refill 11/29/2024 11:00 AM CDT Clinical Support [facility] [address] [place] [phone] Sahil Iyer MD Metastatic malignant neuroendocrine tumor to liver (HCC) (Primary Dx); Neuroendocrine cancer (HCC) Discharge Disposition: Discharged to home or Selfcare 11/29/2024 10:20 AM CDT Office Visit [facility] Oncology Services [address] [place] [address] Sahil Iyer MD Myalgia (Primary Dx); Muscle cramp; Metastatic malignant neuroendocrine tumor to liver (HCC); Neuroendocrine cancer (HCC); Use of letrozole (Femara); Infiltrating ductal carcinoma of left female breast; 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 Discharge Disposition: Discharged to home or Selfcare 11/29/2024 Travel 11/24/[address] [phone] Osito Hong APRN, TELEGRAPH MECHANIC Advice Only 11/23/2024 8:30 AM CDT Office Visit [facility] - Family Medicine [facility] [address] [place] [address] Osito Hong APRN, TELEGRAPH MECHANIC Primary hypertension (Primary Dx); Malignant carcinoid tumor of ileum; Carcinoma of upper-outer quadrant of left breast in female, estrogen receptor positive (HCC) Discharge Disposition: Discharged to home or Selfcare 11/23/2024 Travel 11/20/2024 Telephone [facility] [address] [place] [phone] Paula Day 11/10/2024 8:45 AM CDT Office Visit [facility] - Endocrinology [facility] [address] [place] [phone] Lexi Thompson APRN, TELEGRAPH MECHANIC Kirill Gil MD Type 2 diabetes mellitus with diabetic nephropathy, with long-term current use of insulin (HCC) (Primary Dx); Class 2 severe obesity due to excess calories with serious comorbidity and body mass index (BMI) of 35.0 to 35.9 in adult (HCC); Insulin dose changed (HCC); Hypoglycemia; Tobacco use Discharge Disposition: Discharged to home or Selfcare 11/10/2024 Travel 11/08/2024 [facility] [place] [address] Osito Hong APRN, JARRETT Patient Assistance Med ([facility]) 10/27/2024 9:00 AM CDT [facility] [address] [place] [address] Sahil Iyer MD Metastatic malignant neuroendocrine tumor to liver (HCC) (Primary Dx); Neuroendocrine cancer (HCC) Discharge Disposition: Discharged to home or Selfcare 10/27/2024 Travel 10/24/2024 Travel 10/20/[address] [phone] Osito Hong APRN, JARRETT Form Completion 10/18/2024 [facility]ill [facility] [place] [address] Osito Hong APRN, JARRETT Medication Refill 10/17/2024 Telephone [facility] [address] [place] [address] Sahil Iyer MD from Last 3 Months Immunizations Immunization Administration Dates Next Due Influenza Seasonal, Intrader mal, Preservative Free 04/28/2017,03/31/2016 Influenza Vaccine, Quadrivalent, PF 12/0 01/2023,04/30/2022,04/29/2021,09/11,03/31/2016 Influenza, Recombinant, Quadrivalent,injectable, Pf 04/03/2019,07/20/2018 Influenza,Split Virus,Trivalent,Injectable,PF 03/29/2024 Pneumococcal Vaccine - 13 Valent 09/01/2021 Pneumococcal Vaccine Adult - 23 Valent 9 Pneumococcal conjugate PCV20 , polysaccharide OUW010 conjugate, adjuvant, PF 07/26/2024 TDAP Vaccine 05/20/2017 Family History Medical History Relation Name Comments Lung Cancer Brother 1 Prostate Cancer Brother 2 Hypertension Daughter Hypertension Father Lung Cancer Father No Known Problems Maternal Grandfather Cancer Maternal Grandmother Bone Asthma Mother Diabetes Mother High Cholesterol Mother Hypertension Mother Rheumatoid Arthritis Mother Stroke Mother Breast Cancer Paternal Aunt paternal half sister diagnosed with breast cancer in 60s Cancer Paternal Aunt No Known Problems Paternal Grandfather Breast Cancer Paternal Grandmother diagno sed later in life Cancer Paternal Grandmother Thyroid Disease Sister 1 Rheumatoid Arthritis Sister 2 Asthma Son 1 No Known Problems Son 2 Relation Name Status Comments Brother 1 Brother 2 Alive Daughter Alive Father Maternal Grandfather Maternal Grandmother Mother Paternal Aunt Paternal Grandfather Paternal Grandmother Sister 1 Alive Sister 2 Alive Son 1 Son 2 Alive Social History Tobacco Use Types Packs/Day Years Used Date Smoking Tobacco: Former Cigarettes 0.5 54.3 1 971 - 11/09/2024 Smokeless Tobacco: Never Tobacco Cessation:Counseling Given: Not Answered Alcohol Use Standard Drinks/Week Comments Not Currently 0 (1 standard drink = 0.6 oz pur e alcohol) Rare [employer] Answer Date Recorded In the past 12 months has [employer], gas, oil, or water [employer] threatened to shut off services in your home? Patient declined 09/08/2024 Social Connection and Isolation Panel Answer Date Recorded In a typical week, how many times do you talk on the phone with family, friends, or neighbors? Patient declined 09/08/2024 How often do you get togethe r with friends or relatives? Patient declined 09/08/2024 How often do you attend christianity or confucianism serv ices? Patient declined 09/08/2024 Do you belong to any clubs o r organizations such as christianity groups, unions, fraternal or athletic groups, or school groups? Patient declined 09/08/2024 How often do you attend meet ings of the clubs or organizations you belong to? Patient declined 09/08/2024 Are you , , di vorced, , never , or living with a partner? Patient declined 09/08/2024 AUDIT-C Answer Date Recorded Q1: How often do you have a drink containing alc ohol? Patient declined 09/08/2024 Q2: How many drinks containi ng alcohol do you have on a typical day when you are drinking? Patient declined 09/08/2024 Q3: How often do you have si x or more drinks on one occasion? Patient declined 09/08/2024 Overall Financial Resource Strain (CARDIA) Answe r Date Recorded How hard is it for you to pa y for the very basics like food, housing, medical care, and heating? Patient declined 09/08/2024 PHQ-2 Answer Date Recorded Total Score - Questions 1-9 0 07/12 [facility] Occupat ional [facility] - Occupational Stress Questionnaire Answer Date Recorded Do you feel stress - tense, restless, nervous, or anxious, or unable to sleep at night because your mind is troubled all the time - these days? Patient declined 09/08/2024 Exercise Vital Sign Answer Date Recorde d On average, how many days pe r week do you engage in moderate to strenuous exercise (like a brisk walk)? Patient declined On average, how many minutes do you engage in exercise at this level? Patient declined 09/08/2024 Hunger Vital Sign Answer Date Recorded Within the past 12 months, y ou worried that your food would run out before you got the money to buy more. Patient declined Within the past 12 months, t he food you bought just didn't last and you didn't have money to get more. Patient declined PRAPARE - Transportation Answer Date Re corded In the past 12 months, has l ack of transportation kept you from medical appointments or from getting medications? Patient declined 09/08/2024 In the past 12 months, has l ack of transportation kept you from meetings, work, or from getting things needed for daily living? Patient declined 09/08/2024 Housing Stability Vital Sign Answer Oscar e Recorded In the last 12 months, was t here a time when you were not able to pay the mortgage or rent on time? Patient declined 09/08/19 25 In the past 12 months, how m any times have you moved where you were living? 0 09/08/2024 At any time in the past 12 m [facility], were you homeless or living in a long term (including now)? 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 HELPER Sexual Orientation Not on file Last Filed Vital Signs Vital Sign Reading Time Taken Comments Blood Pressure 167/95 12/27/2024 10:39 AM CDT Pulse 79 12/27/2024 10:39 AM CDT Temperature 37.1 C (98.7 F) 12/27/2024 10:39 AM CDT Respiratory Rate 18 12/27/2024 10:39 AM CDT Oxygen Saturation 97% 12/27/2024 10:39 AM CDT Inhaled Oxygen Concentration - - Weight 96.3 kg (212 lb 3.2 oz) 12/27/2024 10:39 AM CDT Height 162.6 cm (5' 4) 12/27/2024 10:39 AM CDT Body Mass Index 36.42 12/27/2024 10:39 AM CDT Plan of Treatment Upcoming Encounters Date Type Department Care Team (Latest Contact Info) Description 01/24/2025 10:30 AM CDT Clinical Support [facility] Oncology Services [address] [place] [address] Sahil Iyer MD [address] [place] [address] Discharge Disposition: Discharged to home or Selfcare 02/12/2025 10:00 AM CDT Office Visit [facility] - Endocrinology - [place] [address] [place] [address] Kirill Gil MD [address] [phone] 02/21/2025 10:30 AM CDT Clinical Support [facility] Oncology Services [address] [place] [address] Sahil Iyer MD [address] [place] [address] Discharge Disposition: Discharged to home or Selfcare 03/01/2025 9:00 AM CDT [facility] [address] [place] [phone] Sahil Iyer MD [address] [place] [address] Discharge Disposition: Discharged to home or Selfcare 03/26/2025 10:45 AM CDT Office Visit [facility] [place] [address] Osito Hong APRN, [facility] [address] [address] 04/03/2025 9:00 AM CDT [facility] [address] [place] [address] Alex Ahumada MD [address] [place] [address] Discharge Disposition: Discharged to home or Selfcare Health Maintenance Due Date Last Done Comments Zoster Immunization (1 of 2) 1981 Cologuard 2007 Immunochemical Fecal Occult Blood 2007 Respiratory Syncytial Virus (RSV) Immunization (Adult) (1 - Risk 60-74 years 1-dose series) 2022 Diabetes: Eye Exam 08/24/2024 08/24/2023, 02/19/2022 Lung Cancer Screening 11/28/2024 11/29/2023 , 10/31/2019, 10/31/2019, Additional history exists Influenza Immunization (#1) 03/12/202503/12, 06/17/2023, 04/30/2022, Additional history exists Diabetes: Hemoglobin A1c 05/13/2025 025, 07/26/2024, 03/29/2024, Additional history exists Mammogram 05/31/2025 05/31/2024, 03/12, 01/14/2023, Additional history exists Diabetes: Foot Exam 11/10/2025 11/10/2024, Diabetes: Nephropathy Screening 12/26/2025 12/26/2024, 11/23/2024, 10/24/2024, Additional history exists Td Immunization Every 10 Years (Adults With 1 Tdap) 05/20/2027 05/20/2017 Colonoscopy 01/07/2028 01/06/2018 Colorectal Cancer Screening 01/07/2028 DTaP/Tdap/Td Immunization Discontinued 05/20/2017 Hepatitis C Virus (HCV) Screening Discontinued 05/31/2017, 05/05/2017 SARS-COV-2 Immunization Discontinued 08/08/19 22, 11/20/2020, 10/30/2020 Pneumococcal Immunization (50+ years) Completed 07/26/2024, 09/01/2021, 07/20/2018 Pneumococcal Immunization Combined Discontinued 07/26/2024, 09/01/2021, 07/20/2018 Hepatitis B Immunization Aged Out No longer eligible based on patient's age to complete this topic Human Papillomavirus (HPV) Immunization Aged Out No longer eligible based on patient's age to complete this topic Meningococcal Immunization (ACWY) Aged Out No longer eligible based on patient's age to complete this topic Rotavirus Immunization Aged Out No lo nger eligible based on patient's age to complete this topic Procedures Procedure Name Priority Date/Time Associated Diagnosis Comments CBC WITH AUTO DIFFERENTIAL Routine 12/26/2024 10:49 AM CDT Metastatic malignant neuroendocrine tumor to liver (HCC) COMPLETE BLOOD COUNT (CBC) WITH DIFF Routine 12/26/2024 10:49 AM CDT Metastatic malignant neuroendocrine tumor to liver (HCC) CMP (COMPREHENSIVE METABOLIC PANEL) Routine 12/26/2024 10:49 AM CDT Metastatic malignant neuroendocrine tumor to liver (HCC) CBC WITH AUTO DIFFERENTIAL Routine 11/23/2024 9:16 AM CDT Metastatic malignant neuroendocrine tumor to liver (HCC) COMPLETE BLOOD COUNT (CBC) WITH DIFF Routine 11/23/2024 9:16 AM CDT Metastatic malignant neuroendocrine tumor to liver (HCC) CMP (COMPREHENSIVE METABOLIC PANEL) Routine 11/23/2024 9:16 AM CDT Metastatic malignant neuroendocrine tumor to liver (HCC) POCT GLYCOSYLATED HEMOGLOBIN Routine 11/10/2024 8:50 AM CDT Type 2 diabetes mellitus with diabetic nephropathy, with long-term current use of insulin (HCC) PAIN CONSULT 10/31/2024 12:00 AM CDT CBC WITH AUTO DIFFERENTIAL Routine 10/24/2024 12:09 PM CDT Metastatic malignant neuroendocrine tumor to liver (HCC) COMPLETE BLOOD COUNT (CBC) WITH DIFF Routine 10/24/2024 12:09 PM CDT Metastatic malignant neuroendocrine tumor to liver (HCC) CMP (COMPREHENSIVE METABOLIC PANEL) Routine 10/24/2024 12:09 PM CDT Metastatic malignant neuroendocrine tumor to liver (HCC) MAMMOGRAM BILATERAL GENERIC 05/31/2024 12:00 AM CIRCULAR SAWYER HELPER EXTERNAL PODIATRY REFERRAL Routine 05/08/2024 12:00 AM CDT Toenail deformity from Last 3 Months or Most Recently Relevant to Health Maintenance Results * (ABNORMAL) CBC WITH AUTO DIFFERENTIAL (12/26/2024 10:49 AM CDT) Only the most recent of3 resultswithin the time period is included. WBC 8.37 4.00 - 12.00 10(3)/mcL 12/26/2024 11:07 AM CDT [facility] RBC 4.07 3.80 - 5.30 10(6)/mcL 12/26/2024 11:07 AM CDT [facility] HEMOGLOBIN (HGB) 10.7(L) 12.0 - 15.8 g/dL 12/26/2024 11:07 AM CDT [facility] HEMATOCRIT (HCT) 34.3(L) 36.0 - 47.0 % 12/26/2024 11:07 AM CDT [facility] MCV 84.3 82.0 - 96.0 fL 12/26/2024 11:07 AM CDT [facility] MCH 26.3 26.0 - 34.0 pg 12/26/2024 11:07 AM CDT [facility] MCHC 31.2 31.0 - 36.0 g/dL 12/26/2024 11:07 AM CDT [facility] PLATELET COUNT 267 140 - 440 10(3)/mcL 12/26/2024 11:07 AM CDT [facility] RDW 16.6(H) 11.8 - 15.5 % 12/26/2024 11:07 AM CDT [facility] MPV 9.7 9.7 - 12.4 fL 12/26/2024 11:07 AM CDT [facility] NEUTROPHILS 75.3(H) 47.0 - 73.0 % 12/26/2024 11:07 AM CDT [facility] LYMPHOCYTES 12.4(L) 18.0 - 42.0 % 12/26/2024 11:07 AM CDT [facility] MONOCYTES 8.2 4.0 - 12.0 % 12/26/2024 11:07 AM CDT [facility] EOSINOPHILS 3.0 0.0 - 5.0 % 12/26/2024 11:07 AM CDT [facility] BASOPHILS 0.6 0.0 - 1.0 % 12/26/2024 11:07 AM CDT [facility] IMMATURE GRANULOCYTE 0.5(H) 0.0 - 0.4 % 12/26/2024 11:07 AM CDT [facility] Comment:Immature Granulocyte s includes Metamyelocytes, Myelocytes, and Promyelocytes. ABSOLUTE NEUTROPHILS 6.30 1.60 - 7.70 10(3)/mcL 12/26/2024 11:07 AM CDT [facility] ABSOLUTE LYMPHOCYTES 1.04(L) 1.30 - 3.20 10(3)/mcL 12/26/2024 11:07 AM CDT [facility] ABSOLUTE MONOCYTES 0.69 0.20 - 1.00 10(3)/[facility] 12/26/2024 11:07 AM CDT [facility] ABSOLUTE EOSINOPHIL 0.25 0.00 - 0.40 10(3)/[facility] 12/26/2024 11:07 AM CDT [facility] ABSOLUTE BASOPHILS 0.05 0.00 - 0.10 10(3)/[facility] 12/26/2024 11:07 AM CDT [facility] ABSOLUTE IMMATURE GRANULOCYTE 0.04(H) 0.00 - 0.03 10 (3) [facility]. 12/26/2024 11:07 AM CDT [facility] NRBC PER 100 WBC 0 12/27/19 11:07 AM CDT [facility] Blood Venipuncture / Unknown 12/26/2024 10:49 AM CDT 12/26/2024 11:03 AM CDT us Sahil Iyer MD HEMATOLOGY ORDERABLES Fi nal Result [facility] [address] [place] [address] * (ABNORMAL) CMP (COMPREHENSIVE METABOLIC PANEL) (12/26/2024 10:49 AM CDT) Only the most recent of3 resultswithin the time period is included. SODIUM 142 136 - 145 mmol/L 12/26/2024 11:32 AM CDT [facility] POTASSIUM 3.8 3.5 - 5.1 mmol/L 12/26/2024 11:32 AM CDT [facility] CHLORIDE 103 98 - 107 mmol/L 12/26/2024 11:32 AM CDT [facility] CO2, VENOUS 31(H) 22 - 30 mmol/L 12/26/2024 11:32 AM CDT [facility] ANION GAP 11.8 <18.0 mmol/L 12/26/2024 11:32 AM [facility] GLUCOSE 151(H) 70 - 99 mg/dL 12/26/2024 11:32 AM T [facility] BUN 25(H) 10 - 20 mg/dL 12/26/2024 11:32 AM [facility] CREATININE, BLOOD 1.13(H) 0.60 - 1.00 mg/dL 12/26/2024 11:32 AM [facility] BUN/CREATININE RATIO 22(H) 12 - 20 ratio 12/26/2024 11:32 AM [facility] TOTAL PROTEIN 6.9 6.0 - 8.0 g/dL 12/26/2024 11:32 AM [facility] ALBUMIN 3.9 3.5 - 5.0 g/dL 12/26/2024 11:32 AM [facility] A/G RATIO 1.3 1.0 - 2.2 12/26/2024 11:32 AM [facility] CALCIUM 9.1 8.7 - 10.5 mg/dL 12/26/2024 11:32 AM [facility] T BILI 0.4 0.2 - 1.2 mg/dL 12/26/2024 11:32 AM [facility] SGOT (AST) 19 <43 U/L 12/26/2024 11:32 AM [facility] SGPT (ALT) 15 <56 U/L 12/26/2024 11:32 AM [facility] ALKALINE PHOSPHATASE 67 40 - 150 U/L 12/26/2024 11:32 AM [facility] IS THE PATIENT REQUIRED TO BE FASTING? No 12/26/2024 11:32 AM [facility] GFR, ESTIMATED 55(L) >=60 12/26/2024 11:32 AM [facility] Comment: Creatinine Clearance is the preferred criteria for selecting drug dose adjustments in renally impaired patients. The GFR is provided as additional pertinent clinical information. GFR is reported in mL/min/1.73 sq m. Calculation based on the Chronic Kidney Disease Epidemiology Collaboration (CKD- EPI) equation refit without adjustment for race. GFR, EST. 59(L) >=60 025 11:32 AM CDT [facility] GFR, EST. NONAFRICAN 49(L) >=60 12/26/2024 11:32 AM CDT [facility] Blood Venipuncture / Unknown 12/26/2024 10:49 AM CDT 12/26/2024 11:03 AM CDT Sahil Iyer MD CHEMISTRY ORDERABLES Fin al Result Performing Organization Address City/[facility] Co de Phone Number [facility] [address] [place] [address] * (ABNORMAL) POCT GLYCOSYLATED HEMOGLOBIN (11/10/2024 8:50 AM CDT) HGB-A1C 7.8(A) 4 - 6 % Blood 11/10/2024 8:50 AM CDT us Kirill Gil MD POINT OF CARE TESTING (MANUAL) F inal Result * PAIN CONSULT (10/31/2024 12:00 AM CDT) 10/31/2024 Sahil Iyer MD GENERIC SCAN ORDERS CONS ULT Final Result Performing Organization Address City/[facility]/ZIP Co de Phone Number SCAN * MAMMOGRAM BILATERAL MISCELLANEOUS (05/31/2024 12:00 AM CIRCULAR SAWYER HELPER) 05/31/2024 Provider Scan IMG MAMMO ORDERABLES Final Resul t Performing Organization Address City/[facility]/ZIP Co de Phone Number SCAN * EXTERNAL PODIATRY REFERRAL (05/08/2024 12:00 AM CDT) 05/08/2024 us Antonio Rendon MD OUTPT REFERRALS EXT/INT Final Re sult SCAN from Last 3 Months or Most Recently Relevant to Health Maintenance Insurance MEDICARE C [employer] 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
--- OUTSIDE RECORDS SUMMARY | 2025-01-14 15:26 | XMS_ITS | Clinical Summary ---
Author Organization [facility] Address [address] [place] [address] Care Team Providers Care Airport Clerk Name Role Phone Jennifer Mccoy RN Unavailable [phone] Fany Archuleta APRN-[employer]NAGER Unavailable [phone] Ondina Brannon EEG TECH Unavailable Jimmie Hampton MD Unavailable Source Comments [facility],non-owned Affiliates and Associated Physician Practices is amultiple site organization consisting of ambulatory clinics and hospital sitesin [place], [place], [place]. This disclosure is being madepursuant to the Care Everywhere program and may not contain all information available regarding this patient. Last updated 18.[facility] Allergies Active Allergy Reactions Criticality Noted Date Comments Fentanyl Other 01/04/2018 I breakout in a sweat Gadobenate Urticaria Medium 08/11/2017 Patient got hives from multihance Hmg-Coa-R Inhibitors Myalgias 06/10/2018 Contrast-Iodinated Agents For Ct/Other Nausea and/or Vomiting Medium 04/26/2011 Lisinopril Cough 10/31/2012 Oxycodone Itching High 04/28/2018 Penicillins Rash Low 04/26/2011 Vancomycin Urticaria Medium 10/20/2017 Medications * Be aware that medications may not be up to date on this document. Alwaysverify current medications with the patient. multivitamin daily (THERAGRAN) tablet Take 1 Tab by mouth daily with food Active Blood Glucose Monitoring Suppl KIT Use 1 kit as directed 02/04/20 17 Active NOVOLOG FLEXPEN pen Inject 2-12 Units subcutaneously 3 times daily Per sliding scale as directed 2 05/10/20 17 Active Alcohol Swabs (B-D SINGLE USE SWABS REGULAR)Indicati ons:Malignant carcinoid tumor of ileum (HCC) 1 SWAB BY DOES NOT APPLY ROUTE 4 TIMES DAILY NEEDED. 11 06/17/20 17 Active albuterol HFA (PROVENTIL;SHELDON TWIN;PROAIR) 108 (90 BASE) MCG/ACT inhaler Inhale 2 puffs by mouth every 4 hours as needed for Shortness of Breath or Wheezing 1 Inhaler 1 10/25/19 18 Active ondansetron (ZOFRAN) 8 MG tablet Take 1 tablet by mouth every 6 hours as needed for Nausea/Vomiting 03/21/20 18 Active cloNIDine (CATAPRES) 0.1 MG tabletIndication s:Malignant carcinoid tumor of ileum (HCC),Essential hypertension Take 1 tablet by mouth 2 times daily as needed (if SBP >150 PRN) 30 tablet 04/28/20 18 Active pen needles 11/24 31G X 8 MM 31G X 8 MM Use 1 Units as directed 100 Each 1 05/27/20 18 Active blood glucose test strip Use 1 strip as directed 100 strip 1 05/27/20 18 Active insulin isophane & Reg, human, 70/30 (NOVOLIN 70/30 FLEXPEN) penIndications:T ype 2 Diabetes Mellitus Inject 30 Units subcutaneously 2 times daily,before breakfast and supper Reasons: Type 2 Diabetes 1 Box 3 06/10/20 18 Active potassium chloride (KLOR-CON M10) 10 MEQ tabletIndication s:Hypokalemia Take 2 tablets by mouth once daily Reasons: Low Amount of Potassium in the Blood 60 tablet 5 06/10/20 18 Active ferrous sulfate 325 (65 FE) MG tablet Take 1 tablet by mouth 2 times daily with morning and evening meal Taking intermittently. 60 tablet 3 07/18/19 19 Active ACCU-CHEK FASTCLIX LANCETS Use 1 Units as directed 100 Each 1 07/20/19 19 Active methocarbamol (ROBAXIN) 750 MG tablet Take 750 mg by mouth every 8 hours as needed for Muscle Spasms Active gabapentin (NEURONTIN) 300 MG capsule Take 300 mg by mouth 2 times daily after meals Active NIFEdipine CR osmotic 24hr (PROCARDIA-XL) 60 MG tablet Take 1 tablet by mouth once daily 60 tablet 5 11/30/19 19 Active metFORMIN ER 24hr (GLUCOPHAGE XR) 500 MG tablet Take two tablets by mouth twice a day. 360 tablet 1 02/03/20 Active meloxicam (MOBIC) 15 MG tablet Take 15 mg by mouth once daily 1 01/20/20 Active Continuous Blood Gluc Sales Representative Jewelry (FREESTYLE HANNAH READER) DEVIIndications: Type 2 diabetes mellitus with hyperglycemia, with long-term current use of insulin (HCC) Use 1 Units 2 times daily 1 device 04/03/20 Active Continuous Blood Gluc Sensor (FREESTYLE HANNAH 14 DAY SENSOR) MISCIndications: Type 2 diabetes mellitus with hyperglycemia, with long-term current use of insulin (HCC) Use 30 Units 2 times daily 1 Each 1 04/03/20 19 Active hydroCHLOROthiaz randy (HYDRODIURIL) 25 MG tablet Take 1 tablet by mouth once daily 90 tablet 09/13/19 20 Active Active Problems Problem Noted Date Diagnosed [...] diet Assessment & Plan (07/21/2018 1:13 PM BOILER CLEANER): Continue same plan for htn Dash diet [...] numbers. I gave her script for freestyle hannah check blood glucose before taking insulin Advised her low blood glucose levels Are fatal I have counseled patient about the need for tight glycemic control and the long winder tender complications of diabetes. Also counseled patient about the need to carbohydrate intake to less than 200 g per day. Counseled patient about the long-term complications of uncontrolled diabetes including kidney failure leading to dialysis, cardiovascular accidents, neuropathy and angiopathy leading to loss of limbs, loss of vision she will make an appointment with meat washer Assessment & Plan (11/29/2018 8:55 PM CDT): a1c improved Continue same dose of novolin I have counseled patient about the need for tight glycemic control and the half-way complications of diabetes. Also counseled patient about the need to carbohydrate intake to less than 200 g per day. Counseled patient about the long-term complications of uncontrolled diabetes including kidney failure leading to dialysis, cardiovascular accidents, neuropathy and angiopathy leading to loss of limbs, loss of vision Assessment & Plan (07/21/2018 1:12 PM BOILER CLEANER): a1c has improved. Continue same plan for now Advised her to be compliant with meds I have counseled patient about the need for tight glycemic control and the half-way complications of diabetes. Also counseled patient about [...] of terminal ileum with metastatic liver disease. Resolved Problems Problem Noted Date Diagnosed Date Resolved Date Other chest pain 04/29/2017 10/26/2017 UTI (urinary tract infection) 08/27/2016 09/10/2016 Cough 09/26/2011 10/26/2017 Chest pain, pleuritic 09/26/20112017 Immunizations Immunization Administration Dates Next Due INFLUENZA VACCINE, QUADR. (F LUZONE; FLULAVAL; FLUARIX; AFLURIA QUADRIVALENT; 6MO+), 0.5 ML (IIV4) 03/31/2016 Influenza Intradermal 04/28/2017,03/31/2016 PNEUMOCOCCAL PPSV23 07/20/2018 TDAP (7yrs+) 05/20/2017 iNFLUENZA VACCINE, RECOM-MCCULLOUGH, QUADR. (FLUBLOCK QUADRIVALENT; 18Y+) (RIV4) 04/03/2019,07/20/2018 Family History Medical History Relation Name Comments Diabetes - Type 1 Brother 1 Hypertension Brother 1 Cancer - Lung Brother 2 Cancer - Lung Father Hypertension Father Arthritis - Osteo Mother Depression Mother Hypertension Mother Cancer - Breast Other halfsister Arthritis - Osteo Sister 1 Thyroid Disease Sister 2 Relation Name Status Comments Brother 1 Alive Brother 2 Alive Father Mother Other halfsister Alive Sister 1 Alive Sister 2 Alive Social History Tobacco Use Types Packs/Day Years Used Date Smoking Tobacco: Former Cigarettes 0.3 41 Smokeless Tobacco: Never Tobacco Cessation:Ready to Q uit: No; Counseling Given: No Comments:social smoker only Alcohol Use Standard Drinks/Week Comments No 0 (1 standard drink = 0.6 oz pur e alcohol) Comments No Sex and Gender Information Value Date Recorded Sex Assigned at Not on file Legal Sex Female 5:10 AM BOILER CLEANER Gender Identity Not on file Sexual Orientation Not on file Occupation Industry Job Start Date Job End Date Disabled Not on file Not on file Not on file unemployed Not on file 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 Not on file Not on file Not on file Last Filed Vital Signs Vital Sign Reading Time Taken Comments Blood Pressure 120/78 04/03/2019 11:15 AM CDT Pulse 76 04/03/2019 11:15 AM CDT Temperature 37.3 C (99.2 F) 04/03/2019 11:15 AM CDT Respiratory Rate 18 04/03/2019 11:1 5 AM CDT Oxygen Saturation 95% 04/03/2019 11: 15 AM CDT Inhaled Oxygen Concentration - - Weight 95.6 kg (210 lb 12.8 oz) 019 11:15 AM CDT Height 165.1 cm (5' 5) 04/03/2019 11:1 5 AM CDT Body Mass Index 35.08 04/03/2019 11:15 AM CDT Plan of Treatment Health Maintenance Due Date Last Done Comments COLOGUARD (AGES 45-75) - COLON CA SCREENING 1960 CT COLONOGRAPHY - COLON CA SCREENING 1960 FIT - COLON CA SCREENING 1960 FLEX SIG - COLON CA SCREENING 1960 HIV SCREENING 1977 ZOSTER VACCINE (1 of 2) 2012 PNEUMOCOCCAL VACCINE 50+ (2 of 2 - PCV) 07/20/2019 07/20/2018 DIABETES-FOOT EXAM WITH MONOFILAMENT 04/03/2020 04/03/2019, 04/03/2019, 03/16/2018, Additional history exists MAMMOGRAM 07/19/2020 07/19/2018 DIABETES RETINOPATHY SCREENING 04/11/2021 04/11/2019, 04/11/2019, 04/18/2018, Additional history exists DIABETES-HGB A1C 10/28/2021 04/29/2021, , 08/22/2019, Additional history exists Respiratory Syncytial Virus (RSV) Vaccine Pt: or over 60 yrs (1 - Risk 60-74 years 1-dose series) 2022 DIABETES-SERUM CREATININE 06/01/20232021, 06/01/2022, 05/04/2022, Additional history exists COVID-19 VACCINE ( season) 2024 08/08/2021, 11/20/2020, 10/30/2020 DEPRESSION SCREENING 07/12/2024 DIABETES - URINE PROTEIN SCREENING 07/12/2024 12/02/2018, 05/20/2017 MEDICARE AWV CALENDAR YEAR 2024 INFLUENZA VACCINE (Season Ended) 2025 04/30/2022, 04/29/2021, 09/11/2020, Additional history exists DTAP/TDAP/TD VACCINES (2 - Td or Tdap) 05/20/2027 05/20/2017 COLON MONITORING 01/05/2028 01/04/2018, 01/04/2018 COLONOSCOPY - COLON CA SCREENING 01/05/2028 01/04/2018, 01/04/2018 Colorectal Cancer Screening 01/05/2028 HEPATITIS C SCREENING Completed 05/31/2017, 017 DIABETES-STATIN Completed 06/10/2018 HEPATITIS B VACCINE Aged Out No longe r eligible based on patient's age to complete this topic HIB VACCINE Aged Out No longer eligi ble based on patient's age to complete this topic HPV VACCINE Aged Out No longer eligi ble based on patient's age to complete this topic MENINGOCOCCAL (Group B) VACCINE SHARED DECISION-MAKING Aged Out No longer eligible based on patient's age to complete this topic MENINGOCOCCAL GROUPS A/C/Y/W VACCINE Aged Out No longer eligible based on patient's age to complete this topic Medical Devices Implanted Type Area Maintenance Truck Driver Device Identifier Shelf Expiration Date Model / Serial / Lot Coil Azur Cx Hdrcl 2cm 2mm Dtch Loop Sld Implanted:Qty: 1 on 03/25/2018 at [facility] Right: [employer] 10/09/2022 [id number] / / [id number] Description:Implanted in the right adrenal artery by Dr. Kwan. Procedures Procedure Name Priority Date/Time Associated Diagnosis Comments HEMOGLOBIN A1C - POINT OF CARE (AMB) Routine 04/03/2019 Type 2 diabetes mellitus with hyperglycemia, with long-term current use of insulin MICROALB/CREAT RATIO URINE RANDOM PANEL Routine 12/02/2018 3:28 PM CDT Type 2 diabetes mellitus with hyperglycemia, with long-term current use of insulin MAMMO BILAT SCREENING Routine 07/19/2018 3:01 PM BOILER CLEANER Screening for breast cancer COMPREHENSIVE METABOLIC PANEL Routine 06/28/2018 9:59 AM BOILER CLEANER Malignant carcinoid tumor of ileum ENDOSCOPY, COLON, SCREENING Routine 01/04/2018 8:05 AM CDT HEPATITIS SCREEN ACUTE Routine 7 8:52 AM BOILER CLEANER Cough Chest pain, pleuritic Malignant carcinoid tumor of ileum Other chest pain Hypokalemia from Last 3 Months or Most Recently Relevant to Health Maintenance Results * HEMOGLOBIN A1C - POINT OF CARE (AMB) (04/03/2019) Hemoglobin A1c POCT 7.8 % Expiration Date 12/20/2020 Lot # [id number] QC Verified Yes Yes Blood BLOOD SPECIMEN / Unknown 04/03/2019 Sebastian Perez MD LAB - POINT OF CARE ORDERABLE S Final Result * MICROALB/CREAT RATIO URINE RANDOM PANEL (12/02/2018 3:28 PM CDT) Creatinine Urine 293.8 Not Estab. mg/dL [facility] ACCOUNT BILL Microalbumin Urine 84.7 Not Estab. ug/mL [facility] ACCOUNT BILL Microalbumin/Crea tinine Ratio 28.8 0.0 - 30.0 mg/g creat [facility] ACCOUNT BILL Comment: Normal: 0.0 - 30.0 Albuminuria: 31.0 - 300.0 Clinical albuminuria: >300.0 Urine URINE SPECIMEN OBTAINED BY CLEAN CATCH PROCEDURE / Unknown 12/02/2018 3:28 PM CDT 12/02/2018 Narrative Resulting Agency Comment Lab Testing performed at: [facility] [address] [id number] us Sebastian Perez MD LAB - URINE CHEMISTRY ORDERAB LES Final Result [facility] ACCOUNT BILL [address] [place] [address] * MAMMO BILAT SCREENING (07/19/2018 3:01 PM BOILER CLEANER) Anatomical Region Laterality Modality Breast Bilateral Mammography 07/20/2018 1:59 PM BOILER CLEANER Narrative 07/20/2018 3:08 PM BOILER CLEANER EXAMINATION: Digital screening mammogram on 07/19/2018. Full-field digital breast mammographic examination was performed with 2D images. Computer assisted detection was utilized. PRIOR: This exam has just been made available for interpretation. Prior exams requested but not available from [facility]. BREAST PARENCHYMAL DENSITY: The breasts are heterogeneously dense, which may obscure small masses. RISK ASSESSMENT CALCULATION: Not performed. FINDINGS: Questioned 1 cm nodular asymmetry in the upper posterior left breast, 11 cm posterior to the nipple. Nodularity throughout the left breast. Benign-appearing calcifications are identified in the breasts bilaterally. No suspicious masses, areas of architectural distortion or microcalcifications are evident on 2D mammographic images of the right breast. ASSESSMENT: BIRADS Category 0: Incomplete - Needs additional imaging evaluation. RECOMMENDATION: Diagnostic left breast mammogram and possible ultrasound. Thank you for allowing us to participate in the care of your patient. [facility] Breast [facility] utilizes [employer] as a reminder system to notify patients of their next recommended mammogram. I, Gauri Hill, have personally reviewed the images and I agree with this report. Reading Radiologist: Gauri Hill MD on 07/20/2018 at 3:08 PM us Sebastian Perez MD MAMMO ORDERABLES Final Result * (ABNORMAL) COMPREHENSIVE METABOLIC PANEL (06/28/2018 9:59 AM BOILER CLEANER) Glucose 258(H) 74 - 106 mg/dL [facility] INSURANCE BILL BUN 31(H) 7 - 21 mg/dL [facility] INSURANCE BILL Creatinine 1.00 0.50 - 1.30 mg/dL [facility] INSURANCE BILL eGFR by MDRD 57(L) >60 mL/min/1.7 3m2 [facility] INSURANCE BILL eGFR by MDRD >60 >60 mL/min/1.7 3m2 [facility] INSURANCE BILL Sodium 141 136 - 145 mmol/L [facility] INSURANCE BILL Potassium 3.3(L) 3.5 - 5.1 mmol/L [facility] INSURANCE BILL Chloride 100 98 - 107 mmol/L [facility] INSURANCE BILL CO2 32(H) 22 - 31 mmol/L [facility] INSURANCE BILL Calcium 8.9 8.5 - 10.1 mg/dL [facility] INSURANCE BILL Protein Total 6.7 6.4 - 8.2 gm/dL [facility] INSURANCE BILL Albumin 3.6 3.4 - 5.0 gm/dL [facility] INSURANCE BILL Bilirubin Total 0.4 0.2 - 1.0 mg/dL [facility] INSURANCE BILL Alkaline Phosphatase 96 38 - 126 U/L [facility] INSURANCE BILL AST 20 5 - 40 U/L [facility] INSURANCE BILL ALT 34 13 - 61 U/L [facility] INSURANCE BILL Blood BLOOD SPECIMEN / Unknown 06/28/2018 9:59 AM BOILER CLEANER 06/28/2018 Narrative Resulting Agency Comment [address] [id number] Chelita Tucker MD LAB - CHEMISTRY ORDERABLES Fin al Result [facility] INSURANCE BILL [address] [place] [address] * ENDOSCOPY, COLON, SCREENING (01/04/2018 8:05 AM CDT) Report Endoscopy POC Endoscopy Department Report _ Patient Name: Melody Clearyory Procedure Date: 01/04/2018 8:05 AM Date of : 1960 Classification: Outpatient Gender: Female _ Providers: Lisa Rolon MD, Mikaela Harris (Fellow) Referring MD: Procedure: Colonoscopy Indications: Screening for colorectal malignant neoplasm Medications: Monitored Anesthesia Care Comorbidities carcinoid tumor Patient Profile: 57 year old female with h/o carcinoid tumor s/p R hemicolectomy. Description of Procedure: Pre-Anesthesia Assessment: - Prior to the procedure, a History and Physical was performed, and patient medications and allergies were reviewed. The patient's tolerance of previous anesthesia was also reviewed. The risks and benefits of the procedure and the sedation options and risks were discussed with the patient. All questions were answered, and informed consent was obtained. Prior Anticoagulants: The patient has taken no previous anticoagulant or antiplatelet agents. ASA Grade Assessment: II - A patient with mild systemic disease. After reviewing the risks and benefits, the patient was deemed in satisfactory condition to undergo the procedure. After I obtained informed consent, the scope was passed under direct vision. Throughout the procedure, the patient's blood pressure, pulse, and oxygen saturations were monitored continuously. The colonoscopy was performed without difficulty. The patient tolerated the procedure well. The colonoscopy was performed without difficulty. The patient tolerated the procedure well. The quality of the bowel preparation was good. The terminal ileum, ileocecal valve, appendiceal orifice, and rectum were photographed. Findings: The perianal and digital rectal examinations were normal. Multiple small and large-mouthed diverticula were found in the sigmoid colon, descending colon and transverse colon. Surgical anastamosis appeared healthy, likely end to side anastamosis. The retroflexed view of the distal rectum and anal verge was normal and showed no anal or rectal abnormalities. Estimated Blood Loss: Estimated blood loss: none. Complications: No immediate complications. Impression: - Diverticulosis in the sigmoid colon, in the descending colon and in the transverse colon. - The distal rectum and anal verge are normal on retroflexion view. - Surgical anastamosis appeared healthy, likely end to side anastamosis. - No specimens collected. Recommendation: - Patient has a contact number available for emergencies. The signs and symptoms of potential delayed complications were discussed with the patient. Return to normal activities tomorrow. Written discharge instructions were provided to the patient. - Resume previous diet. - Continue present medications. - Repeat colonoscopy in 10 years for surveillance. - Return to primary care physician as previously scheduled. Diagnosis Code(s): --- Professional --- Z12.11, Encounter for screening for malignant neoplasm of colon K57.30, Diverticulosis of large intestine without perforation or abscess without bleeding Lisa Rolon MD 01/04/2018 8:54:19 AM This report has been signed electronically. Note Initiated On: 01/04/2018 8:05 AM Number of Addenda: [address] [place] [address] _ Addendum Number: 1 Addendum Date: 01/07/2018 9:14:40 AM The scope was inserted through the anus into the rectum and the entire colon was examined into the cecum. Lisa Rolon MD 01/07/2018 9:15:25 AM This report has been signed electronically. [facility] 01/04/2018 8:05 AM CDT Lisa Rolon MD GI PROCEDURE ORDERABLES Edited Result - Final [facility] * HEPATITIS SCREEN ACUTE (05/31/2017 8:52 AM BOILER CLEANER) HAV Antibody IgM Non Reactive Non Reactive 05/31/2017 3:54 PM BOILER CLEANER [facility] HBsAg Non Reactive Non Reactive 05/31/2017 3:54 PM BOILER CLEANER [facility] HBc Antibody IgM Non Reactive Non Reactive 05/31/2017 3:54 PM BOILER CLEANER [facility] HCV Antibody Screen Non Reactive Non Reactive 05/31/2017 3:54 PM BOILER CLEANER [facility] HCV S/C Ratio 0.17 0.00 - 0.79 05/31/2017 3:54 PM BOILER CLEANER [facility] Comment: Xjeuqt-jd-srtobc ratio (S/CO) <0.80: Non Reactive Blood BLOOD SPECIMEN / Unknown Venipuncture / Unknown 05/31/2017 8:52 AM BOILER CLEANER 05/31/2017 9:21 AM BOILER CLEANER Narrative [facility] - 05/31/2017 3:54 PM BOILER CLEANER Non Reactive - Antibodies to Hepatitis C virus (HCV) were not detected, result does not exclude early acute HCV infection. Non Reactive - Antibodies to Hepatitis C virus (HCV) were not detected, result does not exclude early acute HCV infection. Jimmie Hampton MD LAB - CHEMISTRY ORDERABLES Final Result Performing Organization Address City/State/[facility] Co de Phone Number [facility] [address] [place] [address] from Last 3 Months or Most Recently Relevant to Health Maintenance Insurance MEDICARE [employer] MEDICARE ADV HMO & PPO MEDICARE MEDICARE SELF PAY NO INSURANCE Member Subscriber Plan / Payer (Ef fective for All Dates) Name:Melody Arreola Relation to Subscriber:Self Name:Melody Arreola Payer ID:Not on file Group ID:Not on file Type:Self Pay Address: [place], [place] Advance Directives * Full Code (Latest Code Status on File) Date Activated Date Inactivated Comments 05/26/2018 12:22 AM 05/26/2018 6:06 PM * Full Code Date Activated Date Inactivated Comments 05/26/2018 12:22 AM 05/26/2018 12:22 AM * Full Code Date Activated Date Inactivated Comments 04/29/2017 10:56 AM 04/30/2017 2:50 PM * Full Code Date Activated Date Inactivated Comments 08/27/2016 7:14 AM 08/28/2016 6:12 PM * Full Code Date Activated Date Inactivated Comments 07/31/2016 1:19 AM 08/02/2016 4:31 PM Care Teams Airport Clerk Relationship Specialty Start Date End Date Jennifer Mccoy RN Juice Tester 03/31/16 Fany Archuleta APRN-[employer]NAGER [address] [address] [place] [address] Nurse Practitioner Nurse Practitioner 04/09/16 Ondina Brannon EEG TECH [place] Terminal Gauger Supervisor 07/31/16 [place] [id number] [facility] [address] [place] [id number] Medical Office Asst Rheumatology 05/31/17
[2025-01-14 15:28] LABS: Procalcitonin 0.1 ng/mL
--- NOTE | 2025-01-14 15:34 | PC.NURSE ---
patient to imaging at this time
[2025-01-14 15:38] LABS: Influenza A QL RT-PCR Negative (Negative); Influenza B QL RT-PCR Negative (Negative); RSV RNA, RT-PCR Negative (Negative); SARS-CoV-2 RNA PCR Negative (Negative)
[2025-01-14] MEDS: SODIUM CHLORIDE 0.9% IV 1,000 ML 999 ML IV CONT (15:51)
[2025-01-14] MEDS: HYDROmorphone HCL INJ (*CRX) 2 MG/ML VIAL 0.5 MG IV PUSH (15:51)
[2025-01-14 16:46] LABS: Add Urine Microscopic? YES; Appearance Urine Cloudy (Clear); Glucose Urine UA Negative (Negative); Leukocyte Esterase Ur 1+ LEU/UL (Negative); Nitrate Urine Negative (Negative); Non Pathogenic Casts >20; Specific Grav Ur 1.021 (1.001-1.035)
--- NOTE | 2025-01-14 17:06 | ED_ITS ---
HPI - General Adult General Chief complaint: Recheck/Abnormal Lab/Rx Stated complaint: stemi Time Seen by Provider: 01/14/25 14:43 History of Present Illness HPI narrative: Patient is a 62-year-old female who presents emergency department with chief complaint of fluttering in her chest nausea feeling lethargic and low blood pressure. Patient has history of colon cancer liver cancer breast cancer and metastatic lesions to her bone patient is followed at [facility] patient reports she has pain over entire body denies chest discomfort at this point EMS was concerned for possible STEMI and was activated as a pre-hospital STEMI EKG was reviewed by myself and cardiology as well as EKG here did not show evidence of ST elevation AK and the patient was not having active chest pain Related Data Allergies Allergy/AdvReac Type Severity Reaction Status Date / Time iodine Allergy Intermediate Hives Verified 01/14/25 15:01 gabapentin Allergy Mild Unknown Verified 01/14/25 15:01 gadobenic acid Allergy Mild Itching Verified 01/14/25 15:01 Iodinated Contrast Media Allergy Mild Hives Verified 01/14/25 15:01 lisinopril Allergy Mild Itching Verified 01/14/25 15:01 oxycodone Allergy Mild Itching Verified 01/14/25 15:01 Penicillins Allergy Mild Rash Verified 01/14/25 15:01 [id number] Reductase Allergy Mild Unknown Verified 01/14/25 15:01 Inhibitor fentanyl AdvReac Mild Unknown Verified 01/14/25 15:01 morphine AdvReac Mild Hives Verified 01/14/25 15:01 Review of Systems 2 Review of Systems: A 10 system review of systems was completed on the patient and is negative except for what is stated in the HPI. Nursing and ancillary documentation was reviewed. Exam 2 Narrative: GENERAL: Well-appearing, well-nourished, and in no acute distress. HEAD: Normocephalic, atraumatic. EYES: PERRLA and EOMI. ENT: Nares clear, no rhinorrhea or epistaxis. Mucous membranes moist. NECK: Supple. CHEST: Clear to auscultation. No respiratory distress. HEART: Regular rate and rhythm. No murmur heard. Normal peripheral pulses. ABDOMEN: Soft, nontender, nondistended, normal active bowel sounds. EXTREMITIES: Normal range of motion. No edema. SKIN: Warm, dry, no rash. NEURO: No focal deficits. Alert and oriented x3. PSYCH: Normal mood and affect. Course Vital Signs Vital signs: Vital Signs Pulse Rate 69 01/14/25 14:36 Respiratory Rate 15 01/14/25 14:36 Blood Pressure 109/66 01/14/25 14:36 Pulse Oximetry 92 01/14/25 14:36 Oxygen Delivery Room Air 01/14/25 14:36 Temperature 36.3 C L 01/14/25 16:51 Pulse Rate 90 01/14/25 19:24 Respiratory Rate 14 01/14/25 19:24 Blood Pressure 130/73 01/14/25 19:24 Pulse Oximetry 95 01/14/25 19:24 Oxygen Delivery Room Air 01/14/25 14:36 Medical Decision Making MDM Narrative Medical decision making narrative: Differential diagnosis includes chronic pain, urinary infection, sepsis, ACS EKG showed no acute ischemic changes troponin was negative Laboratory studies showed a CBC with white count of 10.1 electrolytes showed a BUN of 33 and creatinine 1.76 lactic acid was initially elevated at 3.3 but subsequently has come down 1.8 with hydration troponin was less than 0.012 BNP was 5 5 1 urinalysis showed 1+ leukocyte esterase and 6-[address] scan of the chest abdomen pelvis showed multiple metastatic lesions unfortunately do not have a comparison scan as all of her studies have been done at an outlying facility CT head showed no acute abnormality Patient is still having significant pain and difficulty ambulating plan was to admit the patient for pain control the case had been discussed with our local hospitalist who felt the patient had be better served transferred back to the facility where she receives all of her care at the cast was discussed with the nurse practitioner raymundo alberts and the patient accepted by Dr. Braden at [facility] Vital Signs Vital Signs: Vital Signs Pulse Rate 69 01/14/25 14:36 Respiratory Rate 15 01/14/25 14:36 Blood Pressure 109/66 01/14/25 14:36 Pulse Oximetry 92 01/14/25 14:36 Oxygen Delivery Room Air 01/14/25 14:36 Temperature 36.3 C L 01/14/25 16:51 Pulse Rate 90 01/14/25 19:24 Respiratory Rate 14 01/14/25 19:24 Blood Pressure 130/73 01/14/25 19:24 Pulse Oximetry 95 01/14/25 19:24 Oxygen Delivery Room Air 01/14/25 14:36 Lab Data 01/14/25 14:53 01/14/25 14:53 Labs: Lab Results 01/14/25 01/14/25 01/14/25 Range/Units 14:53 16:17 17:48 WBC 10.1 H (4.5-10.0) K/mm3 RBC 4.36 (4.2-5.4) M/mm3 Hgb 11.5 L (12.0-15.0) g/dL Hct 37.1 (37.0-47.0) % MCV 85.1 (80-100) fl MCH 26.4 (26-34) pg MCHC 31.0 L (32-36) g/dl RDW 17.2 H (11.5-14.5) % Plt Count 315 (150-375) k/mm3 MPV 9.9 (7.4-10.4) fl Immature Gran % (Auto) 0.9 H (0-0.5) % Neut % (Auto) 74.2 H (45.5-73.1) % Lymph % (Auto) 15.1 L (18.3-44.2) % Rankin % (Auto) 7.0 (2.6-8.5) % Eos % (Auto) 2.1 (0-4.4) % Baso % (Auto) 0.7 (0.2-1.2) % Lymph # (Auto) 1.53 (0.9-3.2) K/mm3 Rankin # (Auto) 0.7 H (0.1-0.6) K/mm3 Eos # (Auto) 0.2 (0-0.3) K/mm3 Baso # (Auto) 0.1 (0.0-0.1) K/mm3 Abs Immat Gran (auto) 0.09 H (0.00-0.031) K/mm3 Absolute Neuts (auto) 7.5 H (1.3-6.7) K/mm3 Absolute Nucleated RBC 0.000 (0.0-0.012) K/mm3 Nucleated RBC % 0.0 (0.0-0.2) % PT 13.3 (11.1-14.7) Seconds INR 1.0 APTT 28.9 (22.3-36.8) Seconds Sodium 141 (137-145) mmol/L Potassium 3.8 (3.4-5.0) mmol/L Chloride 103 (98-107) mmol/L Carbon Dioxide 29 (22-30) mmol/L Anion Gap 9 (4-12) mmol/L BUN 33 H (7-17) mg/dL Creatinine 1.76 H (0.7-1.0) mg/dL Estim Creat Clear Calc 35 ml/min Estimated GFR 29 L (59 - ) Glucose 204 H (65-110) mg/dL Lactic Acid 3.3 H 1.8 (0.7-2.0) mmol/L Calcium 9.5 (8.4-10.2) mg/dL Magnesium 1.9 (1.6-2.3) mg/dL Total Bilirubin 0.6 (0.2-1.3) mg/dL AST 28 (14-36) U/L ALT 24 (6-35) U/L Alkaline Phosphatase 67 (38-126) U/L Troponin I < 0.012 < 0.012 (0.000-0.034) ng/mL NT-Pro-B Natriuret Pep 551 H (19.9-100) pg/mL Total Protein 7.4 (6.3-8.2) g/dL Albumin 4.0 (3.5-5.1) g/dL Lipase 33 (23-300) U/L Procalcitonin 0.1 ng/mL Urine Color Dark yellow (Yellow) Urine Appearance Cloudy H (Clear) Urine pH 5.0 (5.0-9.0) Ur Specific [place] 1.021 (1.001-1.035) Urine Protein 2+ H (Negative) mg/dL Urine Glucose (UA) Negative (Negative) mg/dL Urine Ketones 1+ H (Negative) mg/dL Ur Blood (Man) Negative (Negative) Urine Nitrate Negative (Negative) Urine Bilirubin 1+ H (Negative) Urine Urobilinogen 1.0 (<2.0) mg/dL Leukocyte Esterase Rfl 1+ H (Negative) RADHA/UL Urine RBC 0-2 (0-2) /hpf Urine WBC 6-10 H (0-3) /hpf Ur Squamous Epith Cells Occasional (Few) /hpf Urine Bacteria Rare /hpf Urine Casts >20 Hyaline Casts Present (None) /lpf Ethyl Alcohol < 10 (<10) mg/dL Influenza A (RT-PCR) Negative (Negative) Influenza B (RT-PCR) Negative (Negative) RSV (RT-PCR) Negative (Negative) SARS-CoV-2 RNA (RT-PCR) Negative (Negative) Discharge Plan Discharge Clinical Impression: Metastatic disease, Generalized pain, Generalized muscle weakness Patient Disposition: Acute Care Hospital Condition: Stable Patient Language: Setswana Follow-up/Referrals: Osito Hong [Other] Time of Disposition: 19:36
[2025-01-14 18:19] LABS: Troponin I < 0.012 ng/mL (0.000-0.034)
--- NOTE | 2025-01-14 19:23 | PC.NURSE ---
Report received from AUBREY Lacy. Assumed care of patient at this time.
--- NOTE | 2025-01-14 19:24 | PC.NURSE ---
Patient ambulated to the bathroom and back to her room with steady unassisted gait.
--- NOTE | 2025-01-14 21:22 | PC.NURSE ---
Patient informed that bed may not be available until tomorrow at [facility]. Patient offered a hospital bed at this time, patient states I am ok, this bed is fine. Patient was also given sandwich with drink and pudding. Patient denies any pain or has no complaints at this time. Call light within reach.
--- NOTE | 2025-01-14 22:52 | PC.NURSE ---
2235 Patient is accepted and room assignment given for [facility] in [place]. Patient going to room 229, report called to AUBREY Reich at 2234 to phone number [phone]. Patient updated on room assigment.
--- NOTE | 2025-01-14 23:49 | PC.NURSE ---
EMS here to transport patient to [facility]. Patient was able to walk to EMS stretcher with stand by assist. Patient transferred with her chart and belongings.
[2025-01-14 23:52] LABS: Cannabinoid Screen Urine Positive (Negative)
== END 2025-01-15 00:07 | disposition short-term general hospital (02) ==
PROVIDERS: Emergency Provider Emergency Medicine
DX: C18.9 Malignant neoplasm of colon, unspecified (principal); C78.7 Secondary malignant neoplasm of liver and intrahepatic bile duct; C79.51 Secondary malignant neoplasm of bone; C50.919 Malignant neoplasm of unspecified site of unspecified female breast; G89.3 Neoplasm related pain (acute) (chronic); R53.1 Weakness; Z20.822 Contact with and (suspected) exposure to COVID-19
CPT/HCPCS: 36415; 70450; 71045; 71250; 74176; 80053; 80307; 81001; 82077; 83605; 83690; 83735; 83880; 84145; 84484; 85025; 85610; 85730; 87086; 87637; 93005; 96361; 96374; 99285; J1171; J7030